=== PATIENT | female | born 1980 | race Caucasian/White ===

== ENCOUNTER 2023-02-12 11:07 | Day surgery (SDC) | payer MEDICARE, MEDICAID, SELFPAY ==
[2023-02-12 06:17] VITALS: BMI 23.8
--- NOTE | 2023-02-12 09:56 | P.CONAN_ITS ---
[facility], [facility] Past Medical History Medical History (Updated 02/12/23 @ 11:39 by Selena Bates RN) Depressed Depression History of electroconvulsive therapy Family History Family history of problems with anesthesia: No Surgical History Surgical History (Updated 02/12/23 @ 11:36 by Selena Bates RN) H/O tooth extraction History of Problems with Anesthesia: No Social History Social History (Updated 02/12/23 @ 11:39 by Selena Bates RN) Patient Tobacco Use Status: Former Tobacco user Are you DNR?: No Advance Directives: No Advance Directives Information Provided: Yes Patient : No FDLMP: 2 WEEKS AGO Meds Allergies Allergy/AdvReac Type Severity Reaction Status Date / Time Sulfa (Sulfonamide Allergy Mild NAUSEA & Verified 02/12/23 11:47 Antibiotics) VOMITING [Sulfa (Sulfonamides)] venlafaxine [From Effexor] Allergy Mild RASH Verified 02/12/23 11:47 sulfamethoxazole AdvReac Mild NAUSEA Verified 02/12/23 11:47 [From Bactrim] trimethoprim [From Bactrim] AdvReac Mild NAUSEA Verified 02/12/23 11:47 Home Medications Medication Instructions Recorded Confirmed Last Taken Type buspirone 30 mg tablet 30 mg PO BID 02/12/23 02/12/23 02/09/23 History cholecalciferol (vitamin D3) 125 125 mcg PO DAILY 02/12/23 02/12/23 02/09/23 History mcg (5,000 unit) capsule famotidine 20 mg tablet 20 mg PO DAILY 02/12/23 02/12/23 02/09/23 History propranolol 10 mg tablet 10 mg PO TID 02/12/23 02/12/23 02/09/23 History sertraline 100 mg tablet 100 mg PO BID 02/12/23 02/12/23 02/09/23 History Exam Exam Date and Time: February 12, 2023 0956 Height,Weight and Vital Signs: Height 5 ft 1 in Weight 57.153 kg Airway Mallampati Class: II (caps top front 2) TM Dist: >3cm Neck ROM: Full Heart: rrr Lungs: cta Assessment and Plan Assessment Anesthesia Assessment: Anesthesia Plan Discussed and Chart Reviewed Final Anesthetic Review Family History of Problems with Anesthesia: No History of Problems with Anesthesia: No NPO: Yes ASA Class: II Final Preanesthetic Review: No Changes in Pt Med Stat, Meds/Allgs Chart Reviewed and Consent Obtained/Reviewed Patient Risk: Intermediate Procedure Risk: Intermediate Anesthetic Plan Anesthetic Plan: MAC: Disposition: Standard PACU
[2023-02-12 11:28] VITALS: BP 123/98; PULSE 85; RESP 20; TEMP 36.6; O2SAT 96
[2023-02-12 12:12] LABS: UPreg QC Valid YES; Urine Pregnancy NEGATIVE (NEGATIVE)
[2023-02-12 13:50] VITALS: BP 109/71; PULSE 75; RESP 16; TEMP 36.5; O2SAT 99
--- NOTE | 2023-02-12 14:00 | PM.OP ---
Brief Operative Note Date of Service: 02/12/23 Pre-op diagnosis: Abnormal CT of colon Post-op diagnosis: other (Sigmoid colon mass, colon polyps) Procedure: Colonoscopy to the cecum with biopsies of distal sigmoid colon mass, hot snare polypectomy x 2, placement of 2 Resolution clips at the 25cm polypcetomy site, and placement of submucosal ink Surgeon: Ashok Travis Anesthesia: MAC Was an [employer] used for this Procedure?: No Estimated blood loss (mL): 3.0 Pathology: other (A. Ascending colon B. Ascending colon polyp C. Polyp at 25cm D. Sigmoid mass at 15cm) Condition: stable Disposition: PACU
[2023-02-12 14:05] VITALS: BP 122/74; PULSE 71; RESP 16; TEMP 36.5; O2SAT 99
--- NOTE | 2023-02-13 00:01 | OP_ITS ---
DATE OF SERVICE: 02/12/2023 SURGEON: Ashok Travis MD INDICATIONS: The patient presents for evaluation of abnormal CT scan of colon and change in bowel habits. Full consent has been obtained from her for this, including risks of bleeding and perforation. PREOPERATIVE DIAGNOSIS: POSTOPERATIVE DIAGNOSIS: PROCEDURE PERFORMED: Colonoscopy to the cecum with biopsies, placement of submucosal ink markings, hot snare polypectomy x 2, placement of Resolution clips on the polypectomy site at 25 cm, and biopsies of colon mass. ESTIMATED BLOOD LOSS: COMPLICATIONS: ANESTHESIA: Monitored anesthesia care. ASSISTANTS: SPECIMENS: PREOPERATIVE DIAGNOSES: Abnormal CT scan of colon and change in bowel habits. POSTOPERATIVE DIAGNOSES: Abnormal CT scan of colon and change in bowel habits, distal sigmoid colon mass, colon polyps, rule out microscopic colitis, and small internal hemorrhoids. DESCRIPTION OF PROCEDURE: The patient was placed in the left lateral decubitus position. The digital rectal exam revealed no abnormalities. The [employer] video pediatric colonoscope was entered into the rectum and advanced easily to the cecum. Once in the cecum, I did identify a normal-appearing cecal pouch with appendiceal orifice and a normal-appearing ileocecal valve. The entire cecum and ileocecal valve appeared normal. There was transillumination of light deep in the right lower quadrant. The scope was then slowly withdrawn assessing all mucosal surfaces carefully. Preparation was excellent. I did not visualize any signs of colitis nor angiodysplasias. I did obtain random biopsies in the ascending colon to rule out microscopic colitis. In the ascending colon was an approximately 8 mm flat, but raised polyp which was removed by hot snare polypectomy and recovered by suction. The polypectomy site appeared clean, without any sign of residual polyp nor bleeding. At 25 cm was a large, approximately 1.5 to 2.0 cm polyp on a long stalk. The polyp was somewhat friable, but without ulceration nor any definitive malignancy judging grossly. I did place 2 clips at the base of the stalk and then removed the polyp at the level of the stalk just above the clips with hot snare. The polyp was recovered with the retrieval net and brought out of the patient. The scope was advanced back to the polypectomy site, which appeared to be clean and without any sign of residual polyp nor bleeding. Both clips remained on the polypectomy site. I did place a submucosal ink parvin just distal to that polypectomy site. At the distal sigmoid colon at approximately 15 cm, definitely above the rectum, was a large, multilobulated polypoid lesion encompassing half the circumference of the colon on a very broad base. Given its appearance, I did not feel this was amenable to endoscopic removal. Multiple biopsies were obtained from it. It was somewhat friable. The lesion definitely obviously appeared to be at least a villous adenoma, but there was no ulceration. After the biopsies, I did place submucosal ink lemon just proximal and just distal to the lesion. In the rectum, the scope was retroflexed visualizing some small internal hemorrhoids but no other pathology. The rectal mucosa appeared normal on both the forward viewing and retroflexed positions. The scope was then withdrawn from the patient. She tolerated the procedure well and was returned to the recovery area in stable condition. IMPRESSION: 1. Distal sigmoid colon mass. 2. Colon polyps. PLAN: The results of the pathology will be checked. Given the large distal sigmoid colon mass, I expect she will definitely need surgery given its appearance even if today's biopsies do not show any malignancy. She will be scheduled to meet with a surgeon in the very near future. She was advised to stay off all aspirin and NSAIDs long-term. She will need a followup colonoscopy in 1 year. Her siblings should be checked as well given her young age. This has all been reviewed with her sister, Jeremy, who is waiting for her today. MD KIRSTEN Arnold/ALVARO / [id number] MTDD
== END 2023-02-12 14:30 | disposition home or self-care (01) ==
PROVIDERS: Anesthesiology; PCP Registered Nurse; Visit Provider Internal Medicine
PROC: 0DJD8ZZ Inspection of Lower Intestinal Tract, Via Natural or Artificial Opening Endoscopic (ICD-10-PCS; CPT 45378; principal; 2023-02-12 12:20)
DX: R19.4 Change in bowel habit (principal); R19.7 Diarrhea, unspecified; D12.2 Benign neoplasm of ascending colon; D12.5 Benign neoplasm of sigmoid colon; D12.7 Benign neoplasm of rectosigmoid junction; K63.9 Disease of intestine, unspecified; K21.9 Gastro-esophageal reflux disease without esophagitis; K64.8 Other hemorrhoids; Z79.899 Other long term (current) drug therapy; Z88.2 Allergy status to sulfonamides; Z88.8 Allergy status to other drugs, medicaments and biological substances
CPT/HCPCS: 45385; 45380; 45381; 81025; 88305

== ENCOUNTER 2023-02-17 09:14 | Outpatient (REF) | payer MEDICARE, MEDICAID, SELFPAY ==
[2023-02-17 09:35] LABS: MANUAL DIFF FLAG NO
[2023-02-17 10:32] LABS: Basophils Percent Auto 0.3 % (0-2); Eosinophils Absolute Auto 0.1 X10*3/uL (0.0-0.4); Eosinophils Percent Auto 1.1 % (0-4); Imm Gran Abs Auto 0.01 X10*3/uL (0.00-0.03); Imm Gran Pct Auto 0.2 % (0.0-0.4); Lymphocytes Absolute Auto 1.4 X10*3/uL (1.2-4.9); Lymphocytes Percent Auto 21.8 % (20-40); Mean Corpuscular HGB Conc 32.6 g/dl (31.0-35.0); Mean Corpuscular Hemoglobin 28.1 pg (27.0-33.0); Mean Corpuscular Volume 86.3 fL (80.0-98.0); Mean Platelet Volume 10.2 fL (9.4-12.3); Monocytes Absolute Auto 0.4 X10*3/uL (0.1-1.2); Monocytes Percent Auto 7.1 % (2-11); Neutrophils Absolute Auto 4.3 x10*3/uL (2.0-8.3); Neutrophils Percent Auto 69.5 % (45-73); Platelet Count 270 X10*3/uL (160-400); Red Blood Count 5.33 X10*6/uL (4.20-5.50); Red Cell Distribution Width 13.5 % (11.0-16.0); White Blood Count 6.2 X10*3/uL (4.8-10.8)
[2023-02-17 11:27] LABS: Alanine Aminotransferase 11 U/L (0-31); Albumin Level 4.4 g/dL (3.5-5.0); Alkaline Phosphatase 73 U/L (39-117); Aspartate Amino Transferase 16 U/L (5-31); Bilirubin Direct 0.2 mg/dL (0.0-0.5); Bilirubin Total 0.8 mg/dL (0.0-1.0); Total Protein 7.1 g/dL (6.5-8.0)
[2023-02-17 11:50] LABS: Carcinoembryonic Antigen < 1.73 ng/mL
== END 2023-02-17 09:15 | disposition home or self-care (01) ==
LOC: HO.LAB 09:14
PROVIDERS: PCP Registered Nurse; Visit Provider Internal Medicine
DX: K63.89 Other specified diseases of intestine (principal)
CPT/HCPCS: 36415; 80076; 82378; 85025

== ENCOUNTER → 2023-02-18 14:22 | Outpatient (BNVA) | payer MEDICARE, MEDICAID, SELFPAY | PROVIDERS: PCP Registered Nurse; Referring Provider Internal Medicine; Visit Provider Surgery | DX: K63.89 Other specified diseases of intestine (principal); K21.9 Gastro-esophageal reflux disease without esophagitis; F41.8 Other specified anxiety disorders | CPT/HCPCS: 99202 ==

== ENCOUNTER 2023-03-04 06:00 | Inpatient (IN) | payer MEDICARE, MEDICAID, SELFPAY ==
[2023-02-24 10:20] VITALS: BMI 23.8
--- NOTE | 2023-03-03 08:50 | P.CONAN_ITS ---
Documented by User: Sydnee Clements NP 03/03/23 08:50 HPI - Anesthesia Eval Consult details Narrative: 42yo F for Hand Assist Colon Resection Laparoscopic Sigmoid,poss open ,poss stoma s/p colo 01/2023 with MAC PMFSH Active Problems Active Problems: All Active Problems (Updated 02/24/23 @ 10:19 by Amarilis Lerma RN) Mass of colon (Acute) Past Medical History Medical History Anxiety Depression GERD (gastroesophageal reflux disease) History of electroconvulsive therapy Family History Family history of problems with anesthesia: No Surgical History Surgical History H/O tooth extraction Hx of colonoscopy History of Problems with Anesthesia: No Social History Social History (Updated 02/24/23 @ 09:42 by Amarilis Lerma RN) Household Members Other:: roomate Are you a primary care management associate to a significant other at home: No Do you presently have visiting nurse or other home services: No Patient Tobacco Use Status: Former Tobacco user Tobacco use type: Smokeless Tobacco e-Cigarette/Vaping Use: Currently Using Substance Use Type: Marijuana Meds Allergies Allergy/AdvReac Type Severity Reaction Status Date / Time Sulfa (Sulfonamide Allergy Mild NAUSEA & Verified 03/04/23 06:27 Antibiotics) VOMITING [Sulfa (Sulfonamides)] venlafaxine [From Effexor] Allergy Mild RASH Verified 03/04/23 06:27 sulfamethoxazole AdvReac Mild NAUSEA Verified 03/04/23 06:27 [From Bactrim] trimethoprim [From Bactrim] AdvReac Mild NAUSEA Verified 03/04/23 06:27 Home Medications Medication Instructions Recorded Confirmed Last Taken Type buspirone 30 mg tablet 30 mg PO BID 02/12/23 02/24/23 03/04/23 05:00 History cholecalciferol (vitamin D3) 125 125 mcg PO DAILY 02/12/23 02/24/23 03/03/23 History mcg (5,000 unit) capsule famotidine 20 mg tablet 20 mg PO BEDTIME 02/12/23 02/24/23 03/03/23 History propranolol 10 mg tablet 10 mg PO BID 02/12/23 02/24/23 03/04/23 05:00 History sertraline 100 mg tablet 200 mg PO DAILY 02/12/23 02/24/23 03/04/23 05:00 History Exam Exam Date and Time: March 03, 2023 0850 Height,Weight and Vital Signs: Height 5 ft 1 in Weight 57.153 kg Assessment and Plan Assessment Anesthesia Assessment: Chart Reviewed Final Anesthetic Review Family History of Problems with Anesthesia: No History of Problems with Anesthesia: No Documented by User: Georgi Fagan MD 03/04/23 07:31 PENDING SALE TO [facility] Past Medical History Medical History Anxiety Depression GERD (gastroesophageal reflux disease) History of electroconvulsive therapy Surgical History Surgical History H/O tooth extraction Hx of colonoscopy Social History Social History (Updated 02/24/23 @ 09:42 by Amarilis Lerma RN) Household Members Other:: roomate Are you a primary care management associate to a significant other at home: No Do you presently have visiting nurse or other home services: No Patient Tobacco Use Status: Former Tobacco user Tobacco use type: Smokeless Tobacco e-Cigarette/Vaping Use: Currently Using Substance Use Type: Marijuana Meds Allergies Allergy/AdvReac Type Severity Reaction Status Date / Time Sulfa (Sulfonamide Allergy Mild NAUSEA & Verified 03/04/23 06:27 Antibiotics) VOMITING [Sulfa (Sulfonamides)] venlafaxine [From Effexor] Allergy Mild RASH Verified 03/04/23 06:27 sulfamethoxazole AdvReac Mild NAUSEA Verified 03/04/23 06:27 [From Bactrim] trimethoprim [From Bactrim] AdvReac Mild NAUSEA Verified 03/04/23 06:27 Home Medications Medication Instructions Recorded Confirmed Last Taken Type buspirone 30 mg tablet 30 mg PO BID 02/12/23 02/24/23 03/04/23 05:00 History cholecalciferol (vitamin D3) 125 125 mcg PO DAILY 04/02/24/23 03/03/23 History mcg (5,000 unit) capsule famotidine 20 mg tablet 20 mg PO BEDTIME 02/12/23 02/24/23 03/03/23 History propranolol 10 mg tablet 10 mg PO BID 02/12/23 02/24/23 03/04/23 05:00 History sertraline 100 mg tablet 200 mg PO DAILY 02/12/23 02/24/23 03/04/23 05:00 Histor y Exam Airway Mallampati Class: I TM Dist: >3cm Neck ROM: Full Heart: ok Lungs: ok Assessment and Plan Assessment Anesthesia Assessment: Anesthesia Plan Discussed Final Anesthetic Review NPO: Yes ASA Class: II Final Preanesthetic Review: No Changes in Pt Med Stat, Meds/Allgs Chart Reviewed, Consent Obtained/Reviewed and Anes Risks/Benef Reviewed Patient Risk: Low Procedure Risk: Intermediate Anesthetic Plan Anesthetic Plan: GA and Agree w/ Assess. and Plan Disposition: Standard PACU
[2023-03-04] VITALS (13 sets, daily range): BP systolic 103–159; BP diastolic 63–83; PULSE 58–85; RESP 12–20; TEMP 36–37; O2SAT 93–99
--- NOTE | 2023-03-04 | ECG_ITS ---
Test Reason : preop Blood Pressure : / mmHG Vent. Rate : 061 BPM Atrial Rate : 061 BPM P-R Int : 180 ms QRS Dur : 084 ms QT Int : 440 ms P-R-T Axes : 068 065 032 degrees QTc Int : 442 ms Normal sinus rhythm Normal ECG When compared with ECG of 22-MAR-2011 19:24, No significant change was found Referred By: Sydnee Clements Electronically Signed By:MARIMAR RIBEIRO MD
[2023-03-04 06:27] LABS: UPreg QC Valid YES; Urine Pregnancy NEGATIVE (NEGATIVE)
[2023-03-04 06:50] LABS: Anion Gap 13 (12-20); Blood Urea Nitrogen 10 mg/dL (9-16); Calcium 9.5 mg/dL (8.4-10.2); Carbon Dioxide 23 mmol/L (22-29); Chloride 105 mmol/L (96-108); Creatinine Clr Calc Pharmacy 53.6; Estimated Glomerular Filt Rate 60; Glucose Fasting 96 mg/dL (60-99); Potassium 3.3 mmol/L (3.3-5.1); Sodium 138 mmol/L (135-145)
[2023-03-04] MEDS: Lactated Ringers 1,000 ML 100 ML IVCONT (07:00)
--- NOTE | 2023-03-04 07:47 | MHC.SHP ---
Pre-Procedural Eval Section A Date of Service: 03/04/23 The patient is an INPATIENT: No Changes since office visit: No Cold of Flu in the past 2 weeks, No New Medical Problems, No Changes in Medication and No Patient answered all questions The History & Physical has been completed within 30 days and I have reviewed it.: Yes Section B Chief Complaint: Other specified diseases of intestine Allergies: Allergies Allergy/AdvReac Type Severity Reaction Status Date / Time Sulfa (Sulfonamide Allergy Mild NAUSEA & Verified 03/04/23 06:27 Antibiotics) VOMITING [Sulfa (Sulfonamides)] venlafaxine [From Effexor] Allergy Mild RASH Verified 03/04/23 06:27 sulfamethoxazole AdvReac Mild NAUSEA Verified 03/04/23 06:27 [From Bactrim] trimethoprim [From Bactrim] AdvReac Mild NAUSEA Verified 03/04/23 06:27 Plan I have reviewed the history and physical and performed a pertinent physical examination on my patient. No changes have occurred unless specified. Time Spent With Patient Time: Total time managing care of this patient today ____ minutes.
--- NOTE | 2023-03-04 10:17 | W.PM.OPN ---
Operative Note Operative Note Date of Service: 03/04/23 Narrative: Preop diagnosis: Large polyp, rectosigmoid Postop diagnosis: Large polyp, rectosigmoid Procedure: Hand assisted laparoscopic anterior resection with intraop flexible sigmoidoscopy Surgeon: Agus Lackey MD administrative office assistant: ROCAEL Silva The patient is a 42-year-old female who had undergone recent colonoscopy because of complaints of severe diarrhea and was noted to have a large polyp at level 15 cm. 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 I had explained to her the technique of resection, hand assisted laparoscopic. I reviewed the risks including but not limited to bleeding, infections anastomotic leak, conversion to open, the need for stoma temporarily, as well as the benefits and alternatives. She had given consent. She was brought to the operating room. She was placed in modified lithotomy position under general anesthesia via endotracheal tube. A Dominique catheter was inserted. The abdomen and the perianal area and perineum were prepped and draped in the usual sterile fashion. A surgical time-out was done. The patient received Cefotan 2 g IV preoperatively. I made a short incision on the midline the like this longitudinal using blade 15. This was carried down with electrocautery through the full-thickness of the skin subcutaneous fat down to the fascia. The fascia was incised. The peritoneum was entered. Through this incision the axis wound retractor was position. The GelPort was attached to this and we insufflated through a port to a pressure of 15 mm hg. With the camera through this insufflating port, I proceeded to then insert a 5/12 mm port in the epigastric area. The camera was moved to this port. I then proceeded to place my hand through the GelPort. With laparoscopic visualization using a 30 degree 10 mm scope, I proceeded to insert a 5 status well in a port in the right lower quadrant. The patient was placed in a head-down and [id number] position. We retracted all the bowel loops away from the pelvis. By doing so was able to visualize the rectum and I proceeded to follow this all with the left colon. I palpated this entire left colon all the way to the rectum. I was able to visualize areas in the sigmoid which had been mention in the op note For the colonoscopy. In the more distal margin, I could feel a mass which was fairly smooth, and mobile with the large polyp. This was actually in the rectosigmoid. I therefore had to mobilize the rectum proceed with an anterior resection to be able to remove this with margins. I incise the peritoneum lateral to the rectosigmoid using the LigaSure. I then continued to incise the peritoneum distally lateral to the rectum going anteriorly using the LigaSure. I proceeded to do the same procedure on the left side of the rectum, incising the peritoneum and connecting the incision anteriorly. At this time therefore, it appeared that the rectum was well mobilized close the floor. I was able to feel clear margins distal to this large polyp with adequate pace for resection. We had to mobilize the rest of the sigmoid by dividing the attachments to the sidewall using the LigaSure. I proceeded to open up the ligaments along the white line of Toldt using the LigaSure as well. I had to mobilize the splenic flexure as well with the LigaSure to allow as adequate length to bring the proximal resected sigmoid down to the pelvis. I could clearly see the spleen we were able to divide the splenocolic attachments without difficulty by placing the patient in head-up position and being on the colon inferiorly At this time it appeared that we had good length to allow anastomosis without tension I proceeded to then thin out a segment the proximal rectus on using the LigaSure. This allowed me to create a mesenteric window. I retracted on the rectum to allow space for placement and positioning of the stapler I was able to position an Endo-SHARATH powered stapler, 60 mm through the right lower quadrant port all way to the pelvis. I positioned this across this proximal rectum through the mesenteric defect. This was fired the proximals rectum at this point was transected Do then continued to mobilize the rest of the sigmoid although the left colon by dividing and incising the peritoneal attachments. I proceeded to use a point of transection at the level of the left colon/ sigmoid. I created a mesenteric window. I divided this laparoscopically as well with an Endo-SHARATH 30 60 mm powered stapler. I palpated for the pedicle the mesentery of the sigmoid. I divided the mesentery at pants proximal distal to this. Once we had the pedicle clearly defined, proceeded to then bring this loop out through the incision by removing the GelPort. I did ligation of this pedicle an open manner to allow clamps across the pedicle. I transected this pedicle Metzenbaum scissors. I ligated the proximal stump of the pedicle twice using a Polysorb 2-0 tie. I completed transection of the mesentery and the entire specimen was removed. This was sent for immediate gross exam . I observed the divided mesentery these all appeared to be hemostatic I then proceeded to open up the staple line of the proximal stump at the left colon. This was excised with electrocautery. To a medium-sized dilator. I then created a pursestring stitch on the proximal stump using a Prolene 2-0 in preparation for our end-to-end anastomosis. I examined this stump this appeared to be well vascularized without any ischemia. I then proceeded to examine the pelvis. There was note of good hemostasis. The staple line on the rectal stump appeared intact. The 1st assistant in nursing, ROCAEL Silva then proceeded to use the dilator all the way to the stump. We used the 28 mm EEA stapler apparatus all the way into the stump with constant pressure applied to this. We center the EEA stapler anterior to the staple line. The spike was activated. I attached the anvil until this locked in position with the spike. the EEA stapler was tightened. We then fired the EEA stapler to create our anastomosis. The stapler was then pulled out gently through the rectum. we proceeded to do a leak test by immersing the pelvis in a pool of irrigating fluid. The rectum was insufflated multiple times with a bulb syringe until there was good distention of the left colon. There was no evidence of any leak. I then proceeded to do a flexible sigmoidoscopy. I inserted the scope through the anus gently all the way past the staple line. I examined the staple line and this appeared intact without any evidence of any ischemia or any leak. We were examining the pelvis laparoscopically as well as we did this in view of this not seem to be any bubbling on the pool of irrigating fluid in the pelvis. I observed the rest of the bowels laparoscopically and there was no evidence of bowel injury or any bleeding. Once hemostasis was confirmed, I suctioned out the irrigant fluid. We removed the Rodríguez wound retractor. I closed the fascia with a running Maxon 1 stitch. I examined the fascial closure laparoscopically through the epigastric port and there was no bowel loop caught within the sutures. Furthermore, the fascial closure appeared to be intact. I proceeded to then close all skin incisions with john. All incisions were infiltrated with Marcaine 0.5% for postop analgesia. Dressings were applied. The procedure was completed The patient tolerated procedure well. There were no immediate complications. Initial final counts of sponges and instruments were correct. Estimated blood loss was about 50 cc. The urine output was clear. The patient was extubated without difficulty and transferred to the recovery room with stable vital signs.
--- OUTSIDE RECORDS SUMMARY | 2023-03-04 10:50 | XMS_ITS ---
Author Name Ashok Travis Address [address] [place] [address] Organization [facility] Address [address] [place] [address] Care Team Providers Care Dinkey Engine Operator Name Role Phone Ashok Travis Unavailable [phone] PROBLEMS Type Condition ICD9-CM Code TYP72-ZA Code Onset Dates Condition Status SNOMED Code Problem Diarrhea, unspecified type R19.7 Active 89384397 Problem Colonic mass K63.[address] scan, colon R93.3 Active [id number] ALLERGIES Substance Reaction Event Type Date Status Effexor Unknown Drug Allergy Jan, Active Sulfa Antibiotics Unknown Drug Allergy Jan, Act misael ENCOUNTERS Encounter Location Date Diagnosis [facility] [address] [place] [phone] 14 Jan, 2023 Colonic mass K63.89 [facility] Outpatient [address] [place] [id number] 14 Jan, 2023 [facility] [address] [place] [phone] Jan, [facility] [address] [place] [phone] Jan, Diarrhea, unspecified type R19.[address] scan, colon R93.3 IMMUNIZATIONS No Known Immunizations SOCIAL HISTORY Qualifiers Date Never Smoker REASON FOR REFERRAL FUNCTIONAL STATUS PLAN OF CARE Activity Details VITAL SIGNS Weight 126 lbs 2023-02-10 Height 61 in 2023-02-10 BMI 23.80 kg/m2 2023-02-10 Temperature 98.2 degrees Fahrenheit Blood pressure systolic 000 mm Hg Blood pressure diastolic 00 mm Hg 2023-01 MEDICATIONS Medication Instructions Dosage Frequency Start Date End Date Duration Status Sertraline HCl 200 MG Orally Once a day 1 capsule 24h 12 Jan, 2023 30 day(s) Active busPIRone HCl 30 MG Orally Twice a day 1 tablet 12h 12 Jan, 2023 Active Propranolol HCl 10 MG TAKE 1 TABLET BY MOUTH THREE TIMES DAILY 90 Active Famotidine 20 MG 90 Active Vitamin D3 125 MCG (5000 UT) TAKE ONE CAPSULE BY MOUTH EVERY DAY Diagnosis Unavailable 30 Active PROCEDURES Procedure Date Ordered Result Body Site BP SCR NOT PRFRM REC REASON NOS February 10, 2023 TOBACCO NON-USER February 10, 2023 DOC MEDS VERIFIED W/PT OR RE February 10, 2023 RESULTS Name Result Date Reference Range Complete Blood Count Auto Diff 2023-02-17 White Blood Count 6.2 4.8-10.8 Red Blood Count 5.33 4.20-5.50 Hemoglobin 15.0 12.0-16.0 Hematocrit 46.0 37.0-47.0 Mean Corpuscular Volume 86.3 80.0 -98.0 Mean Corpuscular Hemoglobin 28.1 27.0-33.0 Mean Corpuscular HGB Conc 32.6 31 .0-35.0 Red Cell Distribution Width 13.5 11.0-16.0 Platelet Count 270 160-400 Mean Platelet Volume 10.2 9.4-12. 3 Neutrophils Percent Auto 69.5 45- 73 Imm Gran Pct Auto 0.2 0.0-0.4 Lymphocytes Percent Auto 21.8 20- 40 Monocytes Percent Auto 7.1 2-11 Eosinophils Percent Auto 1.1 0-4 Basophils Percent Auto 0.3 0-2 NRBC Pct Auto 0.0 0.0-0.2 Neutrophils Absolute Auto 4.3 2. 0-8.3 Imm Gran Abs Auto 0.01 0.00-0.03 Lymphocytes Absolute Auto 1.4 1. 2-4.9 Monocytes Absolute Auto 0.4 0.1- 1.2 Eosinophils Absolute Auto 0.1 0. 0-0.4 Basophils Absolute Auto 0.0 0.0- 0.2 NRBC Abs Auto 0.000 0.0-0.012 Liver Panel 2023-02-17 Bilirubin Total 0.8 0.0-1.0 Bilirubin Direct 0.2 0.0-0.5 Aspartate Amino Transferase 16 5-31 Alanine Aminotransferase 11 0-3 1 Total Protein 7.1 6.5-8.0 Albumin Level 4.4 3.5-5.0 Alkaline Phosphatase 73 39-117 Carcinoembryonic Antigen 2023-02-17 Carcinoembryonic Antigen < 1.73 Ur Preg Test 2023-02-12 Urine NEGATIVE NEGATIVE REASON FOR VISIT Call PCP, diarrhea, abn ct scan colon, lock note , Patient presents today for abn ct scan,lesion sigmoid colon Insurance Providers Health Insurance Type Health Plan Insurance Address Health Plan Insurance Phone Health Plan Insurance Name Health Plan Coverage Dates Member ID Patient Relationship to Subscriber Patient Address Patient Phone Patient Name Patient Date of Subscriber ID Subscriber Name Subscriber Date of Group No [place] OF [place] [address] [facility] [phone] [place] self EV GALV[place] [id number] MEDICAID OF [facility] [address]ado [address] [facility] [address] MEDICAID OF [facility] [employer] Ligado self EV GALVIN [id number]
[2023-03-04] MEDS: Lactated Ringers 1,000 ML 80 ML IVCONT (13:13)
[2023-03-04] MEDS: Acetaminophen 1,000 MG/100 ML PIGGYBACK 400 MG IV ×2 (13:13→17:53)
[2023-03-04] MEDS: Morphine Sulfate 4 MG/ML CARTRIDGE IVPUSH ×2 (13:39→17:54)
--- NOTE | 2023-03-04 15:21 | PM.EVENT ---
Event Note Date of Service: 03/04/23 Event Note: seen postop S/P anterior resection today for rectosigmoid polyp appears to have adequate pain control good UO stable VS pain mgt incentive spirometry sister [place] updated Time Spent With Patient Time: Total time managing care of this patient today ____ minutes.
[2023-03-04] MEDS: oxyCODONE HCl Immed Release 5 MG TABLET PO (19:44)
[2023-03-04] MEDS: busPIRone HCl 10 MG TABLET 30 MG PO (19:45)
[2023-03-04] MEDS: Famotidine 20 MG TABLET PO (19:45)
[2023-03-04] MEDS: Propranolol HCL 10 MG TABLET PO (19:45)
[2023-03-05] MEDS: Morphine Sulfate 4 MG/ML CARTRIDGE IVPUSH (00:33)
[2023-03-05] MEDS: 0.9 % Sodium Chloride Flush 3 ML SYRINGE IVFLUSH (00:35)
[2023-03-05 00:39] VITALS: BP 128/72; PULSE 72; RESP 17; TEMP 36.6; O2SAT 95
[2023-03-05] MEDS: Acetaminophen 1,000 MG/100 ML PIGGYBACK 400 MG IV ×4 (01:38→17:59)
[2023-03-05] MEDS: Lactated Ringers 1,000 ML 80 ML IVCONT ×2 (01:41→13:33)
[2023-03-05 04:00] VITALS: BP 120/67; PULSE 78; RESP 17; TEMP 36.3; O2SAT 97
[2023-03-05 07:00] LABS: MANUAL DIFF FLAG NO
[2023-03-05 07:07] LABS: Basophils Percent Auto 0.2 % (0-2); Hematocrit 41.1 % (37.0-47.0); Hemoglobin 13.3 g/dl (12.0-16.0); Imm Gran Abs Auto 0.03 X10*3/uL (0.00-0.03); Imm Gran Pct Auto 0.3 % (0.0-0.4); Lymphocytes Absolute Auto 0.9 X10*3/uL (1.2-4.9); Lymphocytes Percent Auto 8.7 % (20-40); Mean Corpuscular HGB Conc 32.4 g/dl (31.0-35.0); Mean Corpuscular Hemoglobin 28.9 pg (27.0-33.0); Mean Corpuscular Volume 89.2 fL (80.0-98.0); Mean Platelet Volume 10.8 fL (9.4-12.3); Monocytes Absolute Auto 0.7 X10*3/uL (0.1-1.2); Monocytes Percent Auto 6.7 % (2-11); Neutrophils Absolute Auto 8.3 x10*3/uL (2.0-8.3); Neutrophils Percent Auto 84.1 % (45-73); Platelet Count 241 X10*3/uL (160-400); Red Blood Count 4.61 X10*6/uL (4.20-5.50); Red Cell Distribution Width 13.5 % (11.0-16.0); White Blood Count 9.9 X10*3/uL (4.8-10.8)
[2023-03-05 07:30] VITALS: BP 130/61; PULSE 68; RESP 18; TEMP 36.9; O2SAT 100
[2023-03-05] MEDS: ondansetron HCL 4 MG/2 ML VIAL IVPUSH ×3 (07:35→22:28)
[2023-03-05 07:48] LABS: Anion Gap 15 (12-20); Blood Urea Nitrogen 7 mg/dL (9-16); Calcium 8.4 mg/dL (8.4-10.2); Carbon Dioxide 26 mmol/L (22-29); Chloride 104 mmol/L (96-108); Creatinine Clr Calc Pharmacy 68.5; Estimated Glomerular Filt Rate > 60; Glucose Fasting 78 mg/dL (60-99); Sodium 140 mmol/L (135-145)
--- NOTE | 2023-03-05 08:13 | PM.PNGS ---
Subjective Subjective Date of Service: 03/05/23 <Tasia Silva PA-C - Last Filed: 03/05/23 08:24> 03/05/23 <Agus Lackey MD - Last Filed: 03/05/23 10:19> Interval history: C/o nausea and vomiting. Was unable to sleep. Reports incisional pain exacerbated by the vomiting. Has not been OOB. Denies flatus. <Tasia Silva PA-C - Last Filed: 03/05/23 08:24> Physical Exam Vital Signs: Vital Signs: Last Vital Signs Temp 98.4 F 03/05/23 07:30 Pulse 68 03/05/23 07:30 Resp 18 03/05/23 07:30 BP 130/61 03/05/23 07:30 Pulse Ox 100 03/05/23 07:30 O2 Del Method Nasal Cannula 03/05/23 07:30 O2 Flow Rate 2.0 03/05/23 07:30 BMI result Body Mass Index 23.8 <MABEL Hammond Last Filed: 03/05/23 08:24> Const: General: comfortable, no acute distress and alert <MABEL Hammond Last Filed: 03/05/23 08:24> Orientation/consciousness: patient oriented x3 <MABEL Hammond Last Filed: 03/05/23 08:24> Resp: Effort & Inspection: normal respiratory effort <MABEL Hammond Last Filed: 03/05/23 08:24> GI: Inspection: No distended and Yes incision (dressing stained at inferior end ) <Tasia Silva PA-C - Last Filed: 03/05/23 08:24> Palpation (GI): Soft to palpation, Tenderness to palpation present (GI), no guarding and not rigid <MABEL Hammond Last Filed: 03/05/23 08:24> Percussion: Yes normal to percussion <MABEL Hammond Last Filed: 03/05/23 08:24> Skin: General skin exam: no rashes or lesions noted <MABEL Hammond Last Filed: 03/05/23 08:24> Neuro: General: patient oriented x3 and moves all extremities <Tasia Silva PA-C - Last Filed: 03/05/23 08:24> Objective Data Active Medications Al Hydroxide/Mg Hydroxide (Magnesium Hydrox/Alum Hydrox 30 Ml Oral.Susp) 30 ml PO Q6H PRN PRN Reason: Heartburn Buspirone HCl (Buspirone Hcl 10 Mg Tablet) 30 mg PO BID REPLACED BY [facility] Last Admin: 03/04/23 19:45 Dose: 30 mg Documented By: MARILYNN Famotidine (Famotidine 20 Mg Tablet) 20 mg PO BEDTIME REPLACED BY [facility] Last Admin: 03/04/23 19:45 Dose: 20 mg Documented By: MARILYNN Hydromorphone HCl (Hydromorphone Hcl 0.5 Mg/0.5 Ml Syringe) 0.25 mg IVPUSH Q3H PRN; Protocol PRN Reason: 80 unit/kg - Heparin Protocol Acetaminophen (Ofirmev) 1,000 mg in 100 mls @ 400 mls/hr IV Q6H REPLACED BY [facility] Last Infusion: 03/05/23 06:40 Dose: 0 mls/hr Documented By: JUDSON Lactated Ringer's (Lr) 1,000 mls @ 80 mls/hr IVCONT .[id number] REPLACED BY [facility] Last Infusion: 03/05/23 06:40 Dose: 80 mls/hr Documented By: JUDSON Promethazine HCl 12.5 mg/ (Sodium Chloride) 50.5 mls @ 202 mls/hr IV Q6H PRN PRN Reason: Nausea and Vomiting Melatonin (Melatonin 3 Mg Tablet) 6 mg PO BEDTIME PRN PRN Reason: Insomnia Ondansetron HCl (Ondansetron Hcl 4 Mg/2 Ml Vial) 4 mg IVPUSH Q6H PRN PRN Reason: Nausea Last Admin: 03/05/23 07:35 Dose: 4 mg Documented By: COMFORT Oxycodone HCl (Oxycodone Hcl Immed Release 5 Mg Tablet) 5 mg PO Q4H PRN PRN Reason: Pain, Moderate(Pain Scale 4-6) Last Admin: 03/04/23 19:44 Dose: 5 mg Documented By: MARILYNN Propranolol HCl (Propranolol Hcl 10 Mg Tablet) 10 mg PO BID REPLACED BY [facility]; Protocol Last Admin: 03/04/23 19:45 Dose: 10 mg Documented By: MARILYNN Sertraline HCl (Sertraline Hcl 100 Mg Tablet) 200 mg PO DAILY [facility] Sodium Chloride (0.9 % Sodium Chloride Flush 3 Ml Syringe) 3 ml IVFLUSH QSHIFT [facility] Last Admin: 03/05/23 07:17 Dose: Not Given Documented By: COMFORT Non-Admin Reason: IV Running <Tasia Silva PA-C - Last Filed: 03/05/23 08:24> Labs CBC & Chem 7: 03/05/23 06:07 03/05/23 06:07 <Tasia Silva PA-C - Last Filed: 03/05/23 08:24> Labs: Laboratory Results - last 24 hr 03/05/23 03/05/23 06:07 06:07 MCV 89.2 MCH 28.9 MCHC 32.4 RDW 13.5 Plt Count 241 MPV 10.8 Immature Gran % (Auto) 0.3 Neut % (Auto) 84.1 H Lymph % (Auto) 8.7 L Carson % (Auto) 6.7 Eos % (Auto) 0.0 Baso % (Auto) 0.2 Lymph # (Auto) 0.9 L Carson # (Auto) 0.7 Eos # (Auto) 0.0 Baso # (Auto) 0.0 Abs Immat Gran (auto) 0.03 Absolute Neuts (auto) 8.3 Absolute Nucleated RBC 0.000 Nucleated RBC % (auto) 0.0 Anion Gap 15 Estim Creat Clear Calc 68.5 Estimated GFR > 60 Fasting Glucose 78 Calcium 8.4 D <Tasia Silva PA-C - Last Filed: 03/05/23 08:24> Procedures Date of Service Date of Service: 03/05/23 <Tasia Silva PA-C - Last Filed: 03/05/23 08:24> Progress Note: A&P Assessment and plan (1) Mass of colon: Status: Acute <Tasia Silva PA-C - Last Filed: 03/05/23 08:24> Assessment and Plan: states morphine was making her nauseous complaints of incisional pain denies flatus pain management - switch to Dilaudid clear liquid diet out of bed to chair incentive spirometry sister [place] montiel Seen and examined independently - agree with ROCAEL Silva <Agus Lackey MD - Last Filed: 03/05/23 10:19> (2) S/P colon resection: Status: Acute <MABEL Hammond Last Filed: 03/05/23 08:24> Assessment and Plan: 42 year old female with large rectosigmoid polyp POD#1 s/p DANIS anterior resection. C/o nausea and vomiting this morning. VSS. Abd is benign- soft, dressing intact. Cont antiemetics, IVF, pain control- switch to dilaudid. Cont clear liquids as tolerated for now. Encouraged OOB/ambulation when nausea/vomiting better controlled. Dc soto. IS use. Await pathology. AM labs reviewed. <MABEL Hammond Last Filed: 03/05/23 08:24> Time Spent With Patient Time: Total time managing care of this patient today ____ minutes. <Tasia Silva PA-C - Last Filed: 03/05/23 08:24> Quality Stroke Does the patient have a stroke diagnosis?: No <MABEL Hammond Last Filed: 03/05/23 08:24> VTE Prior VTE?: No <Tasia Silva PA-C - Last Filed: 03/05/23 08:24> VTE Risk Level:: Medical - moderate - high <MABEL Hammond Last Filed: 03/05/23 08:24> VTE Device Contraindication: N/A - Device Ordered <MABEL Hammond Last Filed: 03/05/23 08:24> VTE Drug Contraindication: N/A - Med Ordered <MABEL Hammond Last Filed: 03/05/23 08:24>
--- NOTE | 2023-03-05 09:10 | MHC.CM.PN ---
PATIENT IS IN CHAIR, HOLDING HEAD IN BOTH HANDS, STATING THAT SHE FEELS VERY DIZZY RIGHT NOW SHE IS AWARE HTAT CM WILL RETURN AT A LATER TIME DURING DAY. CM NAME AND REVISIT PLAN WRITTEN ON WHITE BOARD. NO HCP ON FILE IMM 03/05 FIRST ATTEMPT IN CHART
[2023-03-05] MEDS: Sertraline HCL 100 MG TABLET 200 MG PO (09:17)
[2023-03-05] MEDS: Propranolol HCL 10 MG TABLET PO ×2 (09:17→21:22)
[2023-03-05] MEDS: busPIRone HCl 10 MG TABLET 30 MG PO ×2 (09:18→21:22)
[2023-03-05] MEDS: Nicotine 21 MG PATCH.TD24 TRANSDERMA (10:39)
[2023-03-05] MEDS: HYDROmorphone HCl 0.5 MG/0.5 ML SYRINGE 0.25 MG IVPUSH ×3 (10:48→22:28)
--- NOTE | 2023-03-05 13:05 | MHC.CM.PN ---
ON 2ND ATTEMPT TO MEET, PATIENT IS ASLEEP. CALL TO SISTER, ERLINDA, AT [phone]. ERLINDA IS AGREEABLE TO BEING PATIENT'S HCP IF SHE DOES NOT ALREADY HAVE ONE. ERLINDA IS AWARE THAT CASE MANAGEMENT CAN ASSIST WITH COMPLETION WHILE PATIENT IS HERE. PATIENT IS INDEPENDENT WITH ALL ADLS. PCP VERIFIED. NO VNA OR DME IN THE HOME. CASE MANAGEMENT FOLLOWING FOR DC PLAN.
[2023-03-05] MEDS: Heparin Sodium,Porcine 5,000 UNIT/ML VIAL 5000 UNIT SUBCUT ×2 (13:32→21:22)
--- NOTE | 2023-03-05 13:53 | HO.POSTANES ---
Post Anesthesia Evaluation Post Anesthesia Evaluation Vital Signs: Vital Signs Temp Pulse Resp BP Pulse Ox O2 Del Method O2 Flow Rate 03/05/23 07:30 98.4 F 68 18 130/61 100 Nasal Cannula 2.0 03/05/23 04:00 97.3 F 78 17 120/67 97 Anesthesia: General Endotracheal-GETA Mental Status: Awake Pain Control: Satisfactory (pain) Nausea/Vomiting: Severe Hydration: Adequate Anesthesia-Related Issues: No Anes. Related Issues
[2023-03-05 15:44] VITALS: BP 104/59; PULSE 84; RESP 18; TEMP 36.7; O2SAT 98
--- NOTE | 2023-03-05 15:49 | PM.EVENT ---
Event Note Date of Service: 03/05/23 Event Note: seen on afternoon rounds still with nausea although better looks comfortable, on recliner continue pain mgt encouraged ambulation ok to have hard candies, chew gum Time Spent With Patient Time: Total time managing care of this patient today ____ minutes.
[2023-03-05 20:00] VITALS: BP 125/62; PULSE 77; RESP 14; TEMP 36.7; O2SAT 98
[2023-03-05] MEDS: Famotidine 20 MG TABLET PO (21:22)
[2023-03-06] MEDS: Acetaminophen 1,000 MG/100 ML PIGGYBACK 400 MG IV ×3 (00:18→20:51)
[2023-03-06] MEDS: Lactated Ringers 1,000 ML 80 ML IVCONT ×2 (02:18→13:54)
[2023-03-06 03:20] VITALS: BP 118/63; PULSE 74; RESP 18; TEMP 36.9; O2SAT 99
[2023-03-06] MEDS: Heparin Sodium,Porcine 5,000 UNIT/ML VIAL 5000 UNIT SUBCUT (04:37)
[2023-03-06] MEDS: oxyCODONE HCl Immed Release 5 MG TABLET PO ×2 (05:44→12:17)
--- NOTE | 2023-03-06 06:20 | PC.NURSE ---
abd dsg reinforced due to small amt of blood leaking through old pad.
[2023-03-06 07:28] VITALS: BP 112/57; PULSE 78; RESP 18; TEMP 36.3; O2SAT 98
[2023-03-06] MEDS: Sertraline HCL 100 MG TABLET 200 MG PO (08:16)
[2023-03-06] MEDS: Nicotine 21 MG PATCH.TD24 TRANSDERMA (08:17)
[2023-03-06] MEDS: busPIRone HCl 10 MG TABLET 30 MG PO ×2 (08:17→20:58)
[2023-03-06] MEDS: Propranolol HCL 10 MG TABLET PO ×2 (08:17→20:58)
[2023-03-06] MEDS: ondansetron HCL 4 MG/2 ML VIAL IVPUSH ×3 (08:22→22:54)
--- NOTE | 2023-03-06 10:40 | P.PNGS_ITS ---
Subjective Subjective Date of Service: 03/06/23 Interval history: pt doing a little better but still with nausea not passing gas yet walked around not feeling appetite to drink broth. pain better with dilaudid Physical Exam Vital Signs: Vital Signs: Last Vital Signs Temp 97.4 F 03/06/23 07:28 Pulse 78 03/06/23 07:28 Resp 18 03/06/23 07:28 BP 112/57 L 03/06/23 07:28 Pulse Ox 98 03/06/23 07:28 O2 Del Method Room Air 03/06/23 07:28 O2 Flow Rate 2.0 03/05/23 07:30 BMI result Body Mass Index 23.8 Const: General: cooperative, healthy appearing and in distress mild Eyes: General: appearance normal, both eyes and all related structures Resp: Effort & Inspection: normal respiratory effort Auscultation: clear to auscultation bilaterally Cardio: Rate: regular rate Rhythm: regular rhythm GI: Other: soft tender at incision good bowel sounds inf incision edge of wound with some bright blood ooze - pressure held and surgifoam placed and dressing placed. Objective Data Active Medications Al Hydroxide/Mg Hydroxide (Magnesium Hydrox/Alum Hydrox 30 Ml Oral.Susp) 30 ml PO Q6H PRN PRN Reason: Heartburn Buspirone HCl (Buspirone Hcl 10 Mg Tablet) 30 mg PO BID [facility] Last Admin: 03/06/23 08:17 Dose: 30 mg Documented By: RAFAL Famotidine (Famotidine 20 Mg Tablet) 20 mg PO BEDTIME [facility] Last Admin: 03/05/23 21:22 Dose: 20 mg Documented By: TIM Heparin Sodium (Porcine) (Heparin Sodium,Porcine 5,000 Unit/Ml Vial) 5,000 unit SUBCUT Q8H [facility] Last Admin: 03/06/23 04:37 Dose: 5,000 unit Documented By: TIM Hydromorphone HCl (Hydromorphone Hcl 0.5 Mg/0.5 Ml Syringe) 0.25 mg IVPUSH Q3H PRN; Protocol PRN Reason: 80 unit/kg - Heparin Protocol Last Admin: 03/05/23 22:28 Dose: 0.25 mg Documented By: SIN Acetaminophen (Ofirmev) 1,000 mg in 100 mls @ 400 mls/hr IV Q6H [facility] Last Infusion: 03/06/23 06:45 Dose: 0 mls/hr Documented By: TIM Lactated Ringer's (Lr) 1,000 mls @ 80 mls/hr IVCONT .[id number] [facility] Last Admin: 03/06/23 02:18 Dose: 80 mls/hr Documented By: SIN Promethazine HCl 12.5 mg/ (Sodium Chloride) 50.5 mls @ 202 mls/hr IV Q6H PRN PRN Reason: Nausea and Vomiting Last Infusion: 03/05/23 18:35 Dose: 0 mls/hr Documented By: COMFORT Melatonin (Melatonin 3 Mg Tablet) 6 mg PO BEDTIME PRN PRN Reason: Insomnia Nicotine (Nicotine 21 Mg Patch.Td24) 21 mg TRANSDERMA DAILY [facility] Last Admin: 03/06/23 08:17 Dose: 21 mg Documented By: RAFAL Ondansetron HCl (Ondansetron Hcl 4 Mg/2 Ml Vial) 4 mg IVPUSH Q6H PRN PRN Reason: Nausea Last Admin: 03/06/23 08:22 Dose: 4 mg Documented By: RAFAL Oxycodone HCl (Oxycodone Hcl Immed Release 5 Mg Tablet) 5 mg PO Q4H PRN PRN Reason: Pain, Moderate(Pain Scale 4-6) Last Admin: 03/06/23 05:44 Dose: 5 mg Documented By: SIN Propranolol HCl (Propranolol Hcl 10 Mg Tablet) 10 mg PO BID [facility]; Protocol Last Admin: 03/06/23 08:17 Dose: 10 mg Documented By: RAFAL Sertraline HCl (Sertraline Hcl 100 Mg Tablet) 200 mg PO DAILY [facility] Last Admin: 03/06/23 08:16 Dose: 200 mg Documented By: RAFAL Sodium Chloride (0.9 % Sodium Chloride Flush 3 Ml Syringe) [facility] Last Admin: 03/06/23 08:17 Dose: Not Given Documented By: RAFAL Non-Admin Reason: IV Running Zolpidem Tartrate (Zolpidem Tartrate 5 Mg Tablet) 5 mg PO BEDTIME PRN PRN Reason: Insomnia Labs 03/05/23 06:07 03/05/23 06:07 Procedures Date of Service Date of Service: 03/06/23 Progress Note: A&P Assessment and plan (1) S/P colon resection: Status: Acute Plan pod#2 doing well from lap assisted sig resection - go slow with po diet until flatus, will try apple juice and stay away from the broth, ambulate, cont ivf, iv dilaudid to work for now but will change to oxycodone when tolerating better po adv diet accordingly ppi Time Spent With Patient Time: Total time managing care of this patient today ____ minutes. Quality Stroke Does the patient have a stroke diagnosis?: No VTE Prior VTE?: No VTE Risk Level:: Medical - moderate - high VTE Device Contraindication: N/A - Device Ordered VTE Drug Contraindication: N/A - Med Ordered
--- NOTE | 2023-03-06 11:26 | PC.NURSE ---
Addendum entered by Divina Espinoza RN 03/06/23 17:04: Surgical dressing assessed at 1656, staining size increased, MD Motley sent updated picture VIA tiger text. VSS, pt endorsing 7/10 abd pain, PRN Dilaudid given as ordered. Addendum entered by Divina Espinoza RN 03/06/23 17:00: Surgical dressing assessed at 1400, staining size increased, MD Motley sent updated picture of staining. placed new order for silver nitrate sticks. Addendum entered by Divina Espinoza RN 03/06/23 12:23: Surgical dressing assessed at 1200, small bloody staining noted. Stain outlined and dated. MD Motley notified. Per , SQ heparin held and IV Tylenol held due to exceeding daily amount, Pt given PRN oxy for 5/10 abd pain. All safety measures in place, all needs met at this time, will continue plan of care. Original Note: MD Motley at bedside this AM, made aware of overnight dressing reinforcement from night RN due to small amount of bleeding. observed and changed dressing, dressing currently CDI, no new staining noted.
[2023-03-06] MEDS: Pantoprazole Sodium 40 MG/10 ML VIAL IVPUSH (12:11)
[2023-03-06 15:30] VITALS: BP 127/64; PULSE 87; RESP 18; TEMP 36.9; O2SAT 99
[2023-03-06] MEDS: HYDROmorphone HCl 0.5 MG/0.5 ML SYRINGE 0.25 MG IVPUSH ×2 (16:49→20:43)
[2023-03-06 17:26] VITALS: BP 131/68; PULSE 68
[2023-03-06 19:58] VITALS: BP 149/74; PULSE 74; RESP 18; TEMP 36.9; O2SAT 98
--- NOTE | 2023-03-06 21:45 | PM.EVENT ---
Event Note Date of Service: 03/06/23 Event Note: pt having bleeding from incision site - area cleaned and some gelfoam placed near the inf most area of the incision where blood was seeping through. Over the course of the afternoon blood still seeping so bottom 2 john removed and the area probed- fascia intact no sig blood accumulation - silver nitrate to skin edge and fat in a little deeper. small open area packed with surgifoam and pressure bandage applied. will recheck Time Spent With Patient Time: Total time managing care of this patient today ____ minutes.
[2023-03-06 23:54] VITALS: BP 143/65; PULSE 87; RESP 18; TEMP 36.7; O2SAT 97
[2023-03-07] MEDS: Acetaminophen 1,000 MG/100 ML PIGGYBACK 400 MG IV ×2 (02:05→08:32)
[2023-03-07] MEDS: Lactated Ringers 1,000 ML 80 ML IVCONT (02:09)
[2023-03-07 03:26] VITALS: BP 141/66; PULSE 85; RESP 18; TEMP 36.6; O2SAT 97
--- NOTE | 2023-03-07 04:41 | PC.NURSE ---
Dr. Motley came changed the dressing and order to hold Heparin Sub Q due to the bleeding from abdominal wound. encouraged that pt keep the compression booths on while in bed.
[2023-03-07] MEDS: Pantoprazole Sodium 40 MG/10 ML VIAL IVPUSH (06:33)
[2023-03-07 08:00] VITALS: BP 127/70; PULSE 72; RESP 16; TEMP 36.7; O2SAT 98
[2023-03-07] MEDS: busPIRone HCl 10 MG TABLET 30 MG PO ×2 (08:32→22:19)
[2023-03-07] MEDS: 0.9 % Sodium Chloride Flush 3 ML SYRINGE IVFLUSH ×3 (08:32→22:19)
[2023-03-07] MEDS: Propranolol HCL 10 MG TABLET PO ×2 (08:33→22:19)
[2023-03-07] MEDS: Nicotine 21 MG PATCH.TD24 TRANSDERMA (08:33)
[2023-03-07] MEDS: Sertraline HCL 100 MG TABLET 200 MG PO (08:33)
--- NOTE | 2023-03-07 13:06 | P.PNGS_ITS ---
Subjective Subjective Date of Service: 03/07/23 Interval history: doing well passing gas and stool feels much more comfortable no bleeding from incision Physical Exam Vital Signs: Vital Signs: Last Vital Signs Temp 98.0 F 03/07/23 08:00 Pulse 72 03/07/23 08:00 Resp 16 03/07/23 08:00 BP 127/70 03/07/23 08:00 Pulse Ox 98 03/07/23 08:00 O2 Del Method Room Air 03/07/23 08:00 O2 Flow Rate 2.0 03/05/23 07:30 BMI result Body Mass Index 23.8 Const: General: cooperative, healthy appearing, comfortable and no acute distress Orientation/consciousness: patient oriented x3 GI: Other: soft nondistended mild tenderness at incision active bowel sounds Neuro: General: patient oriented x3 Objective Data Active Medications Al Hydroxide/Mg Hydroxide (Magnesium Hydrox/Alum Hydrox 30 Ml Oral.Susp) 30 ml PO Q6H PRN PRN Reason: Heartburn Buspirone HCl (Buspirone Hcl 10 Mg Tablet) 30 mg PO BID [facility] Last Admin: 03/07/23 08:32 Dose: 30 mg Documented By: RAFAL Hydromorphone HCl (Hydromorphone Hcl 0.5 Mg/0.5 Ml Syringe) 0.25 mg IVPUSH Q3H PRN; Protocol PRN Reason: 80 unit/kg - Heparin Protocol Last Admin: 03/06/23 20:43 Dose: 0.25 mg Documented By: TIM Lactated Ringer's (Lr) 1,000 mls @ 80 mls/hr IVCONT .[id number] [facility] Last Infusion: 03/07/23 03:00 Dose: 80 mls/hr Documented By: SIN Promethazine HCl 12.5 mg/ (Sodium Chloride) 50.5 mls @ 202 mls/hr IV Q6H PRN PRN Reason: Nausea and Vomiting Last Infusion: 03/07/23 03:00 Dose: 0 mls/hr Documented By: SIN Acetaminophen (Ofirmev) 1,000 mg in 100 mls @ 400 mls/hr IV Q6H [facility] Melatonin (Melatonin 3 Mg Tablet) 6 mg PO BEDTIME PRN PRN Reason: Insomnia Nicotine (Nicotine 21 Mg Patch.Td24) 21 mg TRANSDERMA DAILY [facility] Last Admin: 03/07/23 08:33 Dose: 21 mg Documented By: RAFAL Ondansetron HCl (Ondansetron Hcl 4 Mg/2 Ml Vial) 4 mg IVPUSH Q6H PRN PRN Reason: Nausea Last Admin: 03/06/23 22:54 Dose: 4 mg Documented By: TIM Oxycodone HCl (Oxycodone Hcl Immed Release 5 Mg Tablet) 5 mg PO Q4H PRN PRN Reason: Pain, Moderate(Pain Scale 4-6) Last Admin: 03/06/23 12:17 Dose: 5 mg Documented By: RAFAL Pantoprazole Sodium (Pantoprazole Sodium 40 Mg/10 Ml Vial) 40 mg IVPUSH DAILY@0630 [facility] Last Admin: 03/07/23 06:33 Dose: 40 mg Documented By: TIM Propranolol HCl (Propranolol Hcl 10 Mg Tablet) 10 mg PO BID [facility]; Protocol Last Admin: 03/07/23 08:33 Dose: 10 mg Documented By: RAFAL Sertraline HCl (Sertraline Hcl 100 Mg Tablet) 200 mg PO DAILY [facility] Last Admin: 03/07/23 08:33 Dose: 200 mg Documented By: RAFAL Sodium Chloride (0.9 % Sodium Chloride Flush 3 Ml Syringe) 3 ml IVFLUSH QSHIFT [facility] Last Admin: 03/07/23 08:32 Dose: 3 ml Documented By: RAFAL Zolpidem Tartrate (Zolpidem Tartrate 5 Mg Tablet) 5 mg PO BEDTIME PRN PRN Reason: Insomnia Labs 03/05/23 06:07 03/05/23 06:07 Procedures Date of Service Date of Service: 03/07/23 Progress Note: A&P Assessment and plan (1) S/P colon resection: Status: Acute Assessment and Plan: pod#3 s/p colectomy doing very well - bleeding stopped and gas moving advance diet stop heparin - pt ambulating well po pain meds stop ivf Time Spent With Patient Time: Total time managing care of this patient today ____ minutes. Quality Stroke Does the patient have a stroke diagnosis?: No VTE Prior VTE?: No VTE Risk Level:: Medical - moderate - high VTE Device Contraindication: N/A - Device Ordered VTE Drug Contraindication: N/A - Med Ordered
[2023-03-07] MEDS: oxyCODONE HCl Immed Release 5 MG TABLET PO ×3 (14:17→23:19)
[2023-03-07 15:40] VITALS: BP 138/73; PULSE 63; RESP 20; TEMP 36.6; O2SAT 97
[2023-03-07] MEDS: Magnesium Hydrox/Alum Hydrox 30 ML ORAL.SUSP PO (17:15)
[2023-03-07 20:00] VITALS: BP 115/73; PULSE 78; RESP 16; TEMP 36.4; O2SAT 98
[2023-03-07 22:18] VITALS: BP 131/68; PULSE 65
[2023-03-07] MEDS: Melatonin 3 MG TABLET 6 MG PO (23:19)
[2023-03-08] MEDS: Magnesium Hydrox/Alum Hydrox 30 ML ORAL.SUSP PO (00:28)
[2023-03-08 03:20] VITALS: BP 103/60; PULSE 73; RESP 16; TEMP 36.3; O2SAT 96
[2023-03-08] MEDS: Pantoprazole Sodium 40 MG/10 ML VIAL IVPUSH (05:44)
[2023-03-08] MEDS: ondansetron HCL 4 MG/2 ML VIAL IVPUSH (06:32)
[2023-03-08 07:46] VITALS: BP 116/67; PULSE 64; RESP 16; TEMP 36.7; O2SAT 98
[2023-03-08 08:27] VITALS: BP 135/78; PULSE 83; RESP 18
[2023-03-08] MEDS: 0.9 % Sodium Chloride Flush 3 ML SYRINGE IVFLUSH ×3 (08:29→21:22)
[2023-03-08] MEDS: Nicotine 21 MG PATCH.TD24 TRANSDERMA (08:29)
[2023-03-08] MEDS: busPIRone HCl 10 MG TABLET 30 MG PO ×2 (08:31→20:16)
[2023-03-08] MEDS: Propranolol HCL 10 MG TABLET PO ×2 (08:31→20:16)
[2023-03-08] MEDS: Sertraline HCL 100 MG TABLET 200 MG PO (08:31)
--- NOTE | 2023-03-08 08:36 | P.PNGS_ITS ---
Subjective Subjective Date of Service: 03/08/23 <Tasia Silva PA-C - Last Filed: 03/08/23 08:42> 03/08/23 <Agus Lackey MD - Last Filed: 03/08/23 10:41> Interval history: Bleeding from incision over the weekend- silver nitrate and gelfoam applied. Also reports multiple episodes of loose stools, now passing flatus. C/o mostly gas pains. Has been OOB and ambulating halls. First solid food was last night. <Tasia Silva PA-C - Last Filed: 03/08/23 08:42> Physical Exam Vital Signs: Vital Signs: Last Vital Signs Temp 98.0 F 03/08/23 07:46 Pulse 343 H 03/08/23 08:27 Resp 90 H 03/08/23 08:27 BP 135/78 03/08/23 08:27 Pulse Ox 98 03/08/23 07:46 O2 Del Method Room Air 03/08/23 07:46 O2 Flow Rate 2.0 03/05/23 07:30 BMI result Body Mass Index 23.8 <Tasia Silva PA-C - Last Filed: 03/08/23 08:42> Const: General: comfortable, no acute distress and alert <MABEL Hammond Last Filed: 03/08/23 08:42> Orientation/consciousness: patient oriented x3 <Tasia Silva PA-C - Last Filed: 03/08/23 08:42> Resp: Effort & Inspection: normal respiratory effort <MABEL Hammond Last Filed: 03/08/23 08:42> GI: Other: surrounding erythema <MABEL Hammond Last Filed: 03/08/23 08:42> Inspection: No distended and Yes incision (clean, packing in place to inferior aspect, john intact) <MABEL Hammond Last Filed: 03/08/23 08:42> Palpation (GI): Soft to palpation, Tenderness to palpation present (GI) (mild incisional), no guarding and not rigid <MABEL Hammond Last Filed: 03/08/23 08:42> Skin: General skin exam: no rashes or lesions noted <Tasia Silva PA-C - Last Filed: 03/08/23 08:42> Neuro: General: patient oriented x3 <Tasia Silva PA-C - Last Filed: 03/08/23 08:42> Objective Data Active Medications Acetaminophen (Acetaminophen 325 Mg Tablet) 650 mg PO Q6H PRN PRN Reason: Pain, Mild (Pain Scale 1-3) Al Hydroxide/Mg Hydroxide (Magnesium Hydrox/Alum Hydrox 30 Ml Oral.Susp) 30 ml PO Q6H PRN PRN Reason: Heartburn Last Admin: 03/08/23 00:28 Dose: 30 ml Documented By: MELISSA Buspirone HCl (Buspirone Hcl 10 Mg Tablet) 30 mg PO BID [facility] Last Admin: 03/08/23 08:31 Dose: 30 mg Documented By: JACKSON Hydromorphone HCl (Hydromorphone Hcl 0.5 Mg/0.5 Ml Syringe) 0.25 mg IVPUSH Q3H PRN; Protocol PRN Reason: 80 unit/kg - Heparin Protocol Last Admin: 03/06/23 20:43 Dose: 0.25 mg Documented By: TIM Promethazine HCl 12.5 mg/ (Sodium Chloride) 50.5 mls @ 202 mls/hr IV Q6H PRN PRN Reason: Nausea and Vomiting Last Infusion: 03/07/23 03:00 Dose: 0 mls/hr Documented By: SNI Melatonin (Melatonin 3 Mg Tablet) 6 mg PO BEDTIME PRN PRN Reason: Insomnia Last Admin: 03/07/23 23:19 Dose: 6 mg Documented By: MELISSA Nicotine (Nicotine 21 Mg Patch.Td24) 21 mg TRANSDERMA DAILY [facility] Last Admin: 03/08/23 08:29 Dose: 21 mg Documented By: JACKSON Ondansetron HCl (Ondansetron Hcl 4 Mg/2 Ml Vial) 4 mg IVPUSH Q6H PRN PRN Reason: Nausea Last Admin: 03/08/23 06:32 Dose: 4 mg Documented By: MELISSA Oxycodone HCl (Oxycodone Hcl Immed Release 5 Mg Tablet) 5 mg PO Q4H PRN PRN Reason: Pain, Moderate(Pain Scale 4-6) Last Admin: 03/07/23 23:19 Dose: 5 mg Documented By: MELISSA Pantoprazole Sodium (Pantoprazole Sodium 40 Mg/10 Ml Vial) 40 mg IVPUSH DAILY@0630 [facility] Last Admin: 03/08/23 05:44 Dose: 40 mg Documented By: MELISSA Propranolol HCl (Propranolol Hcl 10 Mg Tablet) 10 mg PO BID [facility]; Protocol Last Admin: 03/08/23 08:31 Dose: 10 mg Documented By: JACKSON Sertraline HCl (Sertraline Hcl 100 Mg Tablet) 200 mg PO DAILY [facility] Last Admin: 03/08/23 08:31 Dose: 200 mg Documented By: JACKSON Sodium Chloride (0.9 % Sodium Chloride Flush 3 Ml Syringe) 3 ml IVFLUSH QSHIFT [facility] Last Admin: 03/08/23 08:29 Dose: 3 ml Documented By: JACKSON Zolpidem Tartrate (Zolpidem Tartrate 5 Mg Tablet) 5 mg PO BEDTIME PRN PRN Reason: Insomnia <Tasia Silva PA-C - Last Filed: 03/08/23 08:42> Labs CBC & Chem 7: 03/05/23 06:07 03/05/23 06:07 <Tasia Silva PA-C - Last Filed: 03/08/23 08:42> Procedures Date of Service Date of Service: 03/08/23 <Tasia Silva PA-C - Last Filed: 03/08/23 08:42> Progress Note: A&P Assessment and plan (1) S/P colon resection: Status: Acute <Tasia Silva PA-C - Last Filed: 03/08/23 08:42> Assessment and Plan: Passing flatus Tolerating diet Been ambulating Looks well Abdomen soft Incisions clean and dry Encouraged to keep ambulating Possible home tomorrow Seen and examined independently <Agus Lackey MD - Last Filed: 03/08/23 10:41> Assessment and Plan: 42 year old female with large rectosigmoid polyp POD#4 s/p DANIS anterior resection. Doing fairly well - c/o gas pains. Having loose stools and now passing flatus. VSS. Abd exam benign - incision clean with mild ecchymosis. No further signs of bleeding from incision. Cont diet as tolerated. Simethicone and ambulation for gas. Home tomorrow if remains stable. Patient comfortable with plan. <MABEL Hammond Last Filed: 03/08/23 08:42> Time Spent With Patient Time: Total time managing care of this patient today ____ minutes. <MABEL Hammond Last Filed: 03/08/23 08:42> Quality Stroke Does the patient have a stroke diagnosis?: No <MABEL Hammond Last Filed: 03/08/23 08:42> VTE Prior VTE?: No <MABEL Hammond Last Filed: 03/08/23 08:42> VTE Risk Level:: Medical - moderate - high <MABEL Hammond Last Filed: 03/08/23 08:42> VTE Device Contraindication: N/A - Device Ordered <MABEL Hammond Last Filed: 03/08/23 08:42> VTE Drug Contraindication: N/A - Med Ordered <MABEL Hammond Last Filed: 03/08/23 08:42>
[2023-03-08] MEDS: Simethicone 80 MG TAB.CHEW PO (11:21)
--- NOTE | 2023-03-08 13:30 | MHC.CM.PN ---
PLAN IS HOME TOMORROW IF PATIENT REMAINS STABLE. NO SERVICE NEEDS ANTICIPATED. PATIENT WAS REMINDED THAT CM CAN ASSIST WITH HCP IF SHE WOULD LIKE TO COMPLETE ONE.
--- NOTE | 2023-03-08 14:52 | PM.EVENT ---
Event Note Date of Service: 03/08/23 Event Note: Seen on afternoon rounds Appears comfortable Describes some ?gas pains? States she continues to feel better Tolerating diet Passing flatus BMs loose Abdomen soft and benign Continue ambulation, pain managed Appears to be doing well postop Time Spent With Patient Time: Total time managing care of this patient today ____ minutes.
[2023-03-08 15:17] VITALS: BP 119/67; PULSE 68; RESP 18; TEMP 36.2; O2SAT 96
[2023-03-08 19:39] VITALS: BP 131/76; PULSE 71; RESP 20; TEMP 36.5; O2SAT 96
[2023-03-08] MEDS: Acetaminophen 325 MG TABLET 650 MG PO (20:22)
--- NOTE | 2023-03-09 01:07 | PC.NURSE ---
Abdominal incision open to air, small bottom portion has no john (removed by Md yesterday) Edges of incision in that area is slightly apart (same as yesterday)no bleeding, patient is anxious of keeping it open stating the area is getting bigger. This RN applied 2 steri strips and covered the area with large band-aid. Patient feels more comfortable. Applied dsg is dry and intact.
[2023-03-09 04:00] VITALS: BP 131/82; PULSE 65; RESP 17; TEMP 36.3; O2SAT 98
[2023-03-09] MEDS: Pantoprazole Sodium 40 MG/10 ML VIAL IVPUSH (06:27)
[2023-03-09] MEDS: busPIRone HCl 10 MG TABLET 30 MG PO (07:24)
[2023-03-09] MEDS: Propranolol HCL 10 MG TABLET PO (07:25)
[2023-03-09] MEDS: Sertraline HCL 100 MG TABLET 200 MG PO (07:25)
[2023-03-09] MEDS: 0.9 % Sodium Chloride Flush 3 ML SYRINGE IVFLUSH (07:26)
[2023-03-09 07:29] VITALS: BP 130/74; PULSE 78; RESP 18; TEMP 36.4; O2SAT 98
--- NOTE | 2023-03-09 10:19 | P.PNGS_ITS ---
Subjective Subjective Date of Service: 03/11/23 <Tasia Silva PA-C - Last Filed: 03/11/23 11:55> 03/09/23 <Agus Lackey MD - Last Filed: 03/09/23 10:53> Interval history: She feels better today. Less gas pains. Continues to tolerate a solid diet. Loose stools are improving. Wants to go home. <Tasia Silva PA-C - Last Filed: 03/11/23 11:55> Physical Exam Vital Signs: Vital Signs: Last Vital Signs Temp 97.6 F 03/09/23 07:29 Pulse 78 03/09/23 07:29 Resp 18 03/09/23 07:29 BP 130/74 03/09/23 07:29 Pulse Ox 98 03/09/23 07:29 O2 Del Method Room Air 03/09/23 07:29 O2 Flow Rate 2.0 03/05/23 07:30 BMI result Body Mass Index 23.8 <Tasia Silva PA-C - Last Filed: 03/11/23 11:55> Const: General: comfortable, no acute distress and alert <Tasia Silva PA-C - Last Filed: 03/11/23 11:55> Orientation/consciousness: patient oriented x3 <Tasia Silva PA-C - Last Filed: 03/11/23 11:55> Resp: Effort & Inspection: normal respiratory effort <Tasia Silva PA-C - Last Filed: 03/11/23 11:55> GI: Inspection: No distended and Yes incision (clean, no erythema, small open area of inferior aspect, ecchymosis) <Tasia Silva PA-C - Last Filed: 03/11/23 11:55> Palpation (GI): Soft to palpation and Tenderness to palpation present (GI) (incisional, mild) <MABEL Hammond Last Filed: 03/11/23 11:55> Percussion: Yes normal to percussion <MABEL Hammond Last Filed: 03/11/23 11:55> Skin: General skin exam: no rashes or lesions noted <MABEL Hammond Last Filed: 03/11/23 11:55> Neuro: General: patient oriented x3 <Tasia Silva PA-C - Last Filed: 03/11/23 11:55> Objective Data Active Medications Acetaminophen (Acetaminophen 325 Mg Tablet) 650 mg PO Q6H PRN PRN Reason: Pain, Mild (Pain Scale 1-3) Last Admin: 03/08/23 20:22 Dose: 650 mg Documented By: TIM Al Hydroxide/Mg Hydroxide (Magnesium Hydrox/Alum Hydrox 30 Ml Oral.Susp) 30 ml PO Q6H PRN PRN Reason: Heartburn Last Admin: 03/08/23 00:28 Dose: 30 ml Documented By: MELISSA Buspirone HCl (Buspirone Hcl 10 Mg Tablet) 30 mg PO BID [facility] Last Admin: 03/09/23 07:24 Dose: 30 mg Documented By: GEMMA Hydromorphone HCl (Hydromorphone Hcl 0.5 Mg/0.5 Ml Syringe) 0.25 mg IVPUSH Q3H PRN; Protocol PRN Reason: 80 unit/kg - Heparin Protocol Last Admin: 03/06/23 20:43 Dose: 0.25 mg Documented By: TIM Promethazine HCl 12.5 mg/ (Sodium Chloride) 50.5 mls @ 202 mls/hr IV Q6H PRN PRN Reason: Nausea and Vomiting Last Infusion: 03/07/23 03:00 Dose: 0 mls/hr Documented By: SIN Melatonin (Melatonin 3 Mg Tablet) 6 mg PO BEDTIME PRN PRN Reason: Insomnia Last Admin: 03/07/23 23:19 Dose: 6 mg Documented By: MELISSA Nicotine (Nicotine 21 Mg Patch.Td24) 21 mg TRANSDERMA DAILY [facility] Last Admin: 03/09/23 07:26 Dose: Not Given Documented By: GEMMA Non-Admin Reason: Patient Refused Ondansetron HCl (Ondansetron Hcl 4 Mg/2 Ml Vial) 4 mg IVPUSH Q6H PRN PRN Reason: Nausea Last Admin: 03/08/23 06:32 Dose: 4 mg Documented By: MELISSA Oxycodone HCl (Oxycodone Hcl Immed Release 5 Mg Tablet) 5 mg PO Q4H PRN PRN Reason: Pain, Moderate(Pain Scale 4-6) Last Admin: 03/07/23 23:19 Dose: 5 mg Documented By: MELISSA Pantoprazole Sodium (Pantoprazole Sodium 40 Mg/10 Ml Vial) 40 mg IVPUSH DAILY@0630 [facility] Last Admin: 03/09/23 06:27 Dose: 40 mg Documented By: TIM Propranolol HCl (Propranolol Hcl 10 Mg Tablet) 10 mg PO BID [facility]; Protocol Last Admin: 03/09/23 07:25 Dose: 10 mg Documented By: GEMMA Sertraline HCl (Sertraline Hcl 100 Mg Tablet) 200 mg PO DAILY [facility] Last Admin: 03/09/23 07:25 Dose: 200 mg Documented By: GEMMA Simethicone (Simethicone 80 Mg Tab.Chew) 80 mg PO QIDWMHS PRN PRN Reason: Gas Last Admin: 03/08/23 11:21 Dose: 80 mg Documented By: JACKSON Sodium Chloride (0.9 % Sodium Chloride Flush 3 Ml Syringe) 3 ml IVFLUSH QSHIFT [facility] Last Admin: 03/09/23 07:26 Dose: 3 ml Documented By: GEMMA Zolpidem Tartrate (Zolpidem Tartrate 5 Mg Tablet) 5 mg PO BEDTIME PRN PRN Reason: Insomnia <Tasia Silva PA-C - Last Filed: 03/11/23 11:55> Labs CBC & Chem 7: 03/05/23 06:07 03/05/23 06:07 <Tasia Silva PA-C - Last Filed: 03/11/23 11:55> Procedures Date of Service Date of Service: 03/09/23 <Agus Lackey MD - Last Filed: 03/09/23 10:53> Progress Note: A&P Assessment and plan (1) S/P colon resection: Status: Acute <Tasia Silva PA-C - Last Filed: 03/11/23 11:55> Assessment and Plan: Feels well Says she is not taking pain meds Diarrhea better Passing flatus Tolerating diet Abdomen soft Incision clean - open area on the lower most part, with scanty drainage, some subcutaneous fat necrosis Dressings changed on this area She says she is ready to be discharged Path report benign - patient aware Seen and examined independently <Agus Lackey MD - Last Filed: 03/09/23 10:53> Assessment and Plan: ?42 year old female with large rectosigmoid polyp POD#5 s/p DANIS anterior resection. Doing well and feels improved. Tolerating diet and has good GI function. VSS. Abd exam benign - incision clean with mild ecchymosis, some serosanguineous drainage, packing removed. No further signs of bleeding from incision. Stable for dc to home today. F/u in office in 2 weeks. Patient comfortable with plan. Pathology: A.? Colon, sigmoid, segmental resection: - Tubulovillous adenoma with focal high grade dysplasia; negative for c arcinoma; margins negative. - 17 reactive appearing lymph nodes. B.? EEA rings:? Colonic tissue within normal limits. <Tasia Silva PA-C - Last Filed: 03/11/23 11:55> Time Spent With Patient Time: Total time managing care of this patient today ____ minutes. <Tasia Silva PA-C - Last Filed: 03/11/23 11:55> Quality Stroke Does the patient have a stroke diagnosis?: No <Tasia Silva PA-C - Last Filed: 03/11/23 11:55> VTE Prior VTE?: No <Tasia Silva PA-C - Last Filed: 03/11/23 11:55> VTE Risk Level:: Medical - moderate - high <Tasia Silva PA-C - Last Filed: 03/11/23 11:55> VTE Device Contraindication: N/A - Device Ordered <Tasia Silva PA-C - Last Filed: 03/11/23 11:55> VTE Drug Contraindication: N/A - Med Ordered <Tasia Silva PA-C - Last Filed: 03/11/23 11:55>
--- NOTE | 2023-03-09 10:50 | MHC.CM.PN ---
HOME - SELF CARE IMM 03/08 IN CHART
--- NOTE | 2023-03-11 11:56 | P.DS_ITS ---
DS: Providers Provider Date of Service: 03/09/23 Date of admission: 03/04/23 06:00 Primary care physician: Cait Fagan APRN Attending physician on admission: Agus Lackey DS: Diagnosis Discharge Diagnosis (1) S/P colon resection: Status: Acute DS: Summary Hospital Course Hospital Course: HPI AT ADMISSION: The patient is a 42-year-old female who had undergone recent colonoscopy because of complaints of severe diarrhea and was noted to have a large polyp at level 15 cm. 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 In view of the large multilobulated polypoid mass, it was recommended to proceed with sigmoid resection. She presents now for the procedure. HOSPITAL COURSE: On 03/04/23, a hand assisted anterior resection was performed by Dr. Lackey without complication. The patient initially had nausea/vomiting post operatively. This resolved and her diet was slowly advanced from clear liquids to solid. She began to pass flatus and loose stools. She was ambulated through out her stay. She had bleeding from her incision- it was probed and the fascia was intact with no significant blood accumulation and needed needed silver nitrate application to the subq fat. No further bleeding was noted. Heparin was discontinued. On the day of discharge, she was tolerating a solid diet without nausea or vomiting, had good GI function. Her abdomen was benign with a clean incision. She was discharged on 03/09/23 in stable condition. Pathology was reviewed with the patient. She is to follow up in the office for staple removal. Status at Discharge Functional status at discharge: independent ambulation Overall status at discharge: patient is progressing back to baseline Time Spent with Patient Time attestation: Total time managing care of this patient today ____ minutes. Discharge coordination time: Less than 30 minutes Quality: Safe Use of Opioids Does Pt have an Active Cancer Diagnosis on the Problem List?: No Quality: Stroke Does the patient have a stroke diagnosis?: No Physical Exam Vital Signs: Vital Signs: Last Vital Signs Temp 97.6 F 03/09/23 07:29 Pulse 78 03/09/23 07:29 Resp 18 03/09/23 07:29 BP 130/74 03/09/23 07:29 Pulse Ox 98 03/09/23 07:29 O2 Del Method Room Air 03/09/23 07:29 O2 Flow Rate 2.0 03/05/23 07:30 BMI result Body Mass Index 23.8 Const: General: comfortable, no acute distress and alert Orientation/consciousness: patient oriented x3 Resp: Effort & Inspection: normal respiratory effort GI: Inspection: No distended and Yes incision (surrounding ecchymosis, clean, open aspect inferiorly) Palpation (GI): Soft to palpation, Tenderness to palpation present (GI) (mild incisional), no guarding and not rigid Skin: General skin exam: no rashes or lesions noted Neuro: General: patient oriented x3 Extrem: General: Yes no clubbing, cyanosis or edema DS: Data Data Completed and Pending Completed studies during hospitalization [Text1]: 03/04/23 09:18 Surgical [PTH] Stat A. Colon, sigmoid, segmental resection: - Tubulovillous adenoma with focal high grade dysplasia; negative for carcinoma; margins negative. - 17 reactive appearing lymph nodes. B. EEA rings: Colonic tissue within normal limits. Procedures Excision of Sigmoid Colon, Open Approach (03/04/23) Discharge Plan Discharge Anticipated Discharge Date/Time: 03/09/23 11:38 Patient Disposition: Home, Self-Care Discharge Diagnosis: s/p anterior resection Referrals: Cait Fagan APRN [Primary Care Provider] - 1 Week Agus Lackey MD [Physician] - 1 Week Discharge Medications: New acetaminophen 500 mg tablet 1,000 mg PO Q6H PRN (Reason: pain) Qty: 30 0RF oxycodone 5 mg tablet 5 mg PO Q4H PRN (Reason: pain (scale score 7-10)) Qty: 26 0RF Rx Instructions: Partial Fill upon patient request. Continued sertraline 100 mg tablet 200 mg PO DAILY propranolol 10 mg tablet 10 mg PO BID famotidine 20 mg tablet 20 mg PO BEDTIME buspirone 30 mg tablet 30 mg PO BID cholecalciferol (vitamin D3) 125 mcg (5,000 unit) capsule 125 mcg PO DAILY Discontinued erythromycin 500 mg tablet 1,000 mg PO .3 times 1 Days Qty: 6 0RF Rx Instructions: Take 1000mg (2 500mg tablets) at 2pm, 3pm and 10pm on the day prior to your surgery. neomycin 500 mg tablet 1 g PO .3 times Qty: 6 0RF Rx Instructions: Take 1000mg (2 500mg tablets) at 2 PM, 3 PM, and 10 PM on the day prior to surgery. Discharge Orders: Discharge Order (Routine); Ordered 03/09/23 Ordered By: Tasia Silva Diet: Advance to usual diet Activity on Discharge: No heavy lifting Stand Alone Forms: Patient Portal Discharge page Activity Restrictions/Additional Instructions: If the incision area is tender, you may apply an ice pack for short intervals (No more than 20 minutes on, followed by at least 20 minutes off). Do not apply heat. Do not use creams, lotions, or topical antibiotics. These can cause infec tion or allergic reaction. Ok to shower. You have john closing your incision and these will be removed approximately 10-14 days after surgery. NO HEAVY LIFTING (>10lbs) or strenuous activity. Follow up in office. ([phone]) Call Your Doctor If: -Your temperature exceeds 101.5? F -You experience excessive pain or swelling -You have an unexpected reaction to medication -You have excessive bleeding -You experience continued vomiting/nausea -Your incision begins to separate -Your incision shows signs of infection such as increased redness, swelling, excessive pain, drainage (light blood or clear fluid is normal) or heat Care Plan Goals: Return to baseline health and resume normal activities following recovery period. Health Concerns: tubulovillous adenoma of rectosigmoid Plan of Treatment: s/p DANIS anterior resection pain control f/u in office Assessment: Doing well post op Discharge Date/Time: 03/09/23 12:07
== END 2023-03-09 12:07 | disposition home or self-care (01) | DRG 330 ==
LOC: HO.SSSA 10:48 → HO.S3 12:15
PROVIDERS: Nurse Practitioner; Physician Assistant Surgical; Admitting Provider Surgery; PCP Registered Nurse; Visit Provider Surgery
PROC: 0DTE0ZZ Resection of Large Intestine, Open Approach (ICD-10-PCS; principal; 2023-03-04 07:30)
DX: D12.5 Benign neoplasm of sigmoid colon (principal); L76.22 Postprocedural hemorrhage of skin and subcutaneous tissue following other procedure; Y83.8 Other surgical procedures as the cause of abnormal reaction of the patient, or of later complication, without mention of misadventure at the time of the procedure; K21.9 Gastro-esophageal reflux disease without esophagitis; Z87.891 Personal history of nicotine dependence; Z88.2 Allergy status to sulfonamides; Z79.899 Other long term (current) drug therapy
CPT/HCPCS: 36415; 80048; 81025; 85025; 86850; 86900; 86901; 88305; 88309; 88329; 93005; C1758; J0131; J1170; J1643; J1885; J2250; J2270; J2405; J2550; J2795; J3010

== ENCOUNTER → 2023-03-18 10:31 | Outpatient (BNVA) | payer MEDICARE, MEDICAID, SELFPAY | PROVIDERS: PCP Registered Nurse; Visit Provider Surgery | DX: Z48.815 Encounter for surgical aftercare following surgery on the digestive system (principal); Z90.49 Acquired absence of other specified parts of digestive tract | CPT/HCPCS: 99212 ==

== ENCOUNTER 2023-03-23 12:06 | Outpatient (REF) | payer MEDICARE, MEDICAID, SELFPAY ==
--- NOTE | ~2023-03-23 | XR_ITS ---
EXAMINATION: XR ABDOMEN COMPLETE CLINICAL INDICATION: PT STATES NAUSEA , GAS PAIN AND PRESSURE IN ABDOMEN S/P SURGERY March. COMPARISON: None available. TECHNIQUE: PA view of the chest and AP supine and upright views of the abdomen. FINDINGS: Chain john are present in the central pelvis. Nondilated bowel gas pattern. No intraperitoneal free air. No pathologic calcifications. Lungs are clear. Cardiac and mediastinal contours are normal. No acute osseous findings are identified in the chest, abdomen, and pelvis. XR/XR acute abdomen series IMPRESSION: No acute abdominal findings. No intraperitoneal free air.
[2023-03-23 12:32] LABS: MANUAL DIFF FLAG NO
[2023-03-23 13:55] LABS: Basophils Percent Auto 0.5 % (0-2); Eosinophils Percent Auto 0.5 % (0-4); Hematocrit 40.3 % (37.0-47.0); Hemoglobin 13.7 g/dl (12.0-16.0); Imm Gran Abs Auto 0.02 X10*3/uL (0.00-0.03); Imm Gran Pct Auto 0.3 % (0.0-0.4); Lymphocytes Absolute Auto 1.4 X10*3/uL (1.2-4.9); Mean Corpuscular Hemoglobin 29.3 pg (27.0-33.0); Mean Corpuscular Volume 86.1 fL (80.0-98.0); Mean Platelet Volume 10.2 fL (9.4-12.3); Monocytes Absolute Auto 0.6 X10*3/uL (0.1-1.2); Monocytes Percent Auto 8.4 % (2-11); Neutrophils Absolute Auto 4.5 x10*3/uL (2.0-8.3); Neutrophils Percent Auto 69.3 % (45-73); Platelet Count 377 X10*3/uL (160-400); Red Blood Count 4.68 X10*6/uL (4.20-5.50); Red Cell Distribution Width 13.6 % (11.0-16.0); White Blood Count 6.5 X10*3/uL (4.8-10.8)
[2023-03-23 14:25] LABS: Alanine Aminotransferase 7 U/L (0-31); Albumin Level 4.2 g/dL (3.5-5.0); Alkaline Phosphatase 83 U/L (39-117); Anion Gap 15 (12-20); Aspartate Amino Transferase 12 U/L (5-31); Bilirubin Direct 0.2 mg/dL (0.0-0.5); Bilirubin Total 0.6 mg/dL (0.0-1.0); Blood Urea Nitrogen 10 mg/dL (9-16); Calcium 9.4 mg/dL (8.4-10.2); Carbon Dioxide 26 mmol/L (22-29); Chloride 103 mmol/L (96-108); Estimated Glomerular Filt Rate > 60; Glucose Random 95 mg/dL (60-115); Lipase 67 U/L (8-78); Potassium 4.5 mmol/L (3.3-5.1); Sodium 139 mmol/L (135-145); Total Protein 7.3 g/dL (6.5-8.0)
[2023-03-26 17:08] LABS: Immunoglobulin A 320 mg/dL (47-310)
[2023-03-27 09:54] LABS: Gliadin Deamidated IgA Ab 9.1 U/mL; Gliadin Deamidated IgG Ab <1.0 U/mL
[2023-03-30 13:49] LABS: Transglutaminase Ab IgG <1.0 U/mL; Transglutaminase IgA <1.0 U/mL
[2023-03-30 14:38] LABS: Endomysial IgA Antibody Negative (Negative)
== END 2023-03-23 12:07 | disposition home or self-care (01) ==
LOC: HO.XRAY 12:06
PROVIDERS: PCP Registered Nurse; Visit Provider Internal Medicine
DX: R19.7 Diarrhea, unspecified (principal); R10.9 Unspecified abdominal pain
CPT/HCPCS: 36415; 74022; 80053; 82248; 82784; 83690; 85025; 86231; 86258; 86364

== ENCOUNTER → 2023-04-22 09:47 | Outpatient (BNVA) | payer MEDICARE, MEDICAID, SELFPAY | PROVIDERS: PCP Registered Nurse; Visit Provider Surgery | DX: Z09 Encounter for follow-up examination after completed treatment for conditions other than malignant neoplasm (principal); Z90.49 Acquired absence of other specified parts of digestive tract | CPT/HCPCS: 99212 ==

== ENCOUNTER 2023-09-22 09:31 | Day surgery (SDC) | payer MEDICARE, MEDICAID, SELFPAY ==
[2023-09-20 11:27] VITALS: BMI 20.4
--- NOTE | 2023-09-21 09:42 | HO.ANESPROP2 ---
Documented by User: Sydnee Clements NP 09/21/23 09:43 HPI - Anesthesia Eval Consult details Narrative: 42yo F for Upper Endoscopy s/p colo resect 03/2023 with GA-ETT 7 PMFSH Active Problems All Active Problems S/P colon resection (Acute) Past Medical History Medical History Anxiety GERD (gastroesophageal reflux disease) History of electroconvulsive therapy Depression Family History Family history of problems with anesthesia: No Surgical History Surgical History History of colon resection Hx of colonoscopy H/O tooth extraction History of Problems with Anesthesia: No Social History Household Members: Friend(s) Household Members Other:: roomate Housing: Apartment Are you a primary director long term care to a significant other at home: No Do you presently have visiting nurse or other home services: No Patient Tobacco Use Status: Former Tobacco user Quit Date: 8 months Tobacco use type: Smokeless Tobacco e-Cigarette/Vaping Use: Currently Using Substance Use Type: Marijuana Are you DNR?: No Advance Directives: No Advance Directives Information Provided: Yes Patient : No service: No Current occupational status: employed Meds Allergies Allergy/AdvReac Type Severity Reaction Status Date / Time Sulfa (Sulfonamide Allergy Mild NAUSEA & Verified 04/22/23 09:59 Antibiotics) VOMITING [Sulfa (Sulfonamides)] venlafaxine [From Effexor] Allergy Mild RASH Verified 04/22/23 09:59 sulfamethoxazole AdvReac Mild NAUSEA Verified 04/22/23 09:59 [From Bactrim] trimethoprim [From Bactrim] AdvReac Mild NAUSEA Verified 04/22/23 09:59 Home Medications Medication Instructions Recorded Confirmed Last Taken Type buspirone 30 mg tablet 30 mg PO BID 02/12/23 02/24/23 03/04/23 05:00 History cholecalciferol (vitamin D3) 125 125 mcg PO DAILY 02/12/23 02/24/23 03/03/23 History mcg (5,000 unit) capsule propranolol 10 mg tablet 10 mg PO BID 02/12/23 02/24/23 03/04/23 05:00 History sertraline 100 mg tablet 200 mg PO DAILY 02/12/23 02/24/23 03/04/23 05:00 History mirtazapine 7.5 mg tablet 7.5 mg PO BEDTIME 09/22/23 09/22/23 Unknown History omeprazole 20 mg capsule,delayed 20 mg PO DAILY 09/22/23 09/22/23 09/21/23 History release Exam Height,Weight and Vital Signs: Height 5 ft 1 in Weight 48.988 kg Pertinent Lab Results Pertinent Lab Results: Laboratory Tests 03/23/23 12:31 WBC 6.5 Hgb 13.7 Hct 40.3 Plt Count 377 D Sodium 139 Potassium 4.5 Chloride 103 Carbon Dioxide 26 BUN 10 Creatinine 0.86 Narrative Narrative: EKG 03/2023 Vent. Rate : 061 BPM Atrial Rate : 061 BPM P-R Int : 180 ms QRS Dur : 084 ms QT Int : 440 ms P-R-T Axes : 068 065 032 degrees QTc Int : 442 ms Normal sinus rhythm Normal ECG When compared with ECG of 22-MAR-2011 19:24, No significant change was found Assessment and Plan Assessment Anesthesia Assessment: Chart Reviewed Final Anesthetic Review Family History of Problems with Anesthesia: No History of Problems with Anesthesia: No Documented by User: Merna Stephens MD 09/22/23 11:07 PMFSH Active Problems All Active Problems S/P colon resection (Acute) Past Medical History Medical History Anxiety GERD (gastroesophageal reflux disease) History of electroconvulsive therapy Depression Surgical History Surgical History History of colon resection Hx of colonoscopy H/O tooth extraction Social History Household Members: Friend(s) Household Members Other:: roomate Housing: Apartment Are you a primary director long term care to a significant other at home: No Do you presently have visiting nurse or other home services: No Patient Tobacco Use Status: Former Tobacco user Quit Date: 8 months Tobacco use type: Smokeless Tobacco e-Cigarette/Vaping Use: Currently Using Substance Use Type: Marijuana Are you DNR?: No Advance Directives: No Advance Directives Information Provided: Yes Patient : No service: No Current occupational status: employed Meds Allergies Allergy/AdvReac Type Severity Reaction Status Date / Time Sulfa (Sulfonamide Allergy Mild NAUSEA & Verified 04/22/23 09:59 Antibiotics) VOMITING [Sulfa (Sulfonamides)] venlafaxine [From Effexor] Allergy Mild RASH Verified 04/22/23 09:59 sulfamethoxazole AdvReac Mild NAUSEA Verified 04/22/23 09:59 [From Bactrim] trimethoprim [From Bactrim] AdvReac Mild NAUSEA Verified 04/22/23 09:59 Home Medications Medication Instructions Recorded Confirmed Last Taken Type buspirone 30 mg tablet 30 mg PO BID 02/12/23 02/24/23 03/04/23 05:00 History cholecalciferol (vitamin D3) 125 125 mcg PO DAILY 02/12/23 02/24/23 03/03/23 History mcg (5,000 unit) capsule propranolol 10 mg tablet 10 mg PO BID 02/12/23 02/24/23 03/04/23 05:00 History sertraline 100 mg tablet 200 mg PO DAILY 02/12/23 02/24/23 03/04/23 05:00 History mirtazapine 7.5 mg tablet 7.5 mg PO BEDTIME 09/22/23 09/22/23 Unknown History omeprazole 20 mg capsule,delayed 20 mg PO DAILY 09/22/23 09/22/23 09/21/23 History release Exam Airway Mallampati Class: II TM Dist: >3cm Neck ROM: Full Heart: rrr Lungs: cta Assessment and Plan Assessment Anesthesia Assessment: Anesthesia Plan Discussed and Smoking Cess. Discussed (marihuana vapes 20 times a day ) Final Anesthetic Review NPO: Yes ASA Class: III Final Preanesthetic Review: No Changes in Pt Med Stat, Meds/Allgs Chart Reviewed, Consent Obtained/Reviewed and Anes Risks/Benef Reviewed Patient Risk: Intermediate Procedure Risk: Intermediate Anesthetic Plan Anesthetic Plan: MAC: Disposition: Standard PACU
[2023-09-22 09:35] VITALS: BP 104/69; PULSE 67; RESP 20; TEMP 36.6; O2SAT 98
[2023-09-22 09:37] VITALS: BMI 21.5
[2023-09-22 09:56] LABS: UPreg QC Valid YES; Urine Pregnancy NEGATIVE (NEGATIVE)
[2023-09-22] MEDS: Lactated Ringers 1,000 ML 100 ML IVCONT (10:05)
[2023-09-22] MEDS: Albuterol Sulfate 2.5 MG, Albuterol/Iprat 2.5/0.5MG 3 ML 3 ML INHALE (10:39)
[2023-09-22 10:40] VITALS: PULSE 68; RESP 16; O2SAT 99
[2023-09-22 11:40] VITALS: BP 95/57; PULSE 79; RESP 15; TEMP 36.4; O2SAT 99
--- NOTE | 2023-09-22 11:40 | P.BOP_ITS ---
Brief Operative Note Date of Service: 09/22/23 Pre-op diagnosis: Nausea Post-op diagnosis: other (Minimal hiatal hernia) Procedure: EGD with biopsies Surgeon: Ashok Travis MD Anesthesia: MAC Was an Glue Jointer Feeder used for this Procedure?: No Estimated blood loss (mL): 2.0 Pathology: other (A. Descending duodenum B. Gastric antrum) Condition: stable Disposition: PACU
[2023-09-22 11:55] VITALS: BP 116/74; PULSE 85; RESP 16; TEMP 36.4; O2SAT 99
--- NOTE | 2023-09-22 12:08 | OP_ITS ---
DATE OF SERVICE: 09/22/2023 SURGEON: Ashok Travis MD INDICATIONS: The patient presents for evaluation of nausea, anorexia, and previous diarrhea. Full consent has been obtained from her for this, including risks of bleeding and perforation. PREOPERATIVE DIAGNOSIS: Nausea, anorexia, and previous diarrhea. POSTOPERATIVE DIAGNOSIS: Nausea, anorexia, and previous diarrhea, rule out celiac disease, rule out Helicobacter pylori, minimal hiatal hernia. PROCEDURE PERFORMED: Esophagogastroduodenoscopy with biopsies. ESTIMATED BLOOD LOSS: COMPLICATIONS: ANESTHESIA: Medication used: Monitored anesthesia care. ASSISTANTS: SPECIMENS: DESCRIPTION OF PROCEDURE: The patient was placed in the left lateral decubitus position. The Olympus video gastroscope was passed in the posterior oropharynx and upper esophagus under direct vision. The scope was passed slowly to the distal esophagus. The gastroesophageal junction appeared normal at 35 cm. There was no sign of any esophagitis nor Parekh's esophagus. The scope entered the stomach. There was a minimal hiatal hernia. The scope was advanced to the pylorus and the duodenum was cannulated to the descending portion. The duodenum including the bulb appeared normal without mass or ulceration. Biopsies were obtained from the 2nd and 3rd portions of duodenum. The scope was withdrawn back in the stomach. The gastric antrum and body appeared normal with good peristalsis. Biopsies were obtained from the gastric antrum. The scope was retroflexed, visualizing the proximal stomach carefully, which appeared normal, without any sign of mass or ulceration. The scope was straightened and withdrawn back to the esophagus. The esophageal mucosa appeared normal. The scope was withdrawn from the patient. She tolerated the procedure well and was returned to the recovery area in stable condition. IMPRESSION: Minimal hiatal hernia, otherwise normal upper endoscopy. PLAN: The results of the biopsies will be checked. She reports that she is presently having several episodes of nausea each day, which only last for 1 or 2 minutes and then resolve spontaneously. She has no other associated symptoms such as vomiting. She describes some anorexia, although her weight is higher today than it was back in July. She does use marijuana regularly and that may be contributing to some of her nausea. She had been on omeprazole without any improvement and I have therefore advised her to stop that. I will plan to see her in the spring for a followup colonoscopy. Her previous issues with postoperative problems after the sigmoid resection have basically resolved and her bowel movements are much more regular and improved. MD KIRSTEN Arnold/ALVARO / [id number]
== END 2023-09-22 12:56 | disposition home or self-care (01) ==
PROVIDERS: Nurse Practitioner; PCP Registered Nurse; Visit Provider Internal Medicine
PROC: 0DJ08ZZ Inspection of Upper Intestinal Tract, Via Natural or Artificial Opening Endoscopic (ICD-10-PCS; CPT 43235; principal; 2023-09-22 10:30)
DX: R63.0 Anorexia (principal); Z68.20 Body mass index [BMI] 20.0-20.9, adult; R11.0 Nausea; R19.7 Diarrhea, unspecified; Z86.010 Personal history of colon polyps; Z90.49 Acquired absence of other specified parts of digestive tract; K29.50 Unspecified chronic gastritis without bleeding; K44.9 Diaphragmatic hernia without obstruction or gangrene; K21.9 Gastro-esophageal reflux disease without esophagitis; F41.8 Other specified anxiety disorders; Z79.899 Other long term (current) drug therapy; Z88.2 Allergy status to sulfonamides; Z88.8 Allergy status to other drugs, medicaments and biological substances; F12.90 Cannabis use, unspecified, uncomplicated
CPT/HCPCS: 43239; 81025; 88305; 88342; 94640; J2704; J3010

== ENCOUNTER 2024-05-22 09:35 | Day surgery (SDC) | payer MEDICARE, MEDICAID, SELFPAY ==
[2024-05-18 15:21] VITALS: BMI 22.5
[2024-05-22 09:48] VITALS: BMI 25.3
[2024-05-22 10:05] LABS: UPreg QC Valid YES; Urine Pregnancy NEGATIVE (NEGATIVE)
[2024-05-22 10:10] VITALS: BP 128/77; PULSE 76; RESP 16; TEMP 36.9; O2SAT 96
[2024-05-22] MEDS: Lactated Ringers 1,000 ML 50 ML IVCONT (10:13)
--- NOTE | 2024-05-22 10:21 | HO.ANESPROP2 ---
HPI - Anesthesia Eval Consult details Narrative: for colonoscopy PMFSH Active Problems Active Problems: All Active Problems S/P colon resection (Acute) Past Medical History Medical History Anxiety GERD (gastroesophageal reflux disease) History of electroconvulsive therapy Depression Family History Family history of problems with anesthesia: No Surgical History Surgical History Hx of esophagogastroduodenoscopy (~09/2023) History of colon resection Hx of colonoscopy H/O tooth extraction History of Problems with Anesthesia: No Social History Social History Household Members: Friend(s) Household Members Other:: roomate Housing: Apartment Are you a primary health care manager to a significant other at home: No Do you presently have visiting nurse or other home services: No Patient Tobacco Use Status: Current everyday Tobacco user Tobacco use type: Smokeless Tobacco e-Cigarette/Vaping Use: Currently Using Use of substances other than those prescribed or required for medical reasons: Yes Substance Use Type: Marijuana Are you DNR?: No Advance Directives: No Advance Directives Information Provided: Yes service: No Current occupational status: employed Meds Allergies Allergy/AdvReac Type Severity Reaction Status Date / Time Sulfa (Sulfonamide Allergy Mild NAUSEA & Verified 04/22/23 09:59 Antibiotics) VOMITING [Sulfa (Sulfonamides)] venlafaxine [From Effexor] Allergy Mild RASH Verified 04/22/23 09:59 sulfamethoxazole AdvReac Mild NAUSEA Verified 04/22/23 09:59 [From Bactrim] trimethoprim [From Bactrim] AdvReac Mild NAUSEA Verified 04/22/23 09:59 Active Medications: Current Medications Lactated Ringer's (Lr) 1,000 mls @ 50 mls/hr IVCONT .Q20H MARIA INES Last Admin: 05/22/24 10:13 Dose: 50 mls/hr Sodium Biphosphate/Sodium Phosphate (Sodium Phosphate,[place]-Dibasic 133 Ml Enema) 133 ml MT ONCE PRN PRN Reason: Poor Colonoscopy Prep Results Home Medications ?Medication ?Instructions ?Recorded ?Confirmed ?Last Taken ?Type buspirone 30 mg tablet 30 mg PO BID 02/12/23 02/24/23 03/04/23 05:00 History cholecalciferol (vitamin D3) 125 125 mcg PO DAILY 02/12/23 02/24/23 03/03/23 History mcg (5,000 unit) capsule propranolol 10 mg tablet 10 mg PO BID 02/12/23 02/24/23 03/04/23 05:00 History sertraline 100 mg tablet 200 mg PO DAILY 02/12/23 02/24/23 03/04/23 05:00 History mirtazapine 7.5 mg tablet 7.5 mg PO BEDTIME 09/22/23 09/22/23 Unknown History omeprazole 20 mg capsule,delayed 20 mg PO DAILY 09/22/23 09/22/23 09/21/23 History release Exam Height,Weight and Vital Signs: Height 5 ft 1 in Weight 60.838 kg Last Vital Signs Temp 98.4 F 05/22/24 10:10 Pulse 76 05/22/24 10:10 Resp 16 05/22/24 10:10 BP 128/77 05/22/24 10:10 Pulse Ox 96 05/22/24 10:10 O2 Del Method Room Air 05/22/24 10:10 Pertinent Lab Results Pertinent Lab Results: Laboratory Tests 05/22/24 09:49 Urine Test NEGATIVE Airway Mallampati Class: II TM Dist: >3cm Neck ROM: Full Heart: rrr Lungs: cta Assessment and Plan Assessment Anesthesia Assessment: Anesthesia Plan Discussed Final Anesthetic Review Family History of Problems with Anesthesia: No History of Problems with Anesthesia: No NPO: Yes ASA Class: II Final Preanesthetic Review: No Changes in Pt Med Stat, Meds/Allgs Chart Reviewed, Consent Obtained/Reviewed and Anes Risks/Benef Reviewed Patient Risk: Low Procedure Risk: Low Anesthetic Plan Anesthetic Plan: MAC: Disposition: Standard PACU
--- NOTE | 2024-05-22 10:46 | PC.NURSE ---
24hr update documented on paper
[2024-05-22 11:18] VITALS: BP 100/64; PULSE 67; RESP 18; TEMP 36.4; O2SAT 99
--- NOTE | 2024-05-22 11:23 | PM.OP ---
Brief Operative Note Date of Service: 05/22/24 Pre-op diagnosis: Screening Post-op diagnosis: other (Normal anastomosis) Procedure: Colonoscopy to the cecum and TI Surgeon: Ashok Travis MD Anesthesia: MAC Was an Newspaper Stuffer used for this Procedure?: No Estimated blood loss (mL): 0 Pathology: none sent Condition: stable Disposition: PACU
[2024-05-22 11:34] VITALS: BP 101/68; PULSE 76; RESP 17; TEMP 36.2; O2SAT 98
--- NOTE | 2024-05-23 10:26 | OP_ITS ---
DATE OF SERVICE: 05/22/2024 SURGEON: Ashok Travis MD INDICATIONS: The patient presents for followup of personal history of villous adenomas and tubular adenoma of the colon. Full consent has been obtained from her for this, including risks of bleeding and perforation. PREOPERATIVE DIAGNOSIS: POSTOPERATIVE DIAGNOSIS: PROCEDURE PERFORMED: Colonoscopy to cecum and terminal ileum. ESTIMATED BLOOD LOSS: COMPLICATIONS: ANESTHESIA: Monitored anesthesia care. ASSISTANTS: SPECIMENS: PREOPERATIVE DIAGNOSES: Colorectal cancer screening, personal history of villous adenoma of the colon, and tubular adenomas of the colon. POSTOPERATIVE DIAGNOSES: Colorectal cancer screening, personal history of villous adenoma of the colon, tubular adenomas of the colon, normal anastomosis, and minimal internal hemorrhoids. DESCRIPTION OF PROCEDURE: The patient was placed in the left lateral decubitus position. The digital rectal exam revealed no abnormalities. The Olympus video pediatric colonoscope was then entered into the rectum and advanced easily to the cecum. Once in the cecum, I did identify normal-appearing cecal pouch with appendiceal orifice and a normal-appearing ileocecal valve. The terminal ileum was cannulated and appeared normal. The scope was withdrawn back in the colon. The entire cecum and ileocecal valve appeared normal. The scope was slowly withdrawn assessing all mucosal surfaces carefully. Preparation was excellent. I did not visualize any sign of polyps, colitis, nor angiodysplasias. The anastomosis appeared normal at approximately 10 cm. There was no sign of any inflammation nor stricture. In the rectum, scope was retroflexed, visualizing small internal hemorrhoids, but no other pathology. The rectal mucosa appeared normal. The scope was straightened and withdrawn from the patient. She tolerated the procedure well and was returned to the recovery area in stable condition. IMPRESSION: 1. Normal anastomosis. 2. Small internal hemorrhoids. PLAN: Given her previous history, I would recommend a repeat colonoscopy in 2 years for further screening and surveillance. She will, otherwise, see me on a p.r.n. basis. MD KIRSTEN Arnold/ALVARO / [id number]
== END 2024-05-22 12:28 | disposition home or self-care (01) ==
PROVIDERS: Anesthesiology; Visit Provider Internal Medicine
PROC: 0DJD8ZZ Inspection of Lower Intestinal Tract, Via Natural or Artificial Opening Endoscopic (ICD-10-PCS; CPT 45378; principal; 2024-05-22 10:30)
DX: Z12.11 Encounter for screening for malignant neoplasm of colon (principal); Z86.010 Personal history of colon polyps; Z98.0 Intestinal bypass and anastomosis status; Z90.49 Acquired absence of other specified parts of digestive tract; K64.8 Other hemorrhoids; K21.9 Gastro-esophageal reflux disease without esophagitis; K44.9 Diaphragmatic hernia without obstruction or gangrene; F41.8 Other specified anxiety disorders; Z79.899 Other long term (current) drug therapy; Z88.2 Allergy status to sulfonamides; Z88.8 Allergy status to other drugs, medicaments and biological substances; F17.290 Nicotine dependence, other tobacco product, uncomplicated
CPT/HCPCS: G0105; 81025; J2704

== ENCOUNTER 2024-08-11 08:43 | Outpatient (AMB) | payer MEDICARE, MEDICAID, SELFPAY ==
--- NOTE | 2024-08-11 08:49 | AM.OFFWIN_ITS ---
Intake Vital Signs 08/11/24 08:53 Height 5 ft 2 in Weight 142 lb 4 oz BMI 26.0 BP 112/68 Blood Pressure Location Lt brachial Position Sitting Respiration 13 Pulse 77 Pulse Source Pulse Oximeter Temp 97.4 F Temp Source Oral Pulse Oximetry (%) 97 Oxygen Delivery Method Simple Mask Intake Visit Reasons: est// possible thrush/throat pain Intake Note: Patient complaining of tongue hurts and sore throat x 3 days. Patient Tobacco Use Status: Current everyday Tobacco user Allergies Sulfa (Sulfonamide Antibiotics) [Sulfa (Sulfonamides)] Allergy (Mild, Verified 08/11/24 09:32) NAUSEA & VOMITING venlafaxine [From Effexor] Allergy (Mild, Verified 08/11/24 09:32) RASH sulfamethoxazole [From Bactrim] Adverse Reaction (Mild, Verified 08/11/24 09:32) NAUSEA trimethoprim [From Bactrim] Adverse Reaction (Mild, Verified 08/11/24 09:32) NAUSEA Medication List - Last Reconciled 08/11/24 by Aliya Desai, GUARD SERGEANT- mirtazapine 15 mg PO BEDTIME sertraline 200 mg PO DAILY Do you need a note to return to daycare/school/sports/work: No HPI HPI Comments History of Present Illness Details 43 y/o F i think i have thrush tongue hurts so bad, started 2 days ago sore throat mild started this aM oral thrush in the past, last time about 15 years ago does not take ICS. Denies HIV. She does vape. No at home treatment. Exam Awake alert no acute distress Mucous membranes dry, pharynx normal, tongue with mild glossitis, no lesions, swollen taste buds Plan: Strep negative. Exam not c/w strep. Advised to try sour candies like war head/lemon drop, etc. No menthol. Rinse/gargle spit using Mylanta OTC. OK to use Biotin mouthwash if the afore mentioned does not work Liberally hydrate. Avoid spicy, hot, acidic foods/drinks until better Recommend fu if no improvement See front worker about est care w/ PCP here coming from [facility] This note is constructed using voice recognition software. While every effort has been made to ensure accuracy in replenishment analyst, still errors may have been included Sometimes, these errors may affect the content or meaning of the given sentence . Total time spent caring for the patient today was 30 minutes. This includes time spent before the visit reviewing the chart, time spent during the visit, and time spent after the visit on documentation [facility] Medical History Anxiety GERD (gastroesophageal reflux disease) History of electroconvulsive therapy Depression Surgical History Hx of esophagogastroduodenoscopy (~09/2023) History of colon resection Hx of colonoscopy H/O tooth extraction Social History Household Members: Friend(s) Household Members Other:: roomate Housing: Apartment Are you a primary manager respiratory care to a significant other at home: No Do you presently have visiting nurse or other home services: No Patient Tobacco Use Status: Current everyday Tobacco user Tobacco use type: Smokeless Tobacco e-Cigarette/Vaping Use: Currently Using Substance Use Type: Marijuana service: No Current occupational status: employed Physical Exam Vital Signs: Last Vital Signs Temp 97.4 F 08/11/24 08:53 Pulse 77 08/11/24 08:53 Resp 13 08/11/24 08:53 BP 112/68 08/11/24 08:53 Pulse Ox 97 08/11/24 08:53 Oxygen Delivery Method Simple Mask 08/11/24 08:53 BMI result Body Mass Index 26.0 Results AMB Rapid Strep AMB Rapid Strep Negative Last Edit by Ora Tucker MA on 08/11/24 10:51 Results Reviewed Results Reviewed: Laboratory Last Values Strep Scn [facility] Negative 08/11/24 10:50 Assessment & Plan Assessment & Plan (1) Transient lingual papillitis: Code(s): 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 (2) Encounter for screening, unspecified: Code(s): Z13.9 - Encounter for screening, unspecified Plan: . 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
[2024-08-11 08:53] VITALS: BP 112/68; PULSE 77; RESP 13; TEMP 36.3; O2SAT 97; BMI 26.0
== END 2024-08-11 09:42 | disposition home or self-care (01) ==
PROVIDERS: Visit Provider Nurse Practitioner Family
DX: K14.0 Glossitis (principal); Z13.9 Encounter for screening, unspecified

== ENCOUNTER → 2024-08-11 08:43 | Outpatient (BNVA) | payer MEDICARE, MEDICAID, SELFPAY | PROVIDERS: Visit Provider Nurse Practitioner Family | DX: K14.0 Glossitis (principal) | CPT/HCPCS: 87880; 99212 ==

== ENCOUNTER 2024-09-01 09:07 | Outpatient (AMB) | payer MEDICARE, MEDICAID, SELFPAY ==
--- NOTE | 2024-09-01 09:26 | A.OFFPC_ITS ---
Vital Signs 09/01/24 09:34 Height 5 ft 2 in Weight 143 lb 2 oz BMI 26.2 BP 102/68 Blood Pressure Location Lt brachial Position Sitting Respiration 12 Pulse 73 Pulse Source Pulse Oximeter Pulse Oximetry (%) 97 Oxygen Delivery Method Room Air Intake Visit Reasons: make est care appt/coming from Dr Man Intake Note: to establish care Scientific Laboratory Supervisor Required: No Allergies Sulfa (Sulfonamide Antibiotics) [Sulfa (Sulfonamides)] Allergy (Mild, Verified 09/01/24 09:44) NAUSEA & VOMITING venlafaxine [From Effexor] Allergy (Mild, Verified 09/01/24 09:44) RASH sulfamethoxazole [From Bactrim] Adverse Reaction (Mild, Verified 09/01/24 09:44) NAUSEA trimethoprim [From Bactrim] Adverse Reaction (Mild, Verified 09/01/24 09:44) NAUSEA Medication List - Last Reconciled 09/01/24 by Aliya Desai, [facility]- mirtazapine 15 mg PO BEDTIME sertraline 200 mg PO DAILY Tobacco use date assessed: 09/01/24 Dental Screening Dental Screen Date: 09/01/24 Did you have a dental visit in the last 12 months?: No Did you have a dental problem in the last 6 months where you did not have access to dental care?: No Was dental information given to patient?: Patient declined HPI HPI Comments History of Present Illness Details 43-year-old female with generalized anxi ety disorder, major depressive disorder, GERD, current marijuana user, vit d def, folate acid def w/o anemia Status post electroconvulsive therapy, 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 Colon Dr Travis 2022, repeat 05/22/24 repeat colonoscopy in 2 years (2025) ? Mammo has never had one. Afraid of pain. ? DEXA n/a still getting periods ? PAP > 3 years ago. Last one done at PCP. ? Tdap 09/01/24, declined flu Specialists: General surgery GI Counselor & Psych Here today to est care. Coming from Dr Man. No PCP records available. Constant, chronic GI sx. Nonbloody Diarrhea as soon as she eats. Better than it was before surgery. Sometimes does not eat all day and is still having diarrhea. Worse over the last month. Other times can feel constipated. Wonders if this is something like IBS, has never been dx w/ this. Has gained weight. She is on mirtazipine. Gets sick w/ her menses. Bad headache, feels motion sick, feels like going to throw up. Denies heavy bleeding. This started 1 year ago. Previous throat/mouth complaint resolved at this time Exam Awake alert NAD Scleras nonicteric bilat MM dry RRR LS CTAB Abd soft, nontender, normoactive bs x 4 Mood and affect appropriate Plan Mammo ordered Refer to MERCHANDISE MANAGER for dysmenorrhea Rec f/u with Dr Travis for diarrhea. I sent referral but this is not needed. Ok to call office Wednesday to schedule appt. Tdap today Check routine screening labs today RTO Dec for CPE, sooner PRN *labs wnl except low vit d and folate. will review w/ her at CPE next month. This note is constructed using voice recognition software. While every effort has been made to ensure accuracy in capsule inspector, still errors may have been included Sometimes, these errors may affect the content or meaning of the given sentence . Total time spent caring for the patient today was 40 minutes. This includes time spent before the visit reviewing the chart, time spent during the visit, and time spent after the visit on documentation PENDING SALE TO [facility] Medical History Anxiety GERD (gastroesophageal reflux disease) History of electroconvulsive therapy Depression Surgical History Hx of esophagogastroduodenoscopy (~09/2023) History of colon resection Hx of colonoscopy H/O tooth extraction Family History (Updated 09/01/24 @ 09:34 by Ora Tucker MA) Mother Mental health disorder Sister Mental health disorder Father Substance abuse Diabetes Cardiovascular disease Hypertensive pulmonary arterial disease Brother Substance abuse Maternal Grandmother Cancer Social History (Updated 09/01/24 @ 09:32 by Ora Tucker MA) Household Members: Friend(s) Household Members Other:: roomate Housing: Apartment Are you a primary career consultant to a significant other at home: No Do you presently have visiting nurse or other home services: No Alcohol intake: never Patient Tobacco Use Status: Current everyday Tobacco user Tobacco use type: Smokeless Tobacco e-Cigarette/Vaping Use: Currently Using Substance Use Type: Marijuana service: No Current occupational status: employed Cognitive needs: No Hearing needs: No Vision needs: No Questionnaire PHQ-9 Over the last 2 weeks, how often have you been bothered by any of the following problems? 1. Little interest or pleasure in doing things: nearly every day 2. Feeling down, depressed, or hopeless: nearly every day 3. Trouble falling or staying asleep, or sleeping too much: nearly every day 4. Feeling tired or having little energy: nearly every day 5. Poor appetite or overeating: nearly every day 6. Feeling bad about yourself - or that you are a failure or have let yourself or your family down: more than half the days 7. Trouble concentrating on things, such as reading the newspaper or watching television: more than half the days 8. Moving or speaking so slowly that other people could have noticed. Or the opposite - being so fidgety or restless that you have been moving around a lot more than usual: more than half the days 9. Thoughts that you would be better off or of hurting yourself in some way: several days Total score: 22 Depression Screening Interpretation: Positive Depression Screening Follow-up: Existing condition and In treatment Depression Screening Done: Yes 72724 - PHQ-9 Billing: Yes Source: Developed by Drs. Ashok De Guzman, Candy Valentino, Otoniel Larsen and colleagues, with an educational garrick from [employer]. Thrive Questionnaire Date Thrive assessed: 09/01/24 I am a: Patient What is your living situation today?: I have a steady place to live Within the past 12 months, did the food you bought not last and you didn't have the money to get more?: Never true Within the past 12 months, did you worry whether your food would run out before you got money to buy more?: Never true Do you have trouble paying for medicines?: No Do you have trouble getting transportation to medical appointments?: No Do you have trouble paying your heating and electricity bill?: No Do you have trouble taking care of your child, family member or friend?: No Do you have trouble with day-to-day activities such as bathing, preparing meals, shopping, managing finances, etc.?: Yes Are you currently unemployed and looking for a job?: No Are you interested in more education?: No Please select the resources that you would like help with: None Currently or been in a relationship where the following occur: No concerns reported THRIVE Score: 0 AUDIT C Alcohol Use Questionnaire (AUDIT-C) 1. How often do you have a drink containing alcohol?: Never 3. How often do you have six or more drinks on one occasion?: Never Total Score: 0 Score Reviewed/Action Taken: Yes KENZIE-7 AMB Questionnaire KENZIE-7 Date KENZIE - 7 assessed: 09/01/24 Feeling nervous, anxious, or on edge: 3 = Nearly every day Not being able to stop or control worryin = Nearly every day Worrying too much about different things: 3 = Nearly every day Trouble relaxin = Nearly every day Being so restless that it is hard to sit still: 2 = More than half the days Becoming easily annoyed or irritable: 2 = More than half the days Feeling afraid as if something awful might happen: 3 = Nearly every day Total KENZIE-7 score (0-4 normal; 5-9 mild; 10-14 moderate; 15-21 severe): 19 Source: Developed by Drs. Ashok De Guzman, Candy Valentino, Otoniel Larsen and colleagues, with an educational garrick from [employer]. KENZIE-7 Assessment Billing KENZIE-7 Assessment Tool: KENZIE-7 Assessment 14242 Physical exam (Primary Care) Vital Signs: Last Vital Signs Pulse 73 09/01/24 09:34 Resp 12 09/01/24 09:34 BP 102/68 09/01/24 09:34 Pulse Ox 97 09/01/24 09:34 Oxygen Delivery Method Room Air 09/01/24 09:34 BMI result Body Mass Index 26.2 Tobacco/Smoking Status: Tobacco use Status Tobacco use date assessed 09/01/24 09/01/24 09:36 Patient Tobacco Use Status Current everyday Tobacco 09/01/24 09:32 Tobacco use type Smokeless Tobacco 09/01/24 09:32 e-Cigarette/Vaping Use Currently Using 09/01/24 09:32 PHQ-9: PHQ-9 Score PHQ-9: Total score 22 09/01/24 12:16 Depression Screening Interpretation: Positive Depression Screening Follow-up: Existing condition and In treatment Thrive Assessment: Date of Thrive Assessment Date Thrive assessed 09/01/24 09/01/24 09:29 Currently or been in a relationship where the following occur: No concerns reported Immunizations Boostrix Tdap 2.5 Lf unit-8 mcg-5 Lf/0.5 mL intramuscular syringe Performing Provider: SIMONA Zazueta Performing Location: [facility] Family Medicine Administered by: Caro Cervantes RN on 09/01/24 10:10 Dose Route Admin Location Dispensed Lot Number Expiration Date [facility] Hull Inspector 0.5 mL IM Left Deltoid 0.5 mL [id number] 09/16/26 [id number] [employer] VIS Given Date VIS Provided VIS Publication Date 09/01/24 Single Vaccine 21 Eligibility Eligibility Date Funding Source Not [facility] Eligible 09/01/24 Private Results Reviewed Results Reviewed: RUN: 09/01/24 1410 PAGE 1 [facility] [address] [place] [id number] Medical Art Therapist: Alexei Brian M.D. Specimen Inquiry Name: SandromervinSaritha pool Age/Sex: 43/F : 1980 Unit#: [id number] Attend Dr: Aliya Desai Re09/01/24 Status: REG REF Location: [id number] Disch: SPEC : [id number] FE: 09/01/24 STATUS: COMP REQ : [id number] RECD: 09/01/[address]: Aliya Desai COMP: 09/01/24-123 ENTERED: 09/01/24-[address] [facility] [address]: ORDERED: CMP, IRON PROF, Lipid Panel, Vitamin D 25-OH, TSH Rflx Test Result Flag Reference Sodium 139 135-145 mmol/L Potassium 3.7 3.3-5.1 mmol/L CL 103 96-108 mmol/L CO2 28 22-29 mmol/L Gap 12 12-20 BUN 8 L 9-16 mg/dL Creat 0.83 0.5-1.4 mg/dL EGFR > 60 NOTE: For -Citizen Of [place] individuals, multiply the result by 1.210. Chronic Kidney Disease: Estimated GFR < 60 mL/min/1.73m2 Severe Kidney Disease: Estimated GFR < 15 mL/min/1.73m2 Glucose, Random 77 60-115 mg/dL CA 10.1 # 8.4-10.2 mg/dL Iron 71 30-160 mcg/dL TIBC 269 228-428 mcg/dL Saturation 26 15-50 % UIBC 198 ug/dL Total Bili 0.4 0.0-1.0 mg/dL AST (GOT) 25 5-31 U/L ALT (GPT) 22 0-31 U/L Protein, Total 7.5 6.5-8.0 g/dL Alb 4.3 3.5-5.0 g/dL Triglyceride 82 <150 mg/dL Desirable Triglyceride: less than 150 mg/dL Borderline High Triglyceride 150-199 mg/dL High Triglyceride: 200-499 mg/dL Very High Triglyceride: greater than or equal to 5OO mg/dL Cholesterol 198 <200 mg/dL Desirable Cholesterol: less than 200 mg/dL Borderline High Cholesterol: 200-239 mg/dL High Cholesterol: greater than 239 mg/dL LDL Calculated 109 H <100 mg/dL Desirable LDL: less than 100 mg/dL Near Optimal/Above Optimal LDL: 110-129 mg/dL Borderline High LDL: 130-159 mg/dL High LDL: 160-189 mg/dL Very High LDL: greater than or equal to 190 mg/dL HDL 73 >40 mg/dL Desirable HDL: greater than 40 mg/dL Note: This HDL assay may give artificially low results in patients with liver disease. Alk Phos 94 39-117 U/L Vit D 25-OH Tot 23.7 L >30 ng/mL Health Based Reference Values* < 20 ng/mL Deficient 20-30 ng/mL Insufficient > 30 ng/mL Sufficient *Holick MF. N Engl J Med. 2007;357:266-280 Care must be taken in interpreting Vitamin D results fr om different laboratories and methodologies. Published data demonstrated that results from patients undergoing hemodialysis may show a negative bias when tested with various automated 25-OH vitamin D assays when compared to LC-MS/MS. When testing samples from patients whose predominant form of Vitamin D is Vitamin D2, such as patients receiving Vitamin D2 supplementation, results that are subtherapeutic should be confirmed with another method such as LC-MS/MS. TSH 1.80 0.32-4.0 uIU/mL END OF REPORT Coding Level of Care Code Est Pt Level 5 (39833) Complex EM visit Add On G2211 Diagnoses Diarrhea, unspecified type R19.7 Diarrhea type: unspecified type S/P colon resection Z90.49 Dysmenorrhea N94.6 Moderate episode of recurrent major depressive disorder F33.1 Major depression episode severity: moderate KENZIE (generalized anxiety disorder) F41.1 Marijuana use F12.90 Transient lingual papillitis K14.0 GERD without esophagitis K21.9 Cervical cancer screening Z12.4 Laboratory exam ordered as part of routine general medical examination Z00.00 Vitamin D deficiency E55.9 Folic acid deficiency (non anemic) E53.8 Additional Codes KENZIE-7 Assessment Billing - KENZIE-7 Assessment Tool: KENZIE-7 Assessment 09734 ([id number]) Assessment & Plan Assessment & Plan (1) Diarrhea: Code(s): R19.7 - Diarrhea, unspecified Category: Medical Qualifiers: Diarrhea type: unspecified type Qualified Code(s): R19.7 - Diarrhea, unspecified Plan: . (2) S/P colon resection: Code(s): Z90.49 - Acquired absence of other specified parts of digestive tract Category: Medical Plan: . (3) Dysmenorrhea: Code(s): N94.6 - Dysmenorrhea, unspecified Category: Medical Plan: . (4) MDD (major depressive disorder), recurrent episode: Code(s): F33.9 - Major depressive disorder, recurrent, unspecified Category: Medical Qualifiers: Major depression episode severity: moderate Qualified Code(s): F33.1 - Major depressive disorder, recurrent, moderate Plan: . (5) KENZIE (generalized anxiety disorder): Code(s): F41.1 - Generalized anxiety disorder Category: Medical Plan: . (6) Marijuana use: Code(s): F12.90 - Cannabis use, unspecified, uncomplicated Category: Medical Plan: Marijuana: Natural = Safe, Right? Marijuana is readily available to use in many states in the [facility]. Understanding the possible risks of use is important to ensure the safety. No matter how you use marijuana (smoke it, eat it, or apply to your skin), it may cause problems with both short term and halfway use How marijuana affects your BRAIN: Potential effects from Short Term Use Poor focus, memory and reaction time Difficulty with problem solving Hallucinations, paranoia, anxiety Potential effects from [employer] Server Use Memory problems and trouble learning new things Depression, hallucinations, paranoia, anxiety, worsening PTSD symptoms addiction Brain. It is not safe to drive while on marijuana. It makes it hard to electricity trading analyst distance, concentrate, react quickly to signals and sounds, be alert and coordinated. If alcohol is combined, this risk is even higher! In regular users, some of the effects from intermediate school teacher use may last for days or even weeks after stopping marijuana. How inhaling marijuana affects your LUNGS: Inhaling harmful chemicals Gases Small particles Carcinogens (toxins linked to cancer) Breathing problems similar to tobacco smokers Daily cough with mucus Difficulty breathing Lung infections (bronchitis, pneumonia) Lungs How marijuana affects your HEART: Increases risk of heart attack Within the first hour of smoking Increases heart rate 20?100% increase after smoking Increase lasts up to three hours Changes in heart rhythm Feels like your heart skips a beat, or is fluttering, or beating too fast or too slow Heart Is it SAFE to use marijuana with other medications? A combination that can be concerning is the use of opioids and/or benzodiazepines with marijuana. Opioids + Benzodiazepines + Marijuana: Drowsiness: All three can cause drowsiness. Reaction time: All three can reduce reaction time. Do not drive or operate machinery. Overdose: Opioids and Benzodiazepines can cause reduced breathing and in some cases, breathing can stop and a person can . Marijuana containing higher levels of THC may cause difficulty with thinking and memory and this could result in medication errors where extra doses of opioids, benzodiazepines, or other medications may be taken. What is the harm? Example of Opioids Morphine (MS Contin?, Verito?) Oxycodone (Percocet?, OxyContin?) Hydrocodone (Vicodin?, [place]?) Fentanyl (Duragesic?) Methadone Heroin Example of Benzodiazepines Lorazepam (Ativan?) Diazepam (Valium?) Alprazolam (Xanax?) Clonazepam (Klonopin?) If you have sp ecific questions about the safety of using marijuana with other medications, please contact your provider or pharmacist. Some marijuana users can become addicted! You can have problems with marijuana withdrawal. You may have withdrawal symptoms the day after you stop using. These can get worse 2 to 3 days after using and can take 1 to 2 weeks or longer to go away. Recovery and Treatment Contact your provider or health care team if you are having concerns about your marijuana use or to learn more about available treatment services. The marijuana plant is not an FDA-approved medicine: The U.S. Food and Drug Administration (FDA) has not approved the marijuana plant as a medication due to lack of studies on the risks and benefits. Marijuana contains over 100 chemical substances known as cannabinoids. Some of these, like tetrahydrocannabinol (THC), have mind altering effects and can be intoxicating. Cannabidiol (CBD), another cannabinoid, does not cause the same ?high? users of THC experience. THC has been studied for the treatment of several conditions, including nausea and increasing appetite. CBD is similarly being studied for a number of conditions, including childhood epilepsy and inflammation. What is different between the marijuana product I get from the marijuana shop and a prescription from the pharmacy? The right dose of any medicine is important. A specific dose of THC is approved to treat nausea, but high doses of THC may cause vomiting. The ingredients in a medicine must be measured and stay the same from one dose to the next. The marijuana plant contains unknown ingredients that change from plant to plant. This makes it hard to control the ?dose? of marijuana needed to treat a condition and use it in the same way we use other medicines. Future studies are ongoing to establish the role of the marijuana plant and the cannabinoids found in the plant for treatment of medical conditions. If you have questions about using a marijuana product for a medical condition, please discuss this with your medical provider to determine the most appropriate treatment for you. [place] Providers are not able to prescribe marijuana products. Information in this document was compiled by the [facility] Excellence in Substance Abuse treatment and Education (CESTE). It contains information from factsheets by the National [place] on Drug Abuse (www.drugabuse.gov) and presentation by Gilmer Muñoz, Gilmer Lerma, & Juan Pablo Buckner (2010) entitled ?What providers need to know about cannabis use in Veterans with mental health conditions: Research, policy, practice,? and an additional reference: Lia Jaramillo M.D., Yusuf Matthews, Ph.D., Reed Maravilla M.D., and Katelyn Travis, Ph.D: Adverse Effects of Marijuana. N Engl J Med 2014; 370:2524-0916, April 05, 2014 DOI: 10.1056/FOFNre1424136. [place] P[employer] Academic Detailing Service (7) Transient lingual papillitis: Comment: resolved. Code(s): K14.0 - Glossitis Category: Medical Plan: . (8) GERD without esophagitis: Code(s): K21.9 - Gastro-esophageal reflux disease without esophagitis Category: Medical Plan: . (9) Cervical cancer screening: Code(s): Z12.4 - Encounter for screening for malignant neoplasm of cervix Category: Medical Plan: . (10) Laboratory exam ordered as part of routine general medical examination: Code(s): Z00.00 - Encounter for general adult medical examination without abnormal findings Category: Medical Plan: . (11) Vitamin D deficiency: Code(s): E55.9 - Vitamin D deficiency, unspecified Category: Medical (12) Folic acid deficiency (non anemic): Code(s): E53.8 - Deficiency of other specified B group vitamins Category: Medical Plan: . Plan . Orders: Orders MM tomosynthesis screening BI Today Z12.31 - Encounter for screening mammogram for malignant neoplasm of breast IRON PROFILE Today Z00.00 - Encounter for general adult medical examination without abnormal findings Comprehensive Met. Panel Today Z00.00 - Encounter for general adult medical examination without abnormal findings TSH reflex Free T4 Today Z00.00 - Encounter for general adult medical exam ination without abnormal findings Vitamin B12 and Folate Today Z00.00 - Encounter for general adult medical examination without abnormal findings Vitamin D 25-OH Total Today Z00.00 - Encounter for general adult medical examination without abnormal findings Hemoglobin A1c Today Z00.00 - Encounter for general adult medical examination without abnormal findings TDaP Immunization Today Z23 - Encounter for immunization Complete Blood Count no Diff Today Z00.00 - Encounter for general adult medical examination without abnormal findings Lipid Panel Today Z00.00 - Encounter for general adult medical examination without abnormal findings Microalbumin, Random (w Creat) Today Z00.00 - Encounter for general adult medical examination without abnormal findings Referrals Gastroenterology Referral R19.7 - Diarrhea, unspecified, Z90.49 - Acquired absence of other specified parts of digestive tract TELLER SUPERVISOR Referral N94.6 - Dysmenorrhea, unspecified, Z12.4 - Encounter for screening for malignant neoplasm of cervix Patient Instructions: Walk-In Care (Urgent Care): We Make it Easy Walk-in for urgent medical issues such as: ? Seasonal Allergies ? Insect Bites ? Cough ? Diarrhea ? Acute Asthma Attacks ? Back, Knee or Joint Pain ? Ear Infection ? Fever without a Rash ? Headaches ? Nausea ? [place], Rash or Skin Irritation ? Sore Throat ? Sports Physicals ? Vomiting Most insurances are accepted. Patients do not need to be part of the [facility] to seek care at the walk-in clinic. Locations [address] [place] [address] [place] [address] ? [phone] [facility] in [place] provides services to ages 18 and over. Open Wednesday-Wednesday: 8 a.m. to 5 p.m. and Wednesday: 9 a.m. to 3 p.m.* *Hours may vary due to staffing availability. To confirm Walk-In Care hours in [place], please call [phone]. [address] [place] [address] ? [phone] [facility] in [place] provides services to ages 12 and over. Open Wednesday-Wednesday: 8 a.m. to 5 p.m. Hours may vary due to staffing availability. To confirm Walk-In Care hours in [place], please call [phone]. LABORATORY SERVICES: [facility] Lab ? Primary Location [address] [place] [address] Wednesday through Wednesday 6:00 AM ? 5:00 PM Wednesday 7:00 AM ? 11:00 AM* [phone] The [facility] Lab is centrally located near the front entrance of the Medical Center for easy outpatient access. Convenient parking is provided for outpatients. *Hours may vary due to staffing availability. To confirm Laboratory hours for any location, please call [phone]. Offsite Location For your convenience, we offer offsite laboratory draw stations at the following locations: [address] [facility] [place] ? [address], [address], [place] Wednesday through Wednesday 7:30 AM ? 1:00 PM* [phone] *Hours may vary due to staffing availability. To confirm Laboratory hours for any location, please call [phone]. [place] ? [address] [facility] [place] Wednesday through Wednesday 6:00 AM ? 3:30 PM* Wednesday 6:30 AM ? 3 PM* [phone] *Hours may vary due to staffing availability. To confirm Laboratory hours for any location, please call [phone] [place] [address] Wednesday through Wednesday 7:30 AM ? 4:00 PM* [phone] *Hours may vary due to staffing availability. To confirm Laboratory hours for any location, please call [phone] [place] [address] Wednesday through 9:00 AM ? 4:00 PM* *Hours may vary due to staffing availability. To confirm Laboratory hours for any location, please call [phone]. Appointments are not necessary. Walk-ins are welcome. Like all the departments throughout the [facility], our Lab undergoes frequent reviews to ensure the quality and accuracy of test results, and our staff takes special pride in its status as a nationally accredited facility. Patient Portal: ONE PATIENT. ONE RECORD. BETTER CARE. [facility] has a fully integrated, cutting- edge mobile electronic health information system that has revolutionized the way we care for our patients and manage our organization. This system improves communication and coordination enabling us to provide safe, higher-quality care, and an overall positive experience for staff and patients. Our first priority, as always, is to deliver the highest quality care possible. The system is running in the background supporting that priority. This portal is for all [facility] services and practices. If you are experiencing any technical difficulties with enrolling or logging into the Patient Portal please complete the [facility] Patient Portal Technical Support Form. [facility] now offers a new secure on-line interactive tool for patients to review their health information ? Patient Portal. This interactive web portal will enable patients and their families to take an active role in their care by providing easy, secure access to their health information via the internet. The Patient Portal provides patients with instant access to their health information, including laboratory results, medications, allergies, demographic information, visit history, and more. In addition to managing their own care, parents and health care proxies with authorized consent will appreciate the ability to access the records of those individuals for whom they provide care. Please note: if you wish to gain access (Proxy) to another patient?s portal, you will be required to come to the Medical Records Department in person at [facility]. Both the patient giving proxy access and the proxy will need to provide photo identification and complete the appropriate authorization. The Patient Portal also allows track their appointments online. The [facility] Patient Portal also saves patients time by allowing them to submit updates to their demographic and contact information prior to their visits. Portal email notifications will also alert patients to any new activity on their portal, such as test results and new appointments. In order to initially enroll in the [facility] Patient Portal, you will need to enter some required information including the following: ? your [facility] Medical Record number ? your personal home email address ? name ? date of Please note: In order to enroll in the [facility] Patient Portal, we need to have your email address on file in your electronic medical record. The email address needs to be specific for one person (yourself) in order for your Portal enrollment to be successful. You can update your email address in person with our Registration staff when you are registering for a hospital visit. Otherwise, you will need to come to the Health Information Management (Medical Records) Department at [facility]. We are open from Wednesday ? Wednesday from 7:30 a.m. ? 4:30 p.m. You will be required to present a photo id. Once you have successfully enrolled in the Patient Portal, you will receive a one-time user id and password for the Portal, sent to your email address. This will allow you to log into the Patient Portal within 99 hrs and reset your own logon id and password, and define personal security questions. Once your permanent login and password have been set, you can log into the [facility] Patient Portal at any time via the blue button above or from the Portal Logon button on any page of the [facility] website. [facility] encourage all of our patients to enroll in Patient Portal as it presents a valuable opportunity for patients and their families to actively participate in their care and stay healthy Welcome to [facility]. We look forward to working with you.
[2024-09-01 09:34] VITALS: BP 102/68; PULSE 73; RESP 12; O2SAT 97; BMI 26.2
== END 2024-09-01 10:10 | disposition home or self-care (01) ==
LOC: HO.HMCFM 09:08
PROVIDERS: PCP Nurse Practitioner Family; Visit Provider Nurse Practitioner Family
DX: R19.7 Diarrhea, unspecified (principal); F33.1 Major depressive disorder, recurrent, moderate; Z90.49 Acquired absence of other specified parts of digestive tract; N94.6 Dysmenorrhea, unspecified; F41.1 Generalized anxiety disorder; F12.90 Cannabis use, unspecified, uncomplicated; K14.0 Glossitis; K21.9 Gastro-esophageal reflux disease without esophagitis; E55.9 Vitamin D deficiency, unspecified; E53.8 Deficiency of other specified B group vitamins

== ENCOUNTER 2024-09-01 10:13 | Outpatient (REF) | payer MEDICARE, MEDICAID, SELFPAY ==
[2024-09-01 11:39] LABS: Hematocrit 43.5 % (37.0-47.0); Hemoglobin 14.7 g/dl (12.0-16.0); Mean Corpuscular HGB Conc 33.8 g/dl (31.0-35.0); Mean Corpuscular Hemoglobin 28.8 pg (27.0-33.0); Mean Corpuscular Volume 85.1 fL (80.0-98.0); Mean Platelet Volume 10.2 fL (9.4-12.3); Platelet Count 300 X10*3/uL (160-400); Red Blood Count 5.11 X10*6/uL (4.20-5.50); Red Cell Distribution Width 13.2 % (11.0-16.0); White Blood Count 6.5 X10*3/uL (4.8-10.8)
[2024-09-01 11:44] LABS: Estimated Average Glucose 103 mg/dL; Hemoglobin A1C 124.6383 umol/L; Hemoglobin A1c % 5.2 % (<6.0); Total Hemoglobin (HGBA1C) 3734.4855 umol/L
[2024-09-01 12:31] LABS: Vitamin D 25-OH Total 23.7 ng/mL (>30)
[2024-09-01 12:43] LABS: Folate 3.9 ng/mL (> or = 4.0); Vitamin B12 289 pg/mL (200-900)
[2024-09-01 12:48] LABS: Anion Gap 12 (12-20)
[2024-09-01 12:53] LABS: Alanine Aminotransferase 22 U/L (0-31); Albumin Level 4.3 g/dL (3.5-5.0); Alkaline Phosphatase 94 U/L (39-117); Aspartate Amino Transferase 25 U/L (5-31); Bilirubin Total 0.4 mg/dL (0.0-1.0); Blood Urea Nitrogen 8 mg/dL (9-16); Calcium 10.1 mg/dL (8.4-10.2); Carbon Dioxide 28 mmol/L (22-29); Chloride 103 mmol/L (96-108); Cholesterol 198 mg/dL (<200); Estimated Glomerular Filt Rate > 60; Glucose Random 77 mg/dL (60-115); HDL Cholesterol 73 mg/dL (>40); Iron 71 mcg/dL (30-160); LDL Cholesterol Calculated 109 mg/dL (<100); Percent Iron Saturation 26 % (15-50); Potassium 3.7 mmol/L (3.3-5.1); Sodium 139 mmol/L (135-145); Total Iron Binding Capacity 269 mcg/dL (228-428); Total Protein 7.5 g/dL (6.5-8.0); Triglycerides 82 mg/dL (<150); Unsaturated Iron Binding 198 ug/dL
[2024-09-01 14:54] LABS: Microalbum/Creatinine Ratio Ur 6.6 ug/mg cr (<30)
== END 2024-09-01 10:14 | disposition home or self-care (01) ==
LOC: HO.WFDLDS 10:13
PROVIDERS: Visit Provider Nurse Practitioner Family
DX: R19.7 Diarrhea, unspecified (principal); N94.6 Dysmenorrhea, unspecified; F33.1 Major depressive disorder, recurrent, moderate; F41.1 Generalized anxiety disorder; F12.90 Cannabis use, unspecified, uncomplicated; K21.9 Gastro-esophageal reflux disease without esophagitis; E55.9 Vitamin D deficiency, unspecified; E53.8 Deficiency of other specified B group vitamins; Z90.49 Acquired absence of other specified parts of digestive tract; Z00.00 Encounter for general adult medical examination without abnormal findings; Z23 Encounter for immunization
CPT/HCPCS: 36415; 80053; 80061; 82043; 82306; 82570; 82607; 82746; 83036; 83540; 84443; 85027; 90471; 90715; 96127; 99212

== ENCOUNTER 2024-10-11 07:56 | Outpatient (AMB) | payer MEDICARE, MEDICAID, SELFPAY ==
--- NOTE | 2024-10-11 07:59 | A.OFFPC_ITS ---
Vital Signs 10/11/24 08:05 Height 5 ft 2 in Weight 143 lb BMI 26.2 BP 120/70 Blood Pressure Location Lt brachial Position Sitting Respiration 13 Pulse 88 Pulse Source Pulse Oximeter Pulse Oximetry (%) 98 Oxygen Delivery Method Room Air Intake Visit Reasons: CPE Intake Note: Cpe Mechanical Service Representative Required: No Allergies Sulfa (Sulfonamide Antibiotics) [Sulfa (Sulfonamides)] Allergy (Mild, Verified 10/11/24 08:03) NAUSEA & VOMITING venlafaxine [From Effexor] Allergy (Mild, Verified 10/11/24 08:03) RASH sulfamethoxazole [From Bactrim] Adverse Reaction (Mild, Verified 10/11/24 08:03) NAUSEA trimethoprim [From Bactrim] Adverse Reaction (Mild, Verified 10/11/24 08:03) NAUSEA Medication List - Last Reconciled 10/11/24 by Aliya Desai, TEST CONDUCTOR-BC duloxetine 20 mg PO BID Tobacco use date assessed: 10/11/24 Dental Screening Dental Screen Date: 10/11/24 Did you have a dental visit in the last 12 months?: No Did you have a dental problem in the last 6 months where you did not have access to dental care?: No Was dental information given to patient?: Patient has dentist HPI HPI Comments History of Present Illness Details 43-year-old female with generalized anxi ety disorder, major depressive disorder, GERD, current marijuana user, vit d def, folate acid def w/o anemia Status post electroconvulsive therapy, 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 Colon Dr Travis 2022, repeat 05/22/24 repeat colonoscopy in 2 years (2025) ? Mammo pending ? DEXA n/a still getting periods ? PAP > 3 years ago. Last one done at PCP. Referred to weaving loom operator ? Tdap 09/01/24, declined flu Specialists: General surgery GI Counselor & Psych Here today for CPE. ongoing gastrointestinal issues, particularly diarrhea. This has been persistent and sometimes occurs even when fasting. The problem seems to be exacerbated by the sensation of swallowing air, resulting in a feeling of fullness. She has an appointment scheduled with Dr. Travis in December for further evaluation. She reports the diarrhea is not as severe as it has been, but it remains a significant concern. Additionally, the patient has a history of depression. She was previously on Zoloft and Mirtazapine, which were discontinued due to weight gain-related discomfort. Currently, she is on Duloxetine, but reports it is not entirely effective in managing her depressive symptoms. She has upcoming appointments with her psychiatrist for medication review and has been attending therapy biweekly, which she finds beneficial. The patient has Vitamin D and folate deficiencies, as determined by recent lab work. Experiences a recurring rash on her face, mostly affecting eye brows but now effecting right eyelid . There is no itching associated with the rash. Complaining of headaches.? Reports as migraines.? Located behind the right eye.? Resolves with Tylenol and rest.? Does admit light sensitivity during these periods of headache.? They occur infrequently. Has pain in her right elbow area.? Present for months.? Thought it would go away on its own but has not.? She denies any fever, chills, trauma, redness to the joint.? She reports that not using her right arm improves the pain. Results reviewed: labs wnl except low vit d and folate Plan - For gastrointestinal issues, the patie nt will follow up with Dr. Travis in December. - Continue current therapy for depressio n; follow-up with psychiatrist for potential medication adjustment. Biweekly therapy to be continued for mental health support. - To address Vitamin D and folate defici ency, patient will begin [id number] multivitamin, with levels to be rechecked annually. - Apply desonide ointment twice a day fo r rash on eyelid, advised not to get it in the eyes. - Referral made to the parlor chaperone f or routine eye examination due to reported headaches and rash near eyes. - For possible golfer?s elbow, discuss t he use of a counterforce band and consider a short course of NSAIDs for symptom relief We arranged a referral for a comprehensive eye evaluation, especially in light of her headache frequency, ensuring that serious conditions are ruled out. Patient was informed and verbally consented to the use of an ambient scribe for clinic note documentation during this visit. RTO 1 YEAR CPE LABS DONE 1 WEEK BEFORE, SOONER PRN This note is constructed using voice recognition software. While every effort has been made to ensure accuracy in unit [employer], still errors may have been included Sometimes, these errors may affect the content or meaning of the given sentence . An additional 15 minutes was spent addressing the problem(s) noted at todays visit. This includes time spent before the visit reviewing the chart, time spent during the visit, and time spent after the visit on documentation PFSH Medical History Anxiety GERD (gastroesophageal reflux disease) History of electroconvulsive therapy Depression Surgical History Hx of esophagogastroduodenoscopy (~09/2023) History of colon resection Hx of colonoscopy H/O tooth extraction Family History Mother Mental health disorder Sister Mental health disorder Father Substance abuse Diabetes Cardiovascular disease Hypertensive pulmonary arterial disease Brother Substance abuse Maternal Grandmother Cancer Social History (Updated 09/01/24 @ 09:32 by Ora Tucker MA) Household Members: Friend(s) Household Members Other:: roomate Housing: Apartment Are you a primary day care home mother to a significant other at home: No Do you presently have visiting nurse or other home services: No Alcohol intake: never Patient Tobacco Use Status: Current everyday Tobacco user Tobacco use type: Smokeless Tobacco e-Cigarette/Vaping Use: Currently Using Substance Use Type: Marijuana service: No Current occupational status: employed Cognitive needs: No Hearing needs: No Vision needs: No Questionnaire PHQ-9 Over the last 2 weeks, how often have you been bothered by any of the following problems? 12428 - PHQ-9 Billing: Patient declined-do not bill Source: Developed by Drs. Ashok De Guzman, Candy Valentino, Otoniel Larsen and colleagues, with an educational garrick from [employer]. Thrive Questionnaire Date Thrive assessed: 10/11/24 I am a: Patient What is your living situation today?: I have a steady place to live Within the past 12 months, did the food you bought not last and you didn't have the money to get more?: Never true Within the past 12 months, did you worry whether your food would run out before you got money to buy more?: Sometimes True Do you have trouble paying for medicines?: No Do you have trouble getting transportation to medical appointments?: No Do you have trouble paying your heating and electricity bill?: No Do you have trouble taking care of your child, family member or friend?: No Do you have trouble with day-to-day activities such as bathing, preparing meals, shopping, managing finances, etc.?: Yes Are you currently unemployed and looking for a job?: No Are you interested in more education?: No Please select the resources that you would like help with: None Currently or been in a relationship where the following occur: No concerns reported THRIVE Score: 1 AUDIT C Alcohol Use Questionnaire (AUDIT-C) 3. How often do you have six or more drinks on one occasion?: Never Total Score: 0 KENZIE-7 AMB Questionnaire KENZIE-7 Date KENZIE - 7 assessed: 09/01/24 Source: Developed by Drs. Ashok De Guzman, Candy Valentino, Otoniel Larsen and colleagues, with an educational garrick from [employer]. Physical exam (Primary Care) Vital Signs: Last Vital Signs Pulse 88 10/11/24 08:05 Resp 13 10/11/24 08:05 BP 120/70 10/11/24 08:05 Pulse Ox 98 10/11/24 08:05 Oxygen Delivery Method Room Air 10/11/24 08:05 BMI result Body Mass Index 26.2 Tobacco/Smoking Status: Tobacco use Status Tobacco use date assessed 10/11/24 10/11/24 08:07 Patient Tobacco Use Status Current everyday Tobacco 10/11/24 08:01 Tobacco use type Smokeless Tobacco 10/11/24 08:01 e-Cigarette/Vaping Use Currently Using 10/11/24 08:01 Thrive Assessment: Date of Thrive Assessment Date Thrive assessed 10/11/24 10/11/24 08:01 Currently or been in a relationship where the following occur: No concerns reported Const Other: General: Well developed, well nourished, in no acute distress. Appears stated age. Head: Normocephalic, atraumatic. Eyes: Pupils are equal, round and reactive to light and accommodation. Conjunctivae are clear. Vision grossly normal. Eczematous patch noted to right upper eyelid proximal to canthus, the skin around bilateral eyebrows has a dry bread flaking rash Ears: TMs clear AU, EACS WNL Nose: Patent, without discharge. Mouth: There are no ulcers or lesions noted. No inflammation, no post nasal drip, no plaques nor exudates. Neck: Supple, no adenopathy or thyromegaly. Lungs: Clear to auscultation bilaterally. No rales, rhonchi or wheeze noted. Good air flow in all rajan. Heart: Regular rate and rhythm. No murmurs, click, rubs or gallops are noted. Abdomen: Bowel sounds present in all quadrants. The abdomen is soft, nontender, with no masses or organomegaly noted. No hernias are noted. Musculoskeletal: Pain over medial epicondyle with palpation on the right side otherwise Joints are nontender, without swelling, redness, or effusions. Range of motion is observed to be normal. Pulses: Peripheral pulses are equal and palpable bilaterally. Extremities: No clubbing, cyanosis nor edema is noted. Neurologic: Gait and station normal. Cranial Nerves 2-12 intact. Motor strength grossly symmetrical and intact. No sensory loss. Balance normal. Skin: No rashes, ulcers, or lesions noted. Turgor is good. Skin color is good. Hair and nails are without abnormalities. Psych: Normal eye contact, affect and mood appropriate, and normal interactions. Patient is alert and appropriate to context. Coding Level of Care Code Est Pt Level 2 (03330) Est Pt Prev Care 40-64y(37628) Diagnoses Encounter for general adult medical examination with abnormal findings Z00. Vitamin D deficiency E55.9 Diarrhea, unspecified type R19.7 Diarrhea type: unspecified type Folic acid deficiency (non anemic) E53.8 Blurred vision, bilateral H53.8 Periodic headache syndrome, not intractable G43.C0 Intractability: not intractable Migraine type: periodic headache syndrome Eczematous dermatitis of right upper eyelid H01.131 Eyelid: upper Laterality: right Golfers elbow of right upper extremity M77.01 Assessment & Plan Assessment & Plan (1) Encounter for general adult medical examination with abnormal findings: Code(s): Z00.01 - Encounter for general adult medical examination with abnormal findings (2) Vitamin D deficiency: Code(s): E55.9 - Vitamin D deficiency, unspecified Category: Medical (3) Diarrhea: Code(s): R19.7 - Diarrhea, unspecified Category: Medical Qualifiers: Diarrhea type: unspecified type Qualified Code(s): R19.7 - Diarrhea, unspecified (4) Folic acid deficiency (non anemic): Code(s): E53.8 - Deficiency of other specified B group vitamins Category: Medical (5) Blurred vision, bilateral: Code(s): H53.8 - Other visual disturbances Category: Medical (6) Migraine headache: Code(s): G43.909 - Migraine, unspecified, not intractable, without status migrainosus Category: Medical Qualifiers: Intractability: not intractable Migraine type: periodic headache syndrome Qualified Code(s): G43.C0 - Periodic headache syndromes in child or adult, not intractable (7) Eyelid dermatitis, eczematous: Code(s): H01.139 - Eczematous dermatitis of unspecified eye, unspecified eyelid Category: Medical Qualifiers: Eyelid: upper Laterality: right Qualified Code(s): H01.131 - Eczematous dermatitis of right upper eyelid (8) Golfers elbow of right upper extremity: Code(s): M77.01 - Medial epicondylitis, right elbow Category: Medical Plan . Orders: Orders Hemoglobin A1c 1 Year E53.8 - Deficiency of other specified B group vitamins, E55.9 - Vitamin D deficiency, unspecified, Z00.00 - Encounter for general adult medical examination without abnormal findings Lipid Panel 1 Year E53.8 - Deficiency of other specified B group vitamins, E55.9 - Vitamin D deficiency, unspecified, Z00.00 - Encounter for general adult medical examination without abnormal findings Vitamin D 25-OH Total 1 Year E53.8 - Deficiency of other specified B group vitamins, E55.9 - Vitamin D deficiency, unspecified, Z00.00 - Encounter for general adult medical examination without abnormal findings Complete Blood Count no Diff 1 Year E53.8 - Deficiency of other specified B group vitamins, E55.9 - Vitamin D deficiency, unspecified, Z00.00 - Encounter for general adult medical examination without abnormal findings Comprehensive Met. Panel 1 Year E53.8 - Deficiency of other specified B group vitamins, E55.9 - Vitamin D deficiency, unspecified, Z00.00 - Encounter for general adult medical examination without abnormal findings Microalbumin, Random (w Creat) 1 Year E53.8 - Deficiency of other specified B group vitamins, E55.9 - Vitamin D deficiency, unspecified, Z00.00 - Encounter for general adult medical examination without abnormal findings TSH reflex Free T4 1 Year E53.8 - Deficiency of other specified B group vitamins, E55.9 - Vitamin D deficiency, unspecified, Z00.00 - Encounter for general adult medical examination without abnormal findings Vitamin B12 and Folate 1 Year E53.8 - Deficiency of other specified B group vi tamins, E55.9 - Vitamin D deficiency, unspecified, Z00.00 - Encounter for general adult medical examination without abnormal findings Referrals Ophthalmology Referral G43.909 - Migraine, unspecified, not intractable, without status migrainosus, H53.8 - Other visual disturbances Medications: New multivitamin 1 tab PO DAILY 90 tabs 0RF desonide 0.05% 1 appl topical BID-QID PRN 15 grams 0RF skin irritation Patient Instructions: Health screenings for women You should visit your health care provider from time to time, even if you are healthy. The purpose of these visits is to: Screen for medical issues Assess your risk for future medical problems Encourage a healthy lifestyle Update vaccinations and other preventive care services Help you get to know your provider in case of an illness Information Even if you feel fine, you should still see your provider for regular checkups. These visits can help you avoid problems in the future. For example, the only way to find out if you have high blood pressure is to have it checked regularly. High blood sugar and high cholesterol levels also may not have any symptoms in the early stages. A simple blood test can check for these conditions. There are specific times when you should see your provider or receive specific health screenings. The [place] Preventive Services Task Force publishes a list of recommended screenings. Below are screening guidelines for women ages 18 to 39. BLOOD PRESSURE SCREENING Your blood pressure should be checked at least once every 3 to 5 years if: Your blood pressure is in the normal range (top number less than 120 mm Hg and bottom number less than 80 mm Hg) You don't have risk factors for high blood pressure Ask your provider if you need your blood pressure checked more often if: The top number is 120 to 129 mm Hg or the bottom number is 70 to 79 mm Hg You have diabetes, heart disease, kidney problems, are overweight, or have certain other health conditions You have a first-degree relative with high blood pressure You are Black You had high blood pressure during a If the top number is 130 mm Hg or greater or the bottom number is 80 mm Hg or greater, this is considered stage 1 hypertension. Schedule an appointment with your provider to learn how you can reduce your blood pressure. Watch for blood pressure screenings in your area. Ask your provider if you can stop in to have your blood pressure checked. BREAST CANCER SCREENING Experts do not agree about the benefits of breast self-exams in finding breast cancer or saving lives. Talk to your provider about what is best for you. A screening mammogram is not recommended for most women under age 40. Your provider may discuss and recommend mammograms, MRI scans, or ultrasounds if you have an increased risk for breast cancer, such as: A mother or sister who had breast cancer at a young age (most often starting screening earlier than the age the close relative was diagnosed) You carry a high-risk genetic marker CERVICAL CANCER SCREENING Cervical cancer screening should start at age 21 years unless your provider advises otherwise. After the first test: Women ages 21 through 29 should have a Pap test every 3 years. Exoprts do not agree on whether HPV testing is recommended for this age group. Women ages 30 through 65 should be screened with either a Pap test every 3 years or the HPV test every 5 years or both tests every 5 years (called cotesting ). Women who have been treated for precancer (cervical dysplasia) should continue to have Pap tests for 20 years after treatment or until age 65, whichever is longer. If you have had your uterus and cervix removed (total hysterectomy), and you have not been diagnosed with cervical cancer or precancer (high grade cervical neoplasia), you do not need cervical cancer screening. CHOLESTEROL SCREENING Cholesterol screening should begin at: Age 45 for women with no known risk factors for coronary heart disease Age 20 for women with known risk factors for coronary heart disease Repeat cholesterol screening should take place: Every 5 years for women with normal cholesterol levels More often if changes occur in lifestyle (including weight gain and diet) More often if you have diabetes, heart disease, kidney problems, or certain other conditions DIABETES SCREENING You should be screened for diabetes starting at age 35 and then repeated every 3 years if you have no risk factors for diabetes. Screening may need to start earlier and be repeated more often if you have other risk factors for diabetes, such as: You have a first degree relative with diabetes. You are overweight or have obesity. You have high blood pressure, prediabetes, or a history of heart disease. Screening for diabetes should be done if you are planning to become and you are overweight and have other risk factors such as high blood pressure. DENTAL EXAM Go to the dentist once or twice every year for an exam and cleaning. Your dentist will evaluate if you need more frequent visits. EYE EXAM Have an eye exam every 5 to 10 years before age 40. If you have vision problems, have an eye exam every 2 years or more often if recommended by your provider. You should have an eye exam that includes an examination of your retina (back of your eye) at least every year if you have diabetes. IMMUNIZATIONS Commonly needed vaccines include: Flu shot: get one every year. COVID-19 vaccine: ask your provider what is best for you. Tetanus-diphtheria and acellular pertussis (Tdap) vaccine: have one at or after age 19 as one of your tetanus-diphtheria vaccines if you did not receive it as an adolescent. Tetanus-diphtheria: have a booster (or Tdap) every 10 years. Varicella vaccine: receive 2 doses if you never had chickenpox or the varicella vaccine. Hepatitis B vaccine: receive 2, 3, or 4 doses, depending on your exact circumstances. Measles, mumps, and rubella (MMR) vaccine: receive 1 to 2 doses if you are not already immune to MMR. Your provider can tell you if you are immune. Ask your provider about the human papillomavirus (HPV) vaccine if: You have not received the HPV vaccine in the past You have not completed the full vaccine series (you should catch up on this shot) Ask your provider if you should receive other immunizations if you have certain health problems that increase your risk for some diseases such as pneumonia. INFECTIOUS DISEASE SCREENING Women who are sexually active should be screened for chlamydia and gonorrhea up until age 25. Women 25 years and older should be screened for chlamydia and gonorrhea if at high risk. Screening for hepatitis C: All adults ages 18 to 79 should get a one-time test for hepatitis C. people should be screened at every . Screening for human immunodeficiency virus (HIV): All people ages 15 to 65 should get a one-time test for HIV. Depending on your lifestyle and medical history, you may also need to be screened for infections such as syphilis and HIV, as well as other infections. PHYSICAL EXAM All adults should visit their provider from time to time, even if they are healthy. The purpose of these visits is to: Screen for disease Assess your risk of future medical problems Encourage a healthy lifestyle Update your vaccinations and other preventive care services Maintain a relationship with a provider in case of an illness Your height, weight, and BMI should be checked at every exam. During your exam, your provider may ask you about: Depression and anxiety Diet and exercise Alcohol and tobacco use Safety issues, such as using seat belts, smoke detectors, and intimate partner violence Your medicines and risk for interactions SKIN SELF-EXAM Your provider may check your skin for signs of skin cancer, especially if you're at high risk, such as if you: Have had skin cancer before Have close relatives with skin cancer Have a weakened immune system OTHER SCREENING Talk with your provider about colon cancer screening if you have a strong family history of colon cancer or polyps, or if you have had inflammatory bowel disease or polyps yourself. Routine bone density screening of women under 40 is not recommended.
[2024-10-11 08:05] VITALS: BP 120/70; PULSE 88; RESP 13; O2SAT 98; BMI 26.2
--- OUTSIDE RECORDS SUMMARY | 2024-10-11 22:54 | XMS_ITS ---
Author Organization [facility] Address [address] [place] [address] Care Team Providers Care Engineering Instructor Name Role Phone Aliya Desai Primary Care Provider Ashok Klein [phone] REASON FOR VISIT reschedule appt on 12/29/2024 @ 2:40 pm. Encounters Encounter Location Date Provider Diagnosis [facility] [address] [place] [address] [address] [place] [address] 09/15/2024 Ashok Travis PLAN OF TREATMENT Next Appt Details Provider Name:Ashok Travis , 12/06/2024 02:20:00 PM, [address], [address], [place], [address],
--- OUTSIDE RECORDS SUMMARY | 2024-10-11 22:54 | XMS_ITS ---
Author Organization [facility] Address [address] [place] [address] Care Team Providers Care Milk Pickup Driver Name Role Phone Aliya Desai Primary Care Provider Ashok Klein Unavailable [phone] ALLERGIES Allergen (clinical drug ingredient) Drug/Non Drug Allergy documented on EMR Reaction Allergy Type Onset Date Status Substance with sulfonamide structure and antibacterial mechanism of action (substance) Sulfa Antibiotics Unknown Drug Allergy Active Effexor Unknown Drug Allergy Active REASON FOR VISIT Patient presents today for hiatal hernia MEDICATIONS Medication SIG (Take, Route, Fr equency, Duration) Notes Start Date End Date Status Mirtazapine 15 MG Oral for 30 Active Sertraline HCl 200 MG 1 capsule Orally O nce a day for 30 day(s) 02/10/2023 Active SOCIAL HISTORY Tobacco Use: Social History Observation Description Date Details (start date - stop date) Never Smoker NA - NA Sex Assigned At : Social History Observation Description Sex Assigned At Unknown Tobacco Use/Smoking Question Answer Notes Patient is a nonsmoker Alcohol Screen Question Answer Notes Did you have a drink containing alcohol in the p ast year? No Points 0 Interpretation Negative PROBLEMS Problem Type ICD Code Onset Dates Problem Status W/U Status Risk SNOMED Code Notes Problem Colon cancer screening (Z12.11) Active confirmed Colon cancer screening (083081514) VITAL SIGNS BMI 22.48 kg/m2 02/08/2024 Blood pressure systolic 00 mm Hg 02/08/20 24 Blood pressure diastolic 00 mm Hg 024 Height 61 in 02/08/2024 Weight 119 lbs 02/08/2024 Encounters Encounter Location Date Provider Diagnosis [facility] [address] [place] [address] 02/08/2024 Ashok Travis History of adenomato us polyp of colon Z86.010 ; Villous adenoma of colon D37.4 ; Abnormal CT scan, colon R93.3 and Colon cancer screening Z12.11 ASSESSMENTS Encounter Date Diagnosis Assessment Notes Treatment Notes Treatment Clinical Notes 02/08/2024 History of adenomatous polyp of colon (ICD-10 - Z86.010) 02/08/2024 Villous adenoma of colon (ICD-10 - D37.4) 02/08/[address] scan, colon (ICD-10 - R93.3) 02/08/2024 Colon cancer screening (ICD-10 - Z12.11) PLAN OF TREATMENT Future Test Test Name Order Date COLONOSCOPY 02/08/2024 Next Appt Details Follow Up: prn, Reason: Provider Name:Ashok Travis , 12/06/2024 02:20:00 PM, [address], [address], [place], [address], Progress Notes * Examination Category Sub-Category Detail Notes General Examination GENERAL APPEARANCE: pleasant , well nourished, well developed, in no acute distress HEAD: EYES: sclera non-icteric EARS: NOSE: THROAT: NECK/THYROID: no cervical lymphade nopathy, neck supple HEART: S1, S2 normal CHEST: LUNGS: clear to auscultatio n bilaterally ABDOMEN: normal bowel sounds, no guarding or rigidity, no guarding or rigidity, no masses palpable, soft, nontender, nondistended NEUROLOGIC: alert and oriented SKIN: nonjaundiced, no spi arlen angiomata EXTREMITIES: no edema PERIPHERAL PULSES: BACK: BREASTS: MUSCULOSKELETAL: MALE GENITOURINARY: LYMPH NODES: RECTAL EXAM: FEMALE GENITOURINARY: ORAL CAVITY: mucosa moist
--- OUTSIDE RECORDS SUMMARY | 2024-10-11 22:54 | XMS_ITS ---
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 confirmed History of gastrointestinal tract bypass (059088658) Encounters Encounter Location Date Provider Diagnosis [facility] [address] [place] [id number] 05/22/2024 Ashok Travis Colon cancer scree marguerite Z12.11 ; Personal history of colonic polyps Z86.010 ; Intestinal bypass and anastomosis status Z98.0 and Other hemorrhoids K64.8 ASSESSMENTS Encounter Date Diagnosis Assessment Notes Treatment Notes Treatment Clinical Notes 05/22/2024 Colon cancer screening (ICD-10 - Z12.11) 05/22/2024 Personal history of colonic polyps (ICD-10 - Z86.010) 05/22/2024 Intestinal bypass and anastomosis status (ICD-10 - Z98.0) 05/22/2024 Other hemorrhoids (ICD-10 - K64.8) PLAN OF TREATMENT Next Appt Details Provider Name:Ashok Travis , 12/06/2024 02:20:00 PM, [address], [address], [place], [address],
--- OUTSIDE RECORDS SUMMARY | 2024-10-11 22:55 | XMS_ITS | Patient Health Record ---
Author Organization [facility] Address [address] [place] [address] Care Team Providers Care Concrete Technician Name Role Phone Aliya Desai Primary Care Provider Ashok Klein Unavailable [phone] ALLERGIES Allergen (clinical drug ingredient) Drug/Non Drug Allergy documented on EMR Reaction Allergy Type Onset Date Status Substance with sulfonamide structure and antibacterial mechanism of action (substance) Sulfa Antibiotics Unknown Drug Allergy Active Effexor Unknown Drug Allergy Active RESULTS Component Value Reference Range Notes Ur Preg Test Reviewed date:05/22/2024 11:25:01 PM Interpretation: Performing Lab:[facility], [address] [place] [id number] Notes/Report: Urine NEGATIVE NEGATIVE This test was developed to detect early . False negative results may occur after the 5th - 7th week of when using this test method. If clinically indicated, consider a serum hCG. REASON FOR REFERRAL No Information MEDICATIONS Medication SIG (Take, Route, Fr equency, Duration) Notes Start Date End Date Status Mirtazapine 15 MG Oral for 30 Active Sertraline HCl 200 MG 1 capsule Orally O nce a day for 30 day(s) 02/10/2023 Active IMMUNIZATIONS Vaccine Route Administration Date Status Comme nts Influenza Unknown 02/10/2023 Refused SOCIAL HISTORY Tobacco Use: Social History Observation [...] W/U Status Risk SNOMED Code Notes Problem Diarrhea, unspecified type (R19.7) Active confirmed 95153406 Problem Abnormal CT scan, colon (R93.3) Active confirmed 538252959 Problem Colonic mass (K63.89) Active confirmed 805468864 Problem Diarrhea of presumed infectious origin (R19.7) Active confirmed 80375256 Problem Abdominal discomfort (R10.9) Active confirmed 01918272 Problem Nausea (R11.0) Active confirmed 1949703 07 Problem Anorexia (R63.0) Active confirmed 89504473 Problem History of adenomatous polyp of colon (Z86.010) Active confirmed 145678873 Problem Villous adenoma of colon (D37.4) Active confirmed 021765419 Problem Colon cancer screening (Z12.11) Active confirmed Colon cancer screening (354101525) Problem Personal history of colonic polyps (Z86.010) Active confirmed History of poly p of colon (situation) (266695906) Problem Intestinal bypass and anastomosis status (Z98.0) Active confirmed History of gastrointestinal tract bypass (644421793) VITAL SIGNS Blood pressure diastolic 00 mm Hg 02/08/2024 Height 61 in 02/08/2024 Blood pressure systolic 00 mm Hg 02/08/2024 Weight 119 lbs 02/08/2024 BMI 22.48 kg/m2 02/08/2024 Encounters Encounter Location Date Provider Diagnosis [facility] Out[facility] [address] [place] [id number] 05/22/2024 Ashok Travis Colon cancer screening Z12.11 ; Personal history of colonic polyps Z86.010 ; Intestinal bypass and anastomosis status Z98.0 and Other hemorrhoids K64.8 [facility] [address] [place] [address] 02/08/2024 Ashok Travis History of adenomatous polyp of colon Z86.010 ; Villous adenoma of colon D37.4 ; Abnormal CT scan, colon R93.3 and Colon cancer screening Z12.11 [facility] [address] [place] [address] 09/15/2024 Ashok Travis ASSESSMENTS Encounter Date Diagnosis Assessment Notes Treatment Notes Treatment Clinical Notes 05/22/2024 Colon cancer screening (ICD-10 - Z12.11) 05/22/2024 Personal history of colonic polyps (ICD-10 - Z86.010) 02/08/2024 History of adenomatous polyp of colon (ICD-10 - Z86.010) 02/08/2024 Villous adenoma of colon (ICD-10 - D37.4) 05/22/2024 Intestinal bypass and anastomosis status (ICD-10 - Z98.0) 02/08/[address] scan, colon (ICD-10 - R93.3) 05/22/2024 Other hemorrhoids (ICD-10 - K64.8) 02/08/2024 Colon cancer screening (ICD-10 - Z12.11) PLAN OF TREATMENT Pending Test Test Name Order Date CHEM 7 PROFILE 03/22/2023 LIVER PROFILE 03/22/2023 LIVER PROFILE 02/12/2023 CEA 02/12/2023 CBC w DIFF 03/22/2023 CBC w DIFF 02/12/2023 XR ABD UPRIGHT AND CHEST 03/22/2023 STOOL WBC 03/22/2023 C DIFFICILE RFLX PCR 03/22/2023 Celiac Panel 10 03/22/2023 XR KUB 03/22/2023 GI PANEL 03/22/2023 Future Test Test Name Order Date COLONOSCOPY 02/10/2023 UPPER GI ENDOSCOPY 07/20/2023 COLONOSCOPY 02/08/2024 Next Appt Details Provider Name:Ashok Travis , 12/06/2024 02:20:00 PM, [address] [place] [address], [address], [place], [address], Insurance Providers Payer Name Payer Address Payer Phone Subscriber Number Group Number Insured Name Patient Relationship to Insured Coverage Start Date Coverage End Date MEDICARE OF [place] [address] [place] CHAVEZ [id number] [phone] [id number] EV GALVIN Self - patient is the insured MEDICAID OF [employer] [address] [place] [address] [id number] EV GALVIN Self - patient is the insured MEDICAL (GENERAL) HISTORY Medical History History ICD Code Anxiety/Depression--receiving TMS with Artemio Burch as of the 02/08/24 OV GERD Denies OR,DM,CVA,Lung disease,renal dise ase Colonoscopy in January of 2023 with the finding of a large tubulovillous adenoma in the sigmoid colon for which she had the below surgery with Dr. Lackey. The pathology revealed a tubulovillous adenoma with high-grade dysplasia, but no carcinoma. The colonoscopy also revealed two > 1 cm tubular adenomas. There was no inflammatory bowel disease and biopsies were negative for microscopic colitis. Negative laboratories for celiac disease in March of 2023 EGD in 09/2023 was normal ot her than a minimal hiatal hernia. Gastric biopsies were negative for H. pylori and duodenal biopsies were negative for celiac disease Surgical History Surgery Date(Month/Year) Dr. Lackey Laparoscopic an terior resection of the large tubulovillous adenoma of the sigmoid colon
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
--- OUTSIDE RECORDS SUMMARY | 2024-10-11 22:55 | XMS_ITS ---
Author Organization [facility], [facility] Address [address], [place] [id number] Care Team Providers Care Lease Administration Analyst Name Role Phone JANETTE GUTIÉRREZ Primary Care Provider [phone] Cait Gutiérrez Unavailable [phone] ALLERGIES Allergen (clinical drug ingredient) Drug/Non Drug Allergy documented on EMR Reaction Allergy Type Onset Date Status Substance with sulfonamide structure and antibacterial mechanism of action (substance) Sulfa Antibiotics rash Drug Allergy Active REASON FOR VISIT F/U URGENT CARE, FLU MEDICATIONS Medication SIG (Take, Route, Frequency, Duration) Notes Start Date End Date Status Percocet 5-325 MG 1 tablet as needed Orally every 6 hrs Not-Taking Tylenol 325 MG 1 capsule as needed Orally every 6 hrs Not-Taking Hydrocortisone (Perianal) 1 % 1 application Externally Twice a day for 30 days 03/12/2023 Not-Taking Ondansetron 4 MG 1 tablet on the tong ue and allow to dissolve Orally twic a day for 10 days 03/12/2023 Not-Taking Sertraline HCl 200 MG 1 capsule Orally O nce a day 11/19/2022 Active SOCIAL HISTORY Tobacco Use: Social History [...] of cocaine and ecstacy Lives with roommate VITAL SIGNS Height 61.5 in 11/16/2023 Height-cm 156.21 cm 11/16/2023 Encounters Encounter Location Date Provider Diagnosis [facility], [facility] [address], [place] [id number] 11/16/2023 Cait Fagan Influenza A J10.1 ASSESSMENTS Encounter Date Diagnosis [...] and coordination of care. PLAN OF TREATMENT Treatment Notes Assessment Notes Influenza A Saritha states that she is feeling better [...] she does not continue to improve by Other Total time spent wit h patient 20 minutes which includes face to face visit, education and coordination of care. Next Appt Details Follow Up: prn, Reason: Progress Notes * SARITHA GALVINDOB:1980 ( 42 yo F)Acc No.[id number]:11/16/2023 Progress Note Patient:??CHARLIECRESCENCIOSARITHA MARTINEZ Provider:??Cait Fagan DNP :1980?Age:42 Y?Sex:Fe male Date:11/16/2023 Phone: Address: [address], [facility], [place] Pcp:JANETTE GUTIÉRREZ Subjective: * Chief Complaints: * ?F/U URGENT CARE, FLU * HPI: ?Patient Care Team:?Music Copyist:??Dr. Travis in [place].? Psychiatrist DR Burch ?Therapist Sudha Perez. ?Visit info:? Virtual Care Communication method: both audio and video ?Patient's location during visit: home ?Provider's location during visit: home office ?Verbal Consent Obtained: We know that your privacy is very important, and we want you to know that we take all steps to make sure your privacy is protected, including all confidentiality protections under the law. [facility]'s virtual care platforms are HIPAA compliant and meet other (federal and state) privacy and security laws. Even though your communications with [facility] are private and secure, there is always some risk with any information that is transmitted through the internet. ?Saritha presents today via Telehealth for F/U Urgent Care visit. ?Went to on Wednesday - body aches, slight headache, cough that was sudden onset on Wed. Diagnosed with Flu A - not treated at , went in just for swab confirmation. ?Presently still feels horrible , severe body aches - slight relief with IBU/Tylenol Q6hrs. Low grade fever 99.3-99.3 over weekend and now back to normal at 97.5. Notes diarrhea episodes, dry cough - can feel in chest, but no SOB or wheezing. Not presently treating. * ROS:?all systems reviewed and are non-contributory unless specified in the HPI. * Medical History:?? * Health Information Technologist History:??Menstrual hist ory:??LMP:??10/18/2023,?Age of Menarche:??13.??Last pap smear date??2022 neg.??Last mammogram date??nvr.?? * OB History:?? Histo ry:??Total pregnancies:??0.?? * Surgical History:??colon res ection 03/04/23 * Hospitalization/Major Diagno stic Procedure:??Colon Resection [facility] 03/04/23-03/09/23 * Family History:??Father: dec eased 72 yrs, [...] No. 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 ?vapes daily Past use of cocaine and ecstacy Lives with roommate. * Medications:??TakingSertrali ne HCl 200 MG Capsule 1 capsule Orally Once a day Taking Sertraline HCl 200 MG Capsule 1 capsule Orally Once a day Not-TakingTylenol 325 MG Capsule 1 capsule as needed Orally every 6 hrs Percocet 5-325 MG Tablet 1 tablet as needed Orally every 6 hrs As neededOndansetron 4 MG Tablet Disintegrating 1 tablet on the tongue and allow to dissolve Orally twic a day As neededHydrocortisone (Perianal) 1 % Cream 1 application Externally Twice a day Not-Taking Tylenol 325 MG Capsule 1 capsule as needed Orally every 6 hrs Not-Taking Percocet 5-325 MG Tablet 1 tablet as needed Orally every 6 hrs As neededNot-Taking Ondansetron 4 MG Tablet Disintegrating 1 tablet on the tongue and allow to dissolve Orally twic a day As neededNot- Taking Hydrocortisone (Perianal) 1 % Cream 1 application Externally Twice a day DiscontinuedVitamin D3 125 MCG (5000 UT) Capsule 1 capsule Orally Once a day Propranolol HCl 10 MG Tablet 1 tablet Orally twice daily busPIRone HCl 30 MG Tablet 1 tablet Orally Twice a day Famotidine 20 MG Tablet 1 tablet at bedtime as needed Orally Once a day Estrace 0.1 MG/GM Cream 0.5gm Vaginal once a night for 7 nights and then 3 nights a week Medication List reviewed and reconciled with the patientDiscontinued Vitamin D3 125 MCG (5000 UT) Capsule 1 capsule Orally Once a day Discontinued Propranolol HCl 10 MG Tablet 1 tablet Orally twice daily Discontinued busPIRone HCl 30 MG Tablet 1 tablet Orally Twice a day Discontinued Famotidine 20 MG Tablet 1 tablet at bedtime as needed Orally Once a day Discontinued Estrace 0.1 MG/GM Cream 0.5gm Vaginal once a night for 7 nights and then 3 nights a week Medication List reviewed and reconciled with the patient * Allergies:??Sulfa Antibiotic s: rash - Side Effects - Criticality Unknown Objective: * Vitals:??BP: Not Taken - Tel ehealth, Ht: 61.5 in, Ht-cm: 156.21 cm. * Examination: ?General Examination: ?General appearance: no acute distress, speaking full sentences, thoughts clear and appropriate. ? Head: normocephalic, atraumatic. ? Eyes: sclera anicteric. ? Oral cavity: with good dentition, tongue is midline. ? Lungs: non-labored breathing, no audible shortness of breath or wheezing. ? Neurologic: alert and oriented, cooperative with exam. ? Psych: with good judgement and insight, speech is clear and coherent, normal affect / mood. Assessment: * Assessment: 1.??Influenza A - J10.1 (Fifi beltrán)?? Plan: * Treatment: 2.??Others?? Notes: Total time spent with patient 20 minutes which includes face to face visit, education and coordination of care.? * Procedure Codes:??25422 Tele health Established patient visit, 20-29 minutes, Modifiers: GT * Preventive Medicine:?Last CPE: 01/07/2023 Colonoscopy: 4/14/23 Found 1 polyps and a mass , had surgery to remove (resection of colon) and it was neg per pt , done at [facility] Endoscopy: nvr Covid Vac: Yes Flu Vac: No. * Follow Up:??prn * Billing Information: * Visit Code:?? * Procedure Codes:?? 38570 Telehealth Established patient visit, 20-29 minutes. Modifiers: GT * Sign off status: Completed true * Provider:??Cait Fagan DNP Date:?? History and Physical Notes * HPI (History of Present Illness) Category Sub-Category Detail Notes Category Not es Patient Care Team Music Copyist: Dr. Travis in [place] Psychiatrist DR Burch Therapist Sudha Perez Visit info Virtual Care Communication method: both audio and video Patient's location during visit: home Provider's location during visit: home office Verbal Consent Obtained: We know that your privacy is very important, and we want you to know that we take all steps to make sure your privacy is protected, including all confidentiality protections under the law. [facility]'s virtual care platforms are HIPAA compliant and meet other (federal and state) privacy and security laws. Even though your communications with [facility] are private and secure, there is always some risk with any information that is transmitted through the internet. Saritha presents today via Telehealth for F/U Urgent Care visit. Went to on Wednesday - body aches, slight headache, cough that was sudden onset on Sat. Diagnosed with Flu A - not treated at , went in just for swab confirmation. Presently still feels horrible , severe body aches - slight relief with IBU/Tylenol Q6hrs. Low grade fever 99.3-99.3 over weekend and now back to normal at 97.5. Notes diarrhea episodes, dry cough - can feel in chest, but no SOB or wheezing. Not presently treating. Examination Category Sub-Category Detail Notes Category Not es General Examination General appearance: no acute distress, speaking full sentences, thoughts clear and appropriate. Head: normocephalic, atraumatic. Eyes: sclera anicteric. Oral cavity: with good dentition, tongue is midline. Lungs: non-labored breathing, no audible shortness of breath or wheezing. Neurologic: alert and oriented, cooperative with exam. Psych: with good judgement and insight, speech is clear and coherent, normal affect / mood.
== END 2024-10-11 16:56 | disposition home or self-care (01) ==
PROVIDERS: PCP Nurse Practitioner Family; Visit Provider Nurse Practitioner Family
DX: Z00.00 Encounter for general adult medical examination without abnormal findings (principal); R19.7 Diarrhea, unspecified; E55.9 Vitamin D deficiency, unspecified; E53.8 Deficiency of other specified B group vitamins; H53.8 Other visual disturbances; G43.C0 Periodic headache syndromes in child or adult, not intractable; H01.131 Eczematous dermatitis of right upper eyelid; M77.01 Medial epicondylitis, right elbow

== ENCOUNTER → 2024-10-11 07:56 | Outpatient (BNVA) | payer MEDICARE, MEDICAID, SELFPAY | PROVIDERS: PCP Nurse Practitioner Family; Visit Provider Nurse Practitioner Family | DX: Z00.01 Encounter for general adult medical examination with abnormal findings (principal); E55.9 Vitamin D deficiency, unspecified; R19.7 Diarrhea, unspecified; E53.8 Deficiency of other specified B group vitamins; H53.8 Other visual disturbances; G43.C0 Periodic headache syndromes in child or adult, not intractable; H01.131 Eczematous dermatitis of right upper eyelid; M77.01 Medial epicondylitis, right elbow | CPT/HCPCS: 99212; 99396 ==

== ENCOUNTER 2024-11-10 10:22 | Outpatient (REF) | payer MEDICARE, MEDICAID, SELFPAY ==
--- OUTSIDE RECORDS SUMMARY | 2024-11-10 10:38 | XMS_ITS ---
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
--- OUTSIDE RECORDS SUMMARY | 2024-11-10 10:38 | XMS_ITS ---
Author Organization [facility] Address [address] [place] [address] Care Team Providers Care Developmental Mathematics Instructor Name Role Phone Aliya Desai Primary Care Provider Ashok Klein [phone] REASON FOR VISIT reschedule appt on 12/29/2024 @ 2:40 pm. Encounters Encounter Location Date Provider Diagnosis [facility] [address] [place] [address] [address] [place] [address] 09/15/2024 Ashok Travis PLAN OF TREATMENT Next Appt Details Provider Name:Ashok Travis , 12/06/2024 02:20:00 PM, [address] [facility], [address], [place], [address],
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
--- OUTSIDE RECORDS SUMMARY | 2024-11-10 10:39 | XMS_ITS ---
Author Organization [facility], [facility] Address [address], [place] [address] Care Team Providers Care Industrial Maintenance Instructor Name Role Phone JANETTE GUTIÉRREZ Primary Care Provider [phone] Cait Gutiérrez Unavailable [phone] ALLERGIES Allergen (clinical drug ingredient) Drug/Non Drug [...] 11/16/2023 Encounters Encounter Location Date Provider Diagnosis [facility], [facility] [address], [place] [phone] 11/16/2023 Cait Fagan Influenza A J10.1 ASSESSMENTS [...] * SARITHA GALVINDOB:1980 ( 42 yo F)Acc No.[id number]:11/16/2023 Progress Note Patient:??CHARLIECRESCENCIOSARITHA MARTINEZ Provider:??Cait Fagan DNP :1980?Age:42 Y?Sex:Fe male Date:11/16/2023 Phone: Address: [address], [facility], [place] Pcp:JANETTE GUTIÉRREZ Subjective: * Chief Complaints: * ?F/U URGENT CARE, FLU * HPI: ?Patient Care Team:?Director Microbiology:??Dr. Travis in [place].? Psychiatrist DR Burch ?Therapist Sudha Perez. ?Visit info:? Virtual Care Communication method: both audio and video ?Patient's location during visit: home ?Provider's location during visit: home office ?Verbal Consent Obtained: We know that your privacy is very important, and we want you to know that we take all steps to make sure your privacy is protected, including all confidentiality protections under the law. [facility]'s virtual care platforms are HIPAA compliant and meet other (federal and state) privacy and security laws. Even though your communications with [facility] are private and secure, there is [...] in the HPI. * Medical History:?? * [facility] History:??Menstrual hist ory:??LMP:??10/18/2023,?Age of Menarche:??13.??Last pap smear date??2022 neg.??Last mammogram date??nvr.?? * OB History:?? Histo ry:??Total pregnancies:??0.?? * Surgical History:??colon res ection 03/04/23 * Hospitalization/Major Diagno stic Procedure:??Colon Resection [facility] 03/04/23-03/09/23 * Family History:??Father: dec eased 72 [...] No. 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 ?vapes daily Past use of cocaine [...] education and coordination of care.? * Procedure Codes:??73579 Tele health Established patient visit, 20-29 minutes, Modifiers: GT * Preventive Medicine:?Last CPE: 01/07/2023 Colonoscopy: 4/14/23 Found 1 polyps and a mass , had surgery to remove (resection of colon) and it was neg per pt , done at [facility] Endoscopy: nvr Covid Vac: Yes Flu Vac: No. * Follow Up:??prn * Billing Information: * Visit Code:?? * Procedure Codes:?? 62130 Telehealth Established patient visit, 20-29 minutes. Modifiers: GT * Sign off status: Completed true * Provider:??Cait Fagan DNP Date:?? History and Physical Notes * HPI (History of Present Illness) Category Sub-Category Detail Notes Category Not es Patient Care Team Director Microbiology: Dr. Travis in [place] Psychiatrist DR Burch Therapist Sduha Perez Visit info Virtual Care Communication method: both audio and video Patient's location during visit: home Provider's location during visit: home office Verbal Consent Obtained: We know that your privacy is very important, and we want you to know that we take all steps to make sure your privacy is protected, including all confidentiality protections under the law. [facility]'s virtual care platforms are HIPAA compliant and meet other (federal and state) privacy and security laws. Even though your communications with [facility] are private and secure, there is [...]
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
--- OUTSIDE RECORDS SUMMARY | 2024-11-10 10:39 | XMS_ITS ---
Author Organization [facility] Address [address] [place] [address] Care Team Providers Care Scalehouse Attendant Name Role Phone Aliya Desai Primary Care Provider Ashok Klein Unavailable [phone] ALLERGIES Allergen (clinical drug ingredient) Drug/Non Drug [...] screening (Z12.11) Active confirmed Colon cancer screening (484014208) VITAL SIGNS BMI 22.48 kg/m2 02/08/2024 Blood pressure systolic 00 mm Hg 02/08/20 24 Blood pressure diastolic 00 mm Hg 024 Height 61 in 02/08/2024 Weight 119 lbs 02/08/2024 Encounters Encounter Location Date Provider Diagnosis [facility] [address] [place] [address] 02/08/2024 Ashok Travis History of adenomato us [...] 02:20:00 PM, [address], [address], [place], [address], Progress Notes * Examination Category Sub-Category Detail [...]
--- OUTSIDE RECORDS SUMMARY | 2024-11-10 10:39 | XMS_ITS | Patient Health Record ---
Author Organization [facility] Address [address] [place] [address] Care Team Providers Care Fruit Vendor Name Role Phone Aliya Desai Primary Care Provider Ashok Klein Unavailable [phone] ALLERGIES Allergen (clinical drug ingredient) Drug/Non Drug Allergy documented on EMR Reaction Allergy Type Onset Date Status Substance with sulfonamide structure and antibacterial mechanism of action (substance) Sulfa Antibiotics Unknown Drug Allergy Active Effexor Unknown Drug Allergy Active RESULTS Component Value Reference Range Notes Ur Preg Test Reviewed date:05/22/2024 11:25:01 PM Interpretation: Performing Lab:[facility], [address] [place] [phone] Notes/Report: Urine NEGATIVE NEGATIVE This test was [...] Problem Diarrhea, unspecified type (R19.7) Active confirmed 71753404 Problem Abnormal CT scan, colon (R93.3) Active confirmed 838901908 Problem Colonic mass (K63.89) Active confirmed 089404024 Problem Diarrhea of presumed infectious origin (R19.7) Active confirmed 64629233 Problem Abdominal discomfort (R10.9) Active confirmed 57557905 Problem Nausea (R11.0) Active confirmed 4282229 07 Problem Anorexia (R63.0) Active confirmed 17688446 Problem History of adenomatous polyp of colon (Z86.010) Active confirmed 025346371 Problem Villous adenoma of colon (D37.4) Active confirmed 636681329 Problem Colon cancer screening (Z12.11) Active confirmed Colon cancer screening (147522509) Problem Personal history of colonic polyps (Z86.010) Active confirmed History of poly p of colon (situation) (823701507) Problem Intestinal bypass and anastomosis status (Z98.0) Active confirmed History of gastrointestinal tract bypass (644647610) VITAL SIGNS Blood pressure diastolic 00 mm Hg 02/08/2024 Height 61 in 02/08/2024 Blood pressure systolic 00 mm Hg 02/08/2024 Weight 119 lbs 02/08/2024 BMI 22.48 kg/m2 02/08/2024 Encounters Encounter Location Date Provider Diagnosis [facility] Outpatient [address] [place] [id number] 05/22/2024 Ashok Travis Colon cancer screening Z12.11 ; Personal history of colonic polyps Z86.010 ; Intestinal bypass and anastomosis status Z98.0 and Other hemorrhoids K64.8 [facility] [address] [place] [address] 02/08/2024 Ahsok Travis History of adenomatous polyp of colon Z86.010 ; Villous adenoma of colon D37.4 ; Abnormal CT scan, colon R93.3 and Colon cancer screening Z12.11 [facility] [address] [facility] [address] [place] [address] 09/15/2024 Ashok Travis ASSESSMENTS Encounter Date Diagnosis [...] Provider Name:Ashok Travis , 12/06/2024 02:20:00 PM, [address] [place] [address], [address], [place], [address], Insurance Providers Payer Name Payer Address Payer Phone Subscriber Number Group Number Insured Name Patient Relationship to Insured Coverage Start Date Coverage End Date MEDICARE OF [place] [address] EVANGELISTA CHAVEZ [id number] EV GALVIN Self - patient is the insured MEDICAID OF [employer] [address] [place] [address] [id number] EV GALVIN Self - patient is the insured MEDICAL (GENERAL) HISTORY Medical History History ICD Code Anxiety/Depression--receiving TMS with Artemio Burch as of the 02/08/24 OV GERD Denies KS,DM,CVA,Lung disease,renal dise ase Colonoscopy in January of [...]
== END 2024-11-10 10:23 | disposition home or self-care (01) ==
LOC: HO.MAMMO 10:22
PROVIDERS: PCP Nurse Practitioner Family; Visit Provider Nurse Practitioner Family
DX: Z12.31 Encounter for screening mammogram for malignant neoplasm of breast (principal)
CPT/HCPCS: 77063; 77067

== ENCOUNTER → 2024-11-10 10:30 | Outpatient (BNV) | payer MEDICARE, MEDICAID, SELFPAY | PROVIDERS: PCP Nurse Practitioner Family; Visit Provider Internal Medicine | DX: Z12.31 Encounter for screening mammogram for malignant neoplasm of breast (principal) | CPT/HCPCS: 77063; 77067 ==

== ENCOUNTER 2024-11-16 13:52 | Outpatient (AMB) | payer MEDICARE, MEDICAID, SELFPAY ==
[2024-11-16 14:00] VITALS: BP 120/70; BMI 25.6
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
== END 2024-11-16 15:18 | disposition home or self-care (01) ==
PROVIDERS: PCP Nurse Practitioner Family; Visit Provider Advanced Practice Midwife
DX: Z01.419 Encounter for gynecological examination (general) (routine) without abnormal findings (principal)
CPT/HCPCS: G0101; Q0091

== ENCOUNTER 2025-04-13 09:05 | Outpatient (AMB) | payer MEDICARE, MEDICAID, SELFPAY ==
--- NOTE | 2025-04-13 09:11 | MHC.PC.OV ---
Vital Signs 04/13/25 09:17 Height 5 ft 2 in Weight 125 lb BMI 22.9 BP 99/66 Blood Pressure Location Rt brachial Position Sitting Respiration 12 Pulse 98 Pulse Source Pulse Oximeter Temp 97.3 F Temp Source Oral Pulse Oximetry (%) 99 Oxygen Delivery Method Room Air Intake Visit Reasons: Nauseous /off Intake Note: Patient c/o nauseous. 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: No Allergies Sulfa (Sulfonamide Antibiotics) [Sulfa (Sulfonamides)] Allergy (Mild, Verified 04/13/25 09:24) NAUSEA & VOMITING venlafaxine [From Effexor] Allergy (Mild, Verified 04/13/25 09:24) RASH sulfamethoxazole [From Bactrim] Adverse Reaction (Mild, Verified 04/13/25 09:24) NAUSEA trimethoprim [From Bactrim] Adverse Reaction (Mild, Verified 04/13/25 09:24) NAUSEA Medication List - Last Reconciled 04/13/25 by Aliya Desai, PIG HANDLER-BC desonide 0.05% 1 appl topical BID-QID PRN duloxetine 90 mg PO ONCE ondansetron HCl 4 mg PO Q8H quetiapine ER 50 mg PO BEDTIME Tobacco use date assessed: 04/13/25 Dental Screening Dental Screen Date: 04/13/25 Did you have a dental visit in the last 12 months?: Yes Did you have a dental problem in the last 6 months where you did not have access to dental care?: No Was dental information given to patient?: Patient has dentist HPI HPI Comments History of Present Illness Details 44-year-old female with generalized anxiety disorder, major depressive disorder, GERD, current marijuana user, vit d def, folate acid def w/o anemia Status post electroconvulsive therapy, 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 Colon Dr Travis 2022, repeat 05/22/24 repeat colonoscopy in 2 years (2025) ? Mammo 11/2024 ? DEXA n/a still getting periods ? PAP 11/2024 ? Tdap 09/01/24, declined flu Specialists: General surgery GI Dr Travis, appt 04/12/25 Counselor & Psych History of Present Illness - The patient is a 44-year-old female presenting with chronic nausea. - Chronic nausea associated with dizziness, lightheadedness, and hot flashes. - Assumed nausea related to perimenopausal status. - Anticipating treatment with Zofran after recent prescription from GI Dr Travis who she saw yesterday - Chronic diarrhea with partial alleviation through fiber supplement usage. - No substantial relief from dietary adjustments regarding lactose and caffeine. - Notable difficulty with eating due to nausea and reports weight fluctuations. - Menstrual-associated exacerbation of symptoms. - Will be seeing Menopause specialist in [facility] this month. - Noted family history of gallbladder disease, including historical cholecystectomy in sibling. - Wt down however at baseline, the increase in wt as relative to remeron for which she has stopped. - Stopped taking MVI - recommended in the past for Vit d and folate def. Review of Systems - Gastrointestinal: Reports nausea and diarrhea. Denies vomiting and abdominal pain. - Reproductive: Reports menstrual irregularities, symptoms believed linked to perimenopause. - General: Reports dizziness, lightheadedness, and weight changes. Physical Exam General: Well developed, well nourished, in no acute distress. Appears stated age. Head: Normocephalic, atraumatic. Eyes: Pupils are equal, round and reactive to light and accommodation. Conjunctivae are clear. Scleras anicteric bilatl. Lungs: Clear to auscultation bilaterally. No rales, rhonchi or wheeze noted. Good air flow in all rajan. Heart: Regular rate and rhythm. No murmurs, click, rubs or gallops are noted. Abdomen: Bowel sounds present in all quadrants. The abdomen is soft, with no masses or organomegaly noted. No hernias are noted. + murphys Psych: Mood and affect appropriate. Patient reports feeling nauseous and lightheaded, particularly around menstruation, and has been experiencing chronic nausea without vomiting. Results - Labs: Folate and Vitamin D previously noted low. Discussion Notes I discussed with the patient the suspicion of gallbladder issues as a potential underlying cause for her chronic nausea, based on the physical examination. We reviewed the planned management of nausea with Zofran and its potential side effect of constipation, considering her chronic diarrhea history. We emphasized the benefit of continuing fiber supplementation to counteract constipation. I proposed a gallbladder ultrasound as a diagnostic step given her family history and clinical findings. The importance of vitamin supplementation with folate and vitamin D was highlighted due to previously observed low levels and potential effects on overall health and neurological function. I confirmed the scheduling of follow-up appointments and advised the patient to ensure her menopause specialist provides notes from their upcoming consultation. Assessment and Plan 1. Chronic Nausea - Assess gallbladder; plan for ultrasound. - Commence Zofran, monitor effects. - Continue fiber supplementation. May need HIDA scan but will wait for US first 2. Perimenopausal Symptoms - Monitor symptoms; upcoming specialist appointment. - Begin multivitamins for folate/Vitamin D. - Continue mental health care adherence. CPE due 10/2025 Patient Instructions - Take Zofran as directed. - Continue taking two fiber supplements daily. - Avoid lactose and minimize caffeine intake. - Make sure to attend your upcoming menopause specialist appointment. - Start a daily multivitamin containing folate and Vitamin D. - If nausea worsens or new symptoms emerge, reach out for medical advice promptly. - Attend US - My office will coordinate f/u once results are back -- will be getting at [facility], asked she get me this info as it is out of the hosp. system Consent Patient was informed and verbally consented to the use of an ambient scribe for clinic note documentation during this visit. Total time spent caring for the patient today was 40 minutes. This includes time spent before the visit reviewing the chart, time spent during the visit, and time spent after the visit on documentation, reviewing laboratory results, diagnostic imaging, medications, performing a medically necessary evaluation, counseling on diagnoses, care coordination, ordering appropriate tests, ordering appropriate medications, review of tests performed by other providers, reporting test results with the patient, communication with other healthcare providers. [facility] Medical History (Updated 04/13/25 @ 09:47 by Aliya Desai, PRECIOUS-JEAN-PIERRE) Anxiety Depression GERD (gastroesophageal reflux disease) History of electroconvulsive therapy Surgical History (Updated 04/13/25 @ 07:51 by Aliya Desai, PRECIOUS-JEAN-PIERRE) H/O tooth extraction History of colon resection Hx of colonoscopy (~2023) Hx of esophagogastroduodenoscopy (~09/2023) Family History Mother Mental health disorder Sister Mental health disorder Father Substance abuse Diabetes Cardiovascular disease Hypertensive pulmonary arterial disease Brother Substance abuse Maternal Grandmother Cancer Social History Household Members: Friend(s) Household Members Other:: roomate Housing: Apartment Are you a primary spiritual care coordinator to a significant other at home: No Do you presently have visiting nurse or other home services: No Alcohol intake: never Patient Tobacco Use Status: Current everyday Tobacco user Tobacco use type: Smokeless Tobacco e-Cigarette/Vaping Use: Currently Using Substance Use Type: Marijuana service: No Current occupational status: employed Cognitive needs: No Hearing needs: No Vision needs: No Female Reproductive History Menstrual Age of Menarche: 13 Questionnaire PHQ-9 Over the last 2 weeks, how often have you been bothered by any of the following problems? 1. Little interest or pleasure in doing things: several days 2. Feeling down, depressed, or hopeless: several days 3. Trouble falling or staying asleep, or sleeping too much: more than half the days 4. Feeling tired or having little energy: more than half the days 5. Poor appetite or overeating: more than half the days 6. Feeling bad about yourself - or that you are a failure or have let yourself or your family down: several days 7. Trouble concentrating on things, such as reading the newspaper or watching television: several days 8. Moving or speaking so slowly that other people could have noticed. Or the opposite - being so fidgety or restless that you have been moving around a lot more than usual: several days 9. Thoughts that you would be better off or of hurting yourself in some way: not at all Total score: 11 Depression Screening Interpretation: Positive Depression Screening Follow-up: Existing condition and In treatment Depression Screening Done: Yes 18638 - PHQ-9 Billing: Yes Source: Developed by Drs. Ashok De Guzman, Candy Valentino, Otoniel Larsen and colleagues, with an educational garrick from [employer]. Thrive Questionnaire Date Thrive assessed: 04/13/25 I am a: Patient What is your living situation today?: I have a steady place to live Within the past 12 months, did the food you bought not last and you didn't have the money to get more?: Never true Within the past 12 months, did you worry whether your food would run out before you got money to buy more?: Never true Do you have trouble paying for medicines?: No Do you have trouble getting transportation to medical appointments?: No Do you have trouble paying your heating and electricity bill?: No Do you have trouble taking care of your child, family member or friend?: No Do you have trouble with day-to-day activities such as bathing, preparing meals, shopping, managing finances, etc.?: No Are you currently unemployed and looking for a job?: No Are you interested in more education?: No Please select the resources that you would like help with: None Currently or been in a relationship where the following occur: No concerns reported THRIVE Score: 0 AUDIT C Alcohol Use Questionnaire (AUDIT-C) 1. How often do you have a drink containing alcohol?: Never 3. How often do you have six or more drinks on one occasion?: Never Total Score: 0 Score Reviewed/Action Taken: Yes KENZIE-7 AMB Questionnaire KENZIE-7 Date KENZIE - 7 assessed: 04/13/25 Feeling nervous, anxious, or on edge: 3 = Nearly every day Not being able to stop or control worryin = Nearly every day Worrying too much about different things: 3 = Nearly every day Trouble relaxin = Nearly every day Being so restless that it is hard to sit still: 2 = More than half the days Becoming easily annoyed or irritable: 2 = More than half the days Feeling afraid as if something awful might happen: 2 = More than half the days Total KENZIE-7 score (0-4 normal; 5-9 mild; 10-14 moderate; 15-21 severe): 18 Source: Developed by Drs. Ashok De Guzman, Candy Valentino, Otoniel Larsen and colleagues, with an educational garrick from [employer]. KENZIE-7 Assessment Billing KENZIE-7 Assessment Tool: KENZIE-7 Assessment 05532 Physical exam (Primary Care) Vital Signs: Last Vital Signs Temp 97.3 F 04/13/25 09:17 Pulse 98 04/13/25 09:17 Resp 12 04/13/25 09:17 BP 99/66 04/13/25 09:17 Pulse Ox 99 04/13/25 09:17 Oxygen Delivery Method Room Air 04/13/25 09:17 BMI result Body Mass Index 22.9 Tobacco/Smoking Status: Tobacco use Status Tobacco use date assessed 04/13/25 04/13/25 09:18 Patient Tobacco Use Status Current everyday Tobacco 04/13/25 09:18 Tobacco use type Smokeless Tobacco 04/13/25 09:18 e-Cigarette/Vaping Use Currently Using 04/13/25 09:18 PHQ-9: PHQ-9 Score PHQ-9: Total score 11 04/13/25 09:18 Depression Screening Interpretation: Positive Depression Screening Follow-up: Existing condition and In treatment Thrive Assessment: Date of Thrive Assessment Date Thrive assessed 04/13/25 04/13/25 09:18 Currently or been in a relationship where the following occur: No concerns reported Coding Level of Care Code Est Pt Level 5 (22442) Complex EM visit Add On G2211 Diagnoses Nausea R11.0 RUQ pain R10.11 Vitamin D deficiency E55.9 Folic acid deficiency (non anemic) E53.8 Additional Codes KENZIE-7 Assessment Billing - KENZIE-7 Assessment Tool: KENZIE-7 Assessment 64768 ([id number]) PHQ-9 - 36412 - PHQ-9 Billing: Yes ([id number]) Assessment & Plan Assessment & Plan (1) Nausea: Code(s): R11.0 - Nausea Category: Medical (2) RUQ pain: Code(s): R10.11 - Right upper quadrant pain Category: Medical (3) Vitamin D deficiency: Code(s): E55.9 - Vitamin D deficiency, unspecified Category: Medical (4) Folic acid deficiency (non anemic): Code(s): E53.8 - Deficiency of other specified B group vitamins Category: Medical Plan . Orders: Orders US abdomen limited Today R10.11 - Right upper quadrant pain, R11.0 - Nausea Medications: Refilled multivitamin 1 tab PO DAILY 90 tabs 0RF
[2025-04-13 09:17] VITALS: BP 99/66; PULSE 98; RESP 12; TEMP 36.3; O2SAT 99; BMI 22.9
--- OUTSIDE RECORDS SUMMARY | 2025-04-13 09:27 | XMS_ITS ---
Author Organization [facility] Address [address] [place] [address] Care Team Providers Care Nurse Assessor Name Role Phone Aliya Desai Primary Care Provider Ashok Klein [phone] REASON FOR VISIT diarrhea Encounters Encounter Location Date Provider Diagnosis [facility] [address] [facility] [address] [place] [id number] 12/29/2024 Ashok Travis Plan Of Treatment Next Appt Details Provider Name:Ashok Travis , 04/16/2026 09:10:00 AM, [address], [address], [place], [address], Progress Notes * EV GALVIN LDOB:1980 (44 yo F)Acc No.[id number]:12/29/2024 Progress Notes Patient:?EV GALVIN Provider:?Ashok Travis MD :1980???Age:44 Y???Sex:Female D ate:12/29/2024 Address:[address] [place], [id number] Pcp:Aliya Desai Subjective: * Chief Complaints: * ???1. Diarrhea. * Medical History:? Objective: * Vitals:? Assessment: Plan: * Treatment: * * The named appointment provid er may or may not be the originator of this progress note, and it is not deemed complete until electronically signed by the appointment provider. Sign off status: Pending * Provider:?Ashok Travis MD Date:? 025 Generated for Nam damon/Bon/Coyitting on:?04/13/2025 09:27 AM EDT
== END 2025-04-13 09:51 | disposition home or self-care (01) ==
LOC: HO.HMCFM 09:05
PROVIDERS: PCP Nurse Practitioner Family; Visit Provider Nurse Practitioner Family
DX: R11.0 Nausea (principal); R10.11 Right upper quadrant pain; E55.9 Vitamin D deficiency, unspecified; E53.8 Deficiency of other specified B group vitamins

== ENCOUNTER → 2025-04-13 09:05 | Outpatient (BNVA) | payer MEDICARE, MEDICAID, SELFPAY | PROVIDERS: PCP Nurse Practitioner Family; Visit Provider Nurse Practitioner Family | DX: R11.0 Nausea (principal); R10.11 Right upper quadrant pain; E55.9 Vitamin D deficiency, unspecified; E53.8 Deficiency of other specified B group vitamins | CPT/HCPCS: 96127; 99212 ==

== ENCOUNTER 2025-07-30 12:45 | Outpatient (AMB) | payer MEDICARE, MEDICAID, SELFPAY ==
--- OUTSIDE RECORDS SUMMARY | 2024-05-22 06:30 | XMS_ITS ---
Author Organization [facility] Address [address] [place] [address] Care Team Providers Care Water Quality Tester Name Role Phone Aliya Desai Primary Care Provider Ashok Klein [phone] REASON FOR VISIT screening colon Problems Problem Type SNOMED Code ICD Code Onset Dates Problem Status W/U Status Risk Notes Problem History of polyp of colon (situation) (497169360) Personal history of colonic polyps (Z86.010) Active confirmed Problem History of gastrointestinal tract bypass (693645840) Intestinal bypass and anastomosis status (Z98.0) Active confirmed Encounters Encounter Location Date Provider [place] [facility] [place] [address] [place] [id number] 05/22/2024 Ashok Travis Colon cancer scree marguerite Z12.11 ; Personal history of colonic polyps Z86.010 ; Intestinal bypass and anastomosis status Z98.0 and Other hemorrhoids K64.8 Assessments Encounter Date Diagnosis (ICD Code) Assessment Notes Treatment Notes Treatment Clinical Notes Section Notes 05/22/2024 Colon cancer screening (ICD-10 - Z12.11) 05/22/2024 Personal history of colonic polyps (ICD-10 - Z86.010) 05/22/2024 Intestinal bypass and anastomosis status (ICD-10 - Z98.0) 05/22/2024 Other hemorrhoids (ICD-10 - K64.8) Plan Of Treatment Next Appt Details Provider Name:Ashok Travis , 04/16/2026 09:10:00 AM, [address], [address], [place], [address], Progress Notes * EV GALVIN LDOB:1980 (44 yo F)Acc No.[id number]:05/22/2024 COLON WITH MAC Patient: EV RIVERA Provider: Cory Travis MD :1980 A ge:43 Y S ex:Female Date:05/22/2024 Address:[address] [place] [address] Pcp:Aliya Desai Subjective: * Chief Complaints: * 1 . Screening colon. * Medical History: Objective: * Vitals: Assessment: * Assessment: 1. C olon cancer screening - Z12.11 (Primary) 2 . P ersonal history of colonic polyps - Z86.010 3 . I ntestinal bypass and anastomosis status - Z98.0 ? 4 . O ther hemorrhoids - K64.8 Plan: * Treatment: * Procedure Codes: G 0105 COLOREC CANCR SCR; COLNSCPY HI RISK, 0529F INTRVL 3+YRS PTS CLNSCP DOCD, Modifiers: 1P , 0528F RCMND FLW-UP 10 YRS DOCD, Modifiers: 1P * Preventive Medicine: [place] Screening: C olonoscopy W as interval between colonoscopies three years or more? N o due to Medical Reason, W as last colonoscopy performed three or more years ago??No due to Medical Reason. * * The named appointment provid er may or may not be the originator of this progress note, and it is not deemed complete until electronically signed by the appointment provider. Sign off status: Pending * Provider: Cory Travis MD Date: 0 05/22/2024 Generated for Nam damon/Bon/eTransmitting on: 0 07/30/2025 01:53 PM EDT
--- OUTSIDE RECORDS SUMMARY | 2024-12-06 10:20 | XMS_ITS ---
Author Organization [facility] Address [address] [place] [address] Care Team Providers Care Tangible Personal Property Appraiser Name Role Phone Aliya Desai Primary Care Provider Ashok Klein [phone] REASON FOR VISIT Patient presents today for diarrhea Encounters Encounter Location Date Provider Diagnosis [facility] [address] [facility] [address] [place] [address] 12/06/2024 Ashok Travis Plan Of Treatment Next Appt Details Provider Name:Ashok Travis , 04/16/2026 09:10:00 AM, [address], [address], [place], [address], Progress Notes * EV GALVIN LDOB:1980 (44 yo F)Acc No.[id number]:12/06/2024 Progress Notes Patient: EV RIVERA Provider: Cory Travis MD :1980 A ge:44 Y S ex:Female Date:12/06/2024 Address:[address] [place], [place] Pcp:Aliya Desai Subjective: * Chief Complaints: * 1 . Patient presents today for diarrhea. * Medical History: Objective: * Vitals: Assessment: Plan: * Treatment: * * The named appointment provid er may or may not be the originator of this progress note, and it is not deemed complete until electronically signed by the appointment provider. Sign off status: Pending * Provider: Cory Travis MD Date: 0 12/06/2024 Generated for Nam damon/Bon/Coyitting on: 0 07/30/2025 01:53 PM EDT
--- OUTSIDE RECORDS SUMMARY | 2024-12-29 10:40 | XMS_ITS ---
Author Organization [facility] Address [address] [place] [address] Care Team Providers Care Research Home Economist Name Role Phone Aliya Desai Primary Care Provider Ashok Klein [phone] REASON FOR VISIT diarrhea Encounters Encounter Location Date Provider Diagnosis [facility] [address] [facility] [address] [place] [address] 12/29/2024 Ashok Travis Plan Of Treatment Next Appt Details Provider Name:Ashok Travis , 04/16/2026 09:10:00 AM, [address], [address], [place], [address], Progress Notes * EV GALVIN LDOB:1980 (44 yo F)Acc No.[id number]:12/29/2024 Progress Notes Patient: EV RIVERA Provider: Cory Travis MD :1980 A ge:44 Y S ex:Female Date:12/29/2024 Address:[address] [facility] Pcp:Aliya Desai Subjective: * Chief Complaints: * 1 . Diarrhea. * Medical History: Objective: * Vitals: Assessment: Plan: * Treatment: * * The named appointment provid er may or may not be the originator of this progress note, and it is not deemed complete until electronically signed by the appointment provider. Sign off status: Pending * Provider: Cory Travis MD Date: 0 12/29/2024 Generated for Nam damon/Bon/eTransmitting on: 0 07/30/2025 01:53 PM EDT
--- NOTE | 2025-07-30 12:50 | A.OFFPC_ITS ---
Vital Signs 07/30/25 12:53 Height 5 ft 2 in Weight 117 lb 2 oz BMI 21.4 BP 94/64 Blood Pressure Location Rt brachial Position Sitting Respiration 12 Pulse 70 Pulse Source Pulse Oximeter Temp 97.8 F Temp Source Oral Pulse Oximetry (%) 98 Oxygen Delivery Method Room Air Intake Visit Reasons: Stomach issues Intake Note: Stomach issues, ongoing. Threshing Operator Required: No Allergies Sulfa (Sulfonamide Antibiotics) (Sulfa (Sulfonamides)) Allergy (Mild, Verified 07/30/25 13:40) NAUSEA & VOMITING venlafaxine (From Effexor) Allergy (Mild, Verified 07/30/25 13:40) RASH sulfamethoxazole (From Bactrim) Adverse Reaction (Mild, Verified 07/30/25 13:40) NAUSEA trimethoprim (From Bactrim) Adverse Reaction (Mild, Verified 07/30/25 13:40) NAUSEA Medication List - Last Reconciled 07/30/25 by Aliya Desai, HEALTH SCIENCES PROGRAM COORDINATOR-BC desonide 0.05% 1 appl topical BID-QID PRN dextrin (Fiber (dextrin)) PO DAILY duloxetine 90 mg PO ONCE multivitamin 1 tab PO DAILY ondansetron HCl 4 mg PO Q8H quetiapine 25 mg PO BID PRN Tobacco use date assessed: 04/13/25 Dental Screening Dental Screen Date: 04/13/25 HPI HPI Comments 2 History of Present Illness Details 44-year-old female with generalized anxi ety disorder, major depressive disorder, GERD, current marijuana user, vit d def, folate acid def w/o anemia Status post electroconvulsive therapy, 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 Colon Dr Travis 2022, repeat 05/22/24 repeat colonoscopy in 2 years (2025) ? Mammo 11/2024 ? DEXA n/a still getting periods ? PAP 11/2024 ? Tdap 09/01/24, declined flu Specialists: General surgery GI Dr Travis, appt 04/12/25 Counselor & Psych History of Present Illness The patient is a 44-year-old female presenting with gastrointestinal complaints. Constipation: - Incomplete bowel movements - Bloating, gas - Stopped fiber supplementation but rest arted about 2 weeks ago. No profound improvement - active w/ GI. Colon UTD. Repeat schedu led 05/2026 Nausea: - Persistent - No vomiting - Appetite reduced Review of Systems - Gastrointestinal: Reports nausea, abdo dianne bloating, gas, early satiety. Denies vomiting or blood in stool. - General: Denies flu-like symptoms from prior flu shots. Physical Exam General: Well developed, well nourished, in no acute distress. Appears stated age. Head: Normocephalic, atraumatic. Eyes: Pupils are equal, round and reactive to light and accommodation. Conjunctivae are clear. Scleras anicteric bilatl. Abdomen: Bowel sounds present in all quadrants. The abdomen is soft, with no masses or organomegaly noted. No hernias are noted. Discussion Notes I discussed with the patient that the symptoms described are consistent with constipation, likely leading to her gastrointestinal complaints. I explained that constipation can cause significant bloating and gas. Considering the patient has tried fiber supplementation with minimal success, I recommended trying polyethylene glycol (MiraLax), which can help. We reviewed that colonoscopy was done approximately two years ago, and another is scheduled for May, providing an upcoming reevaluation opportunity. I also discussed obtaining an abdominal x-ray (KUB) to evaluate for stool load and gas. Risks and benefits of MiraLax were explained, and the schedule for supplementation was discussed. The patient declined a flu shot due to past adverse reactions. Follow-up will be based on her progress and the results of the planned diagnostic investigations. Patient was given time to ask questions. All questions were answered to their satisfaction. Assessment and Plan 1. Constipation - Initiate MiraLax regimen QHS. Increase to BID prn - Obtain KUB x-ray for assessment 2. Nausea - Dietary adjustments as needed I will post results to the portal once avail and provide fu as needed. Patient Instructions - Start taking MiraLax: mix one capful w ith 8 ounces of liquid before bedtime. - Go for a KUB x-ray to check the amount of stool and gas. - Try eating smaller, more frequent meal s if full quickly. - Follow up per schedule to review x-ray outcomes and symptom improvement. Consent Patient was informed and verbally consented to the use of an ambient scribe for clinic note documentation during this visit. Total time spent caring for the patient today was 30 minutes. This includes time spent before the visit reviewing the chart, time spent during the visit, and time spent after the visit on documentation, reviewing laboratory results, diagnostic imaging, medications, performing a medically necessary evaluation, counseling on diagnoses, care coordination, ordering appropriate tests, ordering appropriate medications, review of tests performed by other providers, reporting test results with the patient, communication with other healthcare providers. [facility] Medical History (Updated 07/30/25 @ 13:55 by Aliya Desai, [facility]) Anxiety Depression GERD (gastroesophageal reflux disease) History of electroconvulsive therapy Surgical History Hx of esophagogastroduodenoscopy (~09/2023) History of colon resection Hx of colonoscopy (~2023) H/O tooth extraction Family History Mother Mental health disorder Sister Mental health disorder Father Substance abuse Diabetes Cardiovascular disease Hypertensive pulmonary arterial disease Brother Substance abuse Maternal Grandmother Cancer Social History (Updated 07/30/25 @ 12:58 by Sirena Pearson CMA) Household Members: Friend(s) Household Members Other:: roomate Housing: Apartment Are you a primary rn acute care to a significant other at home: No Do you presently have visiting nurse or other home services: No Alcohol intake: never Patient Tobacco Use Status: Current everyday Tobacco user Tobacco use type: Smokeless Tobacco e-Cigarette/Vaping Use: Currently Using Use of substances other than those prescribed or required for medical reasons: Yes Substance Use Type: Marijuana service: No Current occupational status: employed Cognitive needs: No Hearing needs: No Vision needs: No Female Reproductive History Menstrual Age of Menarche: 13 Questionnaire Thrive Questionnaire Date Thrive assessed: 04/06/25 I am a: Patient What is your living situation today?: I have a steady place to live Within the past 12 months, did the food you bought not last and you didn't have the money to get more?: Never true Within the past 12 months, did you worry whether your food would run out before you got money to buy more?: Never true Do you have trouble paying for medicines?: No Do you have trouble getting transportation to medical appointments?: No Do you have trouble paying your heating and electricity bill?: No Do you have trouble taking care of your child, family member or friend?: No Do you have trouble with day-to-day activities such as bathing, preparing meals, shopping, managing finances, etc.?: No Are you currently unemployed and looking for a job?: No Are you interested in more education?: No Please select the resources that you would like help with: None Currently or been in a relationship where the following occur: No concerns reported THRIVE Score: 0 KENZIE-7 AMB Questionnaire KENZIE-7 Date KENZIE - 7 assessed: 04/13/25 Source: Developed by Drs. Ashok De Guzman, Candy Valentino, Otoniel Larsen and colleagues, with an educational garrick from [employer]. Physical exam (Primary Care) Vital Signs: Last Vital Signs Temp 97.8 F 07/30/25 12:53 Pulse 70 07/30/25 12:53 Resp 12 07/30/25 12:53 BP 94/64 07/30/25 12:53 Pulse Ox 98 07/30/25 12:53 Oxygen Delivery Method Room Air 07/30/25 12:53 BMI result Body Mass Index 21.4 Tobacco/Smoking Status: Tobacco use Status Tobacco use date assessed 04/13/25 07/30/25 12:58 Patient Tobacco Use Status Current everyday Tobacco 07/30/25 12:58 Tobacco use type Smokeless Tobacco 07/30/25 12:58 e-Cigarette/Vaping Use Currently Using 07/30/25 12:58 Thrive Assessment: Date of Thrive Assessment Date Thrive assessed 04/06/25 07/30/25 12:58 Currently or been in a relationship where the following occur: No concerns reported Coding Level of Care Code Est Pt Level 4 (45601) Complex EM visit Add On G2211 Diagnoses Constipation, unspecified constipation type K59.00 Constipation type: unspecified constipation type Influenza vaccination declined Z28.21 Nausea R11.0 S/P colon resection Z90.49 Assessment & Plan Assessment & Plan (1) Constipation: Code(s): K59.00 - Constipation, unspecified Category: Medical Qualifiers: Constipation type: unspecified constipation type Qualified Code(s): K59.00 - Constipation, unspecified (2) Influenza vaccination declined: Code(s): Z28.21 - Immunization not carried out because of patient refusal Category: Medical (3) Nausea: Code(s): R11.0 - Nausea Category: Medical (4) S/P colon resection: Code(s): Z90.49 - Acquired absence of other specified parts of digestive tract Category: Surgical Plan . Orders: Orders XR KUErick Today K59.00 - Constipation, unspecified
[2025-07-30 12:53] VITALS: BP 94/64; PULSE 70; RESP 12; TEMP 36.6; O2SAT 98; BMI 21.4
--- OUTSIDE RECORDS SUMMARY | 2025-07-30 13:54 | XMS_ITS | Patient Health Record ---
Author Organization [facility] Address [address] [place] [phone] Care Team Providers Care Corner Cutter Name Role Phone Aliya Desai Primary Care Provider Ashok Klein Unavailable [phone] Allergies Allergen (clinical drug ingredient) Drug/Non Drug Allergy documented on EMR Reaction Allergy Type Onset Date Status Substance with sulfonamide structure and antibacterial mechanism of action (substance) Sulfa Antibiotics Unknown Drug Allergy Active Effexor Unknown Drug Allergy Active Reason For Referral No Information Medications Medication SIG (Take, Route, Frequency, Duration) Notes Start Date End Date Status QUEtiapine Fumarate 25 MG Oral for 30 Days Active DULoxetine HCl 30 MG TAKE ONE CAPSULE BY MOUTH EVERY MORNING WITH 60MG CAPSULE Oral for 30 Days Active DULoxetine HCl 60 MG TAKE 1 CAPSULE BY M OUTH DAILY Oral for 30 Days Active Ondansetron 4 MG 1 tablet on the tong ue and allow to dissolve Orally Every 6 hours when needed for nausea for 30 days 04/12/2025 Active Immunizations Vaccine Route Administration Date Status Comme nts Influenza Unknown 02/10/2023 Refused Social History Tobacco Use: Social History Observation Description Date Details (start date - stop date) Never Smoker NA - NA Tobacco Use/Smoking Question Answer Notes Patient is a nonsmoker Alcohol Screen Question Answer Notes Did you have a drink containing alcohol in the p ast year? No Points 0 Interpretation Negative Section Notes: Patient uses vape nicotine, smokes marijuana nightly Patient uses vape nicotine, smokes marijuana nightly Patient uses vape nicotine, smokes marijuana nightly Patient uses vape nicotine, smokes marijuana night to help sleep Problems Problem Type SNOMED Code ICD Code Onset Dates Problem Status W/U Status Risk Notes Problem Colon cancer screening (783075169) Colon cancer screening (Z12.11) Active confirmed Problem 459618162 History of adenomatous polyp of colon (Z86.010) Active confirmed Problem History of polyp of colon (situation) (106000315) Personal history of colonic polyps (Z86.010) Active confirmed Problem 972349499 Nausea (R11.0) Active confirmed Problem 67988800 Anorexia (R63.0) Active confirmed Problem History of gastrointestinal tract bypass (728431110) Intestinal bypass and anastomosis status (Z98.0) Active confirmed Problem 443665955 Abnormal CT scan, colon (R93.3) Active confirmed Problem 08241632 Diarrhea, unspecified type (R19.7) Active confirmed Problem 989131239 Villous adenoma of colon (D37.4) Active confirmed Problem 73253645 Abdominal discomfort (R10.9) Active confirmed Problem 53001998 Diarrhea of presumed infectious origin (R19.7) Active confirmed Problem 134497395 Colonic mass (K63.89) Active confirmed Vital Signs Blood pressure diastolic 77 mm Hg 04/12/2025 Height 61 in 04/12/2025 Blood pressure systolic 111 mm Hg 04/12/2025 Weight 123 lbs 04/12/2025 BMI 23.24 kg/m2 04/12/2025 Encounters Encounter Location Date Provider Diagnosis [facility] [address] [place] [phone] 04/12/2025 Ashok Travis Nausea R11.0 ; Irritable bowel syndrome K58.9 ; Villous adenoma of colon D37.4 ; Diarrhea, unspecified type R19.7 and Colon cancer screening Z12.11 [facility] [address] [place] [phone] 09/15/2024 Ashok Travis [facility] [address] [place] [phone] 12/05/2024 Ashok Travis [facility] [address] [place] [phone] 02/07/2025 Ashok Travis Assessments Encounter Date Diagnosis (ICD Code) Assessment Notes Treatment Notes Treatment Clinical Notes Section Notes 04/12/2025 Irritable bowel syndrome (ICD-10 - K58.9) Overall, Saritha appears quite well. We did review her negative colonoscopy from last summer and I advised her that she would be due for a follow-up colonoscopy in the summer 2025 for follow-up given the original findings in 2022. We did review that some of her current GI symptoms seem consistent with a mild irritable bowel syndrome. I did advise her to continue her Metamucil and Imodium as needed, as well as to minimize things like lactose and caffeine in her diet. I will send over a prescription for her to try some Zofran as needed for any nausea. She did have the basically negative upper endoscopy in 2022 as well and I do not think any further workup in that regard is required. If things remain well I will see her in 1 year for a follow-up visit and then schedule her follow-up colonoscopy. I did advise her to contact me in the interim if she has any problems or questions I can be of assistance with. Saritha was comfortable with this plan. Thank you again for allowing me to participate in Saritha's care. I shall continue to keep you advised of her progress. 04/12/2025 Nausea (ICD-10 - R11.0) Try the Zofran as needed Overall, Saritha appears quite well. We did review her negative colonoscopy from last summer and I advised her that she would be due for a follow-up colonoscopy in the summer 2025 for follow-up given the original findings in 2022. We did review that some of her current GI symptoms seem consistent with a mild irritable bowel syndrome. I did advise her to continue her Metamucil and Imodium as needed, as well as to minimize things like lactose and caffeine in her diet. I will send over a prescription for her to try some Zofran as needed for any nausea. She did have the basically negative upper endoscopy in 2022 as well and I do not think any further workup in that regard is required. If things remain well I will see her in 1 year for a follow-up visit and then schedule her follow-up colonoscopy. I did advise her to contact me in the interim if she has any problems or questions I can be of assistance with. Saritha was comfortable with this plan. Thank you again for allowing me to participate in Saritha's care. I shall continue to keep you advised of her progress. 04/12/2025 Villous adenoma of colon (ICD-10 - D37.4) Overall, Saritha appears quite well. We did review her negative colonoscopy from last summer and I advised her that she would be due for a follow-up colonoscopy in the summer 2025 for follow-up given the original findings in 2022. We did review that some of her current GI symptoms seem consistent with a mild irritable bowel syndrome. I did advise her to continue her Metamucil and Imodium as needed, as well as to minimize things like lactose and caffeine in her diet. I will send over a prescription for her to try some Zofran as needed for any nausea. She did have the basically negative upper endoscopy in 2022 as well and I do not think any further workup in that regard is required. If things remain well I will see her in 1 year for a follow-up visit and then schedule her follow-up colonoscopy. I did advise her to contact me in the interim if she has any problems or questions I can be of assistance with. Saritha was comfortable with this plan. Thank you again for allowing me to participate in Saritha's care. I shall continue to keep you advised of her progress. 04/12/2025 Diarrhea, unspecified type (ICD-10 - R19.7) Continue the Metamucil and Imodium as needed for any diarrhea. Adjust Lactose and Caffeine as needed Overall, Saritha appears quite well. We did review her negative colonoscopy from last summer and I advised her that she would be due for a follow-up colonoscopy in the summer 2025 for follow-up given the original findings in 2022. We did review that some of her current GI symptoms seem consistent with a mild irritable bowel syndrome. I did advise her to continue her Metamucil and Imodium as needed, as well as to minimize things like lactose and caffeine in her diet. I will send over a prescription for her to try some Zofran as needed for any nausea. She did have the basically negative upper endoscopy in 2022 as well and I do not think any further workup in that regard is required. If things remain well I will see her in 1 year for a follow-up visit and then schedule her follow-up colonoscopy. I did advise her to contact me in the interim if she has any problems or questions I can be of assistance with. Saritha was comfortable with this plan. Thank you again for allowing me to participate in Saritha's care. I shall continue to keep you advised of her progress. 04/12/2025 Colon cancer screening (ICD-10 - Z12.11) Repeat colonoscopy in 2025 Overall, Saritha appears quite well. We did review her negative colonoscopy from last summer and I advised her that she would be due for a follow-up colonoscopy in the summer 2025 for follow-up given the original findings in 2022. We did review that some of her current GI symptoms seem consistent with a mild irritable bowel syndrome. I did advise her to continue her Metamucil and Imodium as needed, as well as to minimize things like lactose and caffeine in her diet. I will send over a prescription for her to try some Zofran as needed for any nausea. She did have the basically negative upper endoscopy in 2022 as well and I do not think any further workup in that regard is required. If things remain well I will see her in 1 year for a follow-up visit and then schedule her follow-up colonoscopy. I did advise her to contact me in the interim if she has any problems or questions I can be of assistance with. Saritha was comfortable with this plan. Thank you again for allowing me to participate in Saritha's care. I shall continue to keep you advised of her progress. Plan Of Treatment Pending Test Test Name Order Date CHEM [...] COLONOSCOPY 02/08/2024 Next Appt Details Provider Name:Ashok Hawa Travis , 04/16/2026 09:10:00 AM, [address], [address], [place], [address], Insurance Providers Payer Name Payer Address Payer Phone Subscriber Number Group Number Insured Name Patient Relationship to Insured Coverage Start Date Coverage End Date [place] [address] [place] [address] [id number] SARITHA GALVIN Self - patient is the insured MEDICAID OF [facility] [address] [place] [address] [id number] SARITHA GALVIN Self - patient is the insured Medical (General) History Medical History History ICD Code Anxiety/Depression--receiving TMS with Artemio Burch as of the 02/08/24 OV GERD Denies [place],DM,CVA,Lung disease,renal dise ase Colonoscopy in January of [...] duodenal biopsies were negative for celiac disease Follow-up screening colonosc opy in May 2024 was negative for any polyps or colitis Surgical History Surgery Date(Month/Year) Dr. 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
== END 2025-07-30 13:52 | disposition home or self-care (01) ==
LOC: HO.HMCFM 12:46
PROVIDERS: PCP Nurse Practitioner Family; Visit Provider Nurse Practitioner Family
DX: K59.00 Constipation, unspecified (principal); Z28.21 Immunization not carried out because of patient refusal; R11.0 Nausea; Z90.49 Acquired absence of other specified parts of digestive tract

== ENCOUNTER → 2025-07-30 12:45 | Outpatient (BNVA) | payer MEDICARE, MEDICAID, SELFPAY | PROVIDERS: PCP Nurse Practitioner Family; Visit Provider Nurse Practitioner Family | DX: F41.1 Generalized anxiety disorder (principal); F32.A Depression, unspecified; K21.9 Gastro-esophageal reflux disease without esophagitis; K59.00 Constipation, unspecified; R11.0 Nausea; Z28.21 Immunization not carried out because of patient refusal; Z90.49 Acquired absence of other specified parts of digestive tract | CPT/HCPCS: 99212 ==

== ENCOUNTER 2025-07-31 08:41 | Outpatient (REF) | payer MEDICARE, MEDICAID, SELFPAY ==
--- OUTSIDE RECORDS SUMMARY | 2024-05-22 06:30 | XMS_ITS ---
Author Organization [facility] Address [address] [place] [address] Care Team Providers Care Service Station Helper Name Role Phone lAiya Desai Primary Care Provider Ashok Klein [phone] REASON FOR VISIT screening colon Problems Problem Type SNOMED Code ICD Code Onset Dates Problem Status W/U Status Risk Notes Problem History of polyp of colon (situation) (736368727) Personal history of colonic polyps (Z86.010) Active confirmed Problem History of gastrointestinal tract bypass (521659491) Intestinal bypass and anastomosis status (Z98.0) Active confirmed Encounters Encounter Location Date Provider Diagnosis [facility] Outpatient [address] [place] [address] [id number] 05/22/2024 Ashok Travis Colon cancer scree marguerite [...] 09:10:00 AM, [address], [address], [place], [address], Progress Notes * EV GALVIN LDOB:1980 (44 yo F)Acc No.[id number]:05/22/2024 COLON WITH MAC Patient: EV RIVERA Provider: Cory Travis MD :1980 A ge:43 Y S ex:Female Date:05/22/2024 Address:[address] [place] [address] Pcp:Aliya Desai Subjective: * Chief Complaints: * [...] 05/22/2024 Generated for Nam damon/Bon/eTransmitting on: 0 07/31/2025 09:10 AM EDT
--- OUTSIDE RECORDS SUMMARY | 2024-12-06 10:20 | XMS_ITS ---
Author Organization [facility] Address [address] [place] [address] Care Team Providers Care Customer Advisor Name Role Phone Aliya Desai Primary Care Provider Ashok Klein [phone] REASON FOR VISIT Patient presents today for diarrhea Encounters Encounter Location Date Provider Diagnosis [facility] [address] [facility] [address] [place] [address] 12/06/2024 Ashok Travis Plan Of Treatment Next Appt Details Provider Name:Ashok Travis , 04/16/2026 09:10:00 AM, [address], [address], [place], [address], Progress Notes * EV GALVIN LDOB:1980 (44 yo F)Acc No.[id number]:12/06/2024 Progress Notes Patient: EV RIVERA Provider: Cory Travis MD :1980 A ge:44 Y S ex:Female Date:12/06/2024 Address:[address] [place], [place] Pcp:Aliya Desai Subjective: * Chief Complaints: * [...] 12/06/2024 Generated for Nam damon/Bon/Coyitting on: 0 07/31/2025 09:10 AM EDT
--- OUTSIDE RECORDS SUMMARY | 2024-12-29 10:40 | XMS_ITS ---
Author Organization [facility] Address [address] [place] [address] Care Team Providers Care Occupational Therapist Per Diem Name Role Phone Aliya Desai Primary Care Provider Ashok Klein [phone] REASON FOR VISIT diarrhea Encounters Encounter Location Date Provider Diagnosis [facility] [address] [facility] [address] [place] [address] 12/29/2024 Ashok Travis Plan Of Treatment Next Appt Details Provider Name:Ashok Travis , 04/16/2026 09:10:00 AM, [address], [address], [place], [address], Progress Notes * EV GALVIN LDOB:1980 (44 yo F)Acc No.[id number]:12/29/2024 Progress Notes Patient: EV RIVERA Provider: Cory Travis MD :1980 A ge:44 Y S ex:Female Date:12/29/2024 Address:[address] [facility] Pcp:Aliya Desai Subjective: * Chief Complaints: * [...] MD Date: 0 12/29/2024 Generated for Nam damon/Bon/Zenobiasmitting on: 0 07/31/2025 09:10 AM EDT
--- NOTE | ~2025-07-31 | XR_ITS ---
EXAMINATION: XR ABDOMEN KUB CLINICAL INDICATION: K59.00 - Constipation, unspecified COMPARISON: 03/23/2023. TECHNIQUE: AP view of the abdomen. FINDINGS: Bowel gas pattern is normal/nonspecific. There is no focally dilated loop. There is no significant constipation identified. An anastomotic suture line is noted in the sigmoid colon. There is no organomegaly or large abdominal mass. No abnormal soft tissue calcifications are identified. The lung bases are clear. The bony structures appear normal. XR/XR KUB IMPRESSION: Normal KUB radiograph. No evidence of significant constipation or bowel obstruction. Electronically signed by: Jorgito Beckman MD 07/31/2025 09:14 AM EDT
--- OUTSIDE RECORDS SUMMARY | 2025-07-31 09:11 | XMS_ITS | Patient Health Record ---
Author Organization [facility] Address [address] [place] [phone] Care Team Providers Care Data Integrity Consultant Name Role Phone Aliya Desai Primary Care Provider Ashok Klein Unavailable [phone] Allergies Allergen (clinical drug ingredient) Drug/Non Drug [...] Status Risk Notes Problem Colon cancer screening (379399743) Colon cancer screening (Z12.11) Active confirmed Problem 953056282 History of adenomatous polyp of colon (Z86.010) Active confirmed Problem History of polyp of colon (situation) (518536579) Personal history of colonic polyps (Z86.010) Active confirmed Problem 504283758 Nausea (R11.0) Active confirmed Problem 40838286 Anorexia (R63.0) Active confirmed Problem History of gastrointestinal tract bypass (124094599) Intestinal bypass and anastomosis status (Z98.0) Active confirmed Problem 329955514 Abnormal CT scan, colon (R93.3) Active confirmed Problem 41780618 Diarrhea, unspecified type (R19.7) Active confirmed Problem 162561375 Villous adenoma of colon (D37.4) Active confirmed Problem 33679986 Abdominal discomfort (R10.9) Active confirmed Problem 71094546 Diarrhea of presumed infectious origin (R19.7) Active confirmed Problem 762824385 Colonic mass (K63.89) Active confirmed Vital Signs Blood pressure diastolic 77 mm Hg 04/12/2025 Height 61 in 04/12/2025 Blood pressure systolic 111 mm Hg 04/12/2025 Weight 123 lbs 04/12/2025 BMI 23.24 kg/m2 04/12/2025 Encounters Encounter Location Date Provider Diagnosis [facility] [address] [place] [phone] 04/12/2025 Ashok Travis Nausea R11.0 ; Irritable bowel syndrome K58.9 ; Villous adenoma of colon D37.4 ; Diarrhea, unspecified type R19.7 and Colon cancer screening Z12.11 [facility] [address] [place] [phone] 09/15/2024 Ashok Travis [facility] [address] [place] [phone] 12/05/2024 Ashok Travis [facility] [address] [place] [phone] 02/07/2025 Ashok Travis Assessments Encounter Date Diagnosis (ICD Code) Assessment Notes Treatment Notes Treatment Clinical Notes Section Notes 04/12/2025 Irritable bowel syndrome (ICD-10 - K58.9) Overall, Sairtha appears quite well. We did review her [...] Hawa Travis , 04/16/2026 09:10:00 AM, [address], [address], [place], [address], Insurance Providers Payer Name Payer Address Payer Phone Subscriber Number Group Number Insured Name Patient Relationship to Insured Coverage Start Date Coverage End Date MEDICARE OF [place] [address] [place] [address] [id number] SARITHA GALVIN Self - patient is the insured MEDICAID OF [facility] [address] [place] [address] [id number] SARITHA GALVIN Self - patient is the insured Medical (General) History Medical History History ICD Code Anxiety/Depression--receiving TMS with Artemio Burch as of the 02/08/24 OV GERD Denies [place],DM,CVA,Lung disease,renal dise ase Colonoscopy in January of [...]
== END 2025-07-31 08:42 | disposition home or self-care (01) ==
LOC: HO.XRAY 08:41
PROVIDERS: PCP Nurse Practitioner Family; Visit Provider Nurse Practitioner Family
DX: K59.00 Constipation, unspecified (principal)
CPT/HCPCS: 74018

== ENCOUNTER → 2025-07-31 08:50 | Outpatient (BNV) | payer MEDICARE, MEDICAID, SELFPAY | PROVIDERS: PCP Nurse Practitioner Family; Visit Provider Radiology Diagnostic Radiology | DX: K59.00 Constipation, unspecified (principal) | CPT/HCPCS: 74018 ==

== ENCOUNTER 2025-08-17 13:15 | Outpatient (AMB) | payer MEDICARE, MEDICAID, SELFPAY ==
--- OUTSIDE RECORDS SUMMARY | 2024-05-22 06:30 | XMS_ITS ---
Author Organization [facility] Address [address] [place] [address] Care Team Providers Care Training Representative Name Role Phone Aliya Desai Primary Care Provider Ashok Klein [phone] REASON FOR VISIT screening colon Problems Problem Type SNOMED Code ICD Code Onset Dates Problem Status W/U Status Risk Notes Problem History of polyp of colon (situation) (651793732) Personal history of colonic polyps (Z86.010) Active confirmed Problem History of gastrointestinal tract bypass (961660215) Intestinal bypass and anastomosis status (Z98.0) Active confirmed Encounters Encounter Location Date Provider Diagnosis [facility] [place] [address] [place] [address] [id number] 05/22/2024 Ashok Travis Colon cancer scree marguerite [...] Plan Of Treatment Next Appt Details Provider Name:Ashko Hawa Thaddeus , 04/16/2026 09:10:00 AM, [address], [address], [place], [address], Progress Notes * EV GALVIN LDOB:1980 (44 yo F)Acc No.[id number]:05/22/2024 COLON WITH MAC Patient: EV RIVERA Provider: Cory Travis MD :1980 A ge:43 Y S ex:Female Date:05/22/2024 Address:[address] [place] [address] Pcp:Aliya Desai Subjective: * Chief Complaints: * [...] 0 05/22/2024 Generated for Nam damon/Bon/eTransmitting on: 1 03:57 PM EDT
--- OUTSIDE RECORDS SUMMARY | 2024-12-06 10:20 | XMS_ITS ---
Author Organization [facility] Address [address] [place] [address] Care Team Providers Care Necktie Centralizing Machine Operator Name Role Phone Aliya Desai Primary Care Provider Ashok Klein [phone] REASON FOR VISIT Patient presents today for diarrhea Encounters Encounter Location Date Provider Diagnosis [facility] [address] [facility] [address] [place] [address] 12/06/2024 Ashok Travis Plan Of Treatment Next Appt Details Provider Name:Ashok Travis , 04/16/2026 09:10:00 AM, [address], [address], [place], [address], Progress Notes * EV GALVIN LDOB:1980 (44 yo F)Acc No.[id number]:12/06/2024 Progress Notes Patient: EV RIVERA Provider: Cory Travis MD :1980 A ge:44 Y S ex:Female Date:12/06/2024 Address:[address] [place], [place] Pcp:Aliya Desai Subjective: * Chief Complaints: * [...] MD Date: 0 12/06/2024 Generated for Nam damon/Bon/Bird on: 1 03:57 PM EDT
--- OUTSIDE RECORDS SUMMARY | 2024-12-29 10:40 | XMS_ITS ---
Author Organization [facility] Address [address] [place] [address] Care Team Providers Care Public Health Social Worker Name Role Phone Aliya Desai Primary Care Provider Ashok Klein [phone] REASON FOR VISIT diarrhea Encounters Encounter Location Date Provider Diagnosis [facility] [address] [facility] [address] [place] [address] 12/29/2024 Ashok Travis Plan Of Treatment Next Appt Details Provider Name:Ashok Travis , 04/16/2026 09:10:00 AM, [address], [address], [place], [address], Progress Notes * EV GALVIN LDOB:1980 (44 yo F)Acc No.[id number]:12/29/2024 Progress Notes Patient: EV RIVERA Provider: Cory Travis MD :1980 A ge:44 Y S ex:Female Date:12/29/2024 Address:[address] [facility] Pcp:Aliya Desai Subjective: * Chief Complaints: * [...] 0 12/29/2024 Generated for Nam damon/Bon/eTransmitting on: 1 03:56 PM EDT
--- NOTE | 2025-08-17 13:19 | MHC.PC.OV ---
Vital Signs 08/17/25 13:29 Height 5 ft 2 in Weight 114 lb 2 oz BMI 20.9 BP 99/66 Blood Pressure Location Lt brachial Position Sitting Respiration 12 Pulse 72 Pulse Source Pulse Oximeter Temp 97.2 F Temp Source Oral Pulse Oximetry (%) 98 Oxygen Delivery Method Room Air Intake Visit Reasons: Urinary tract infection Intake Note: Patient c/o frequency urination, abd px, and lower back px. Patient needs refill on meds. Tree Driller Required: No Allergies Sulfa (Sulfonamide Antibiotics) (Sulfa (Sulfonamides)) Allergy (Mild, Verified 08/17/25 13:39) NAUSEA & VOMITING venlafaxine (From Effexor) Allergy (Mild, Verified 08/17/25 13:39) RASH sulfamethoxazole (From Bactrim) Adverse Reaction (Mild, Verified 08/17/25 13:39) NAUSEA trimethoprim (From Bactrim) Adverse Reaction (Mild, Verified 08/17/25 13:39) NAUSEA Medication List - Last Reconciled 08/17/25 by Aliya Desai, PRODUCTION CONTROL COORDINATING CLERK- ciprofloxacin HCl 500 mg PO BID desonide 0.05% 1 appl topical BID-QID PRN dextrin (Fiber (dextrin)) PO DAILY duloxetine 90 mg PO ONCE multivitamin 1 tab PO DAILY ondansetron HCl 4 mg PO Q8H quetiapine 25 mg PO BID PRN tamsulosin (Flomax) 0.4 mg PO BEDTIME Tobacco use date assessed: 08/17/25 Dental Screening Dental Screen Date: 08/17/25 Did you have a dental visit in the last 12 months?: Yes Did you have a dental problem in the last 6 months where you did not have access to dental care?: No Was dental information given to patient?: Patient has dentist HPI HPI Comments History of Present Illness Details 44-year-old female with generalized anxiety disorder, major depressive disorder, GERD, current marijuana user, vit d def, folate acid def w/o anemia Status post electroconvulsive therapy, 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 Colon Dr Travis 2022, repeat 05/22/24 repeat colonoscopy in 2 years (2025) ? Mammo 11/2024 ? DEXA n/a still getting periods ? PAP 11/2024 ? Tdap 09/01/24, declined flu Specialists: General surgery GI Dr Travis, appt 04/12/25 Counselor & Psych History of Present Illness The patient is a 44-year-old female presenting with urinary frequency and pelvic pain. Urinary frequency and pelvic pain: - Onset 4 days ago, worsened last night. - Severe pelvic pressure and lower back pain, bilat - No burning during urination or hematuria. - Mild vaginal discharge noted. Denies STD concerns. - Cramping feels like before menses; menses are late, denies chance of . - Decreased appetite, generally feels unwell. - Heating pad and laying down help. Bloating and gastrointestinal discomfort: - Experiencing significant bloating and fullness. - Gas symptoms have increased. - Interference with social activities. - KUB done recently and did not show constipation; active w/ GI. Did not try simethicone yet. Weight loss: - Unintentional loss observed from 117 lb to 114 lb. Family history of kidney disease: - Father with kidney disease and partial nephrectomy. - Aunt with severe renal issues linked to kidney stones. Review of Systems - Genitourinary: Reports frequent urination, lower back pain, mild vaginal discharge; denies hematuria, burning during urination. - Gastrointestinal: Reports significant bloating, gas; denies nausea, vomiting. - General: Reports unintentional weight loss; denies fever. - Recent History: Denies changes in diet impacting symptoms; reports recent episode similar to previous shingles. Physical Exam General: Well developed, well nourished, in no acute distress. Appears stated age. Head: Normocephalic, atraumatic. Eyes: Pupils are equal, round and reactive to light and accommodation. Conjunctivae are clear. Scleras nonicteric Lungs: Clear to auscultation bilaterally. No rales, rhonchi or wheeze noted. Good air flow in all rajan. Heart: Regular rate and rhythm. No murmurs, click, rubs or gallops are noted. Abdomen: Bowel sounds present in all quadrants. The abdomen is soft, nontender, with no masses or organomegaly noted. No hernias are noted. She has flank pain but i dont think this is really CVAT as the pain is localized to her back and does not radiate into abd. Pulses: Peripheral pulses are equal and palpable bilaterally. Extremities: No clubbing, cyanosis nor edema is noted. Psych: Mood and affect appropriate, though patient reports frustration and mental health impact due to ongoing symptoms. Diagnostic results Pending Results - Labs: Urine shows presence of ketones, bilirubin, and protein. - Tests: Urinalysis suggests signs of dehydration. - Diagnostics: Recent KUB showed no stones. Discussion Notes I discussed with the patient the likely diagnosis of urinary tract problems possibly due to dehydration and potential kidney involvement. We discussed using an ultrasound to examine the kidneys and bladder further. I recommended ciprofloxacin, considering her allergies, and warned of small risk of tendon rupture if dehydrated. We also plan to use Flomax to facilitate any stone passage, pending ultrasound results. I advised sipping fluids consistently to stay hydrated to avoid exacerbation. The patient was informed about potential outcomes, and ER intervention was advised in case of severe symptoms. A follow-up for results of urine culture and further care plan was scheduled via the portal. Patient was given time to ask questions. All questions were answered to their satisfaction. Assessment and Plan 1. Urinary frequency and pelvic pain - Renal and bladder ultrasound ordered. - Ciprofloxacin, dosed twice daily for 5 days. - Flomax recommended for improved urinary flow. - Advise on enhanced fluid intake. 2. Bloating and gastrointestinal discomfort - Gas-X suggested before meals. - Monitor dietary influence on symptoms. 3. Possible dehydration - Maintain regular fluid intake. - Expand with fluids like juice, soup. 4. Weight loss - Monitor unintentional weight loss. 5. Family history of kidney disease - Evaluate past family renal issues. - Proceed with kidney function monitoring. Patient Instructions - Take ciprofloxacin as prescribed, with food, for 5 days. - Take Flomax in the evening with dinner. - Drink fluids throughout the day. Try soups or juices if plain water is difficult. - Use Gas-X before eating to help with gas. - Monitor condition and go to ER if you have severe symptoms like a high fever. - Look out for results and updates in your online patient portal. Consent The patient provided informed consent for ciprofloxacin and Flomax after discussing the benefits and risks, including potential for tendon rupture with ciprofloxacin in dehydration. Risks, alternatives, and precautions were reviewed thoroughly. Specifics related to ultrasound were explained, emphasizing its diagnostic role for renal evaluations. Consent was obtained directly from the patient after a thorough understanding of the procedures involved. Patient was informed and verbally consented to the use of an ambient scribe for clinic note documentation during this visit. Total time spent caring for the patient today was 30 minutes. This includes time spent before the visit reviewing the chart, time spent during the visit, and time spent after the visit on documentation, reviewing laboratory results, diagnostic imaging, medications, performing a medically necessary evaluation, counseling on diagnoses, care coordination, ordering appropriate tests, ordering appropriate medications, review of tests performed by other providers, reporting test results with the patient, communication with other healthcare providers. [facility] Medical History (Updated 08/17/25 @ 14:47 by Aliya Desai [facility]) Anxiety Depression GERD (gastroesophageal reflux disease) History of electroconvulsive therapy Surgical History Hx of esophagogastroduodenoscopy (~09/2023) History of colon resection Hx of colonoscopy (~2023) H/O tooth extraction Family History Mother Mental health disorder Sister Mental health disorder Father Substance abuse Diabetes Cardiovascular disease Hypertensive pulmonary arterial disease Brother Substance abuse Maternal Grandmother Cancer Social History (Updated 07/30/25 @ 12:58 by Sirena Pearsno CMA) Household Members: Friend(s) Household Members Other:: roomate Housing: Apartment Are you a primary critical care technician to a significant other at home: No Do you presently have visiting nurse or other home services: No Alcohol intake: never Patient Tobacco Use Status: Current everyday Tobacco user Tobacco use type: Smokeless Tobacco e-Cigarette/Vaping Use: Currently Using Substance Use Type: Marijuana service: No Current occupational status: employed Cognitive needs: No Hearing needs: No Vision needs: No Female Reproductive History Menstrual Age of Menarche: 13 Questionnaire Thrive Questionnaire Date Thrive assessed: 04/06/25 I am a: Patient What is your living situation today?: I have a steady place to live Within the past 12 months, did the food you bought not last and you didn't have the money to get more?: Never true Within the past 12 months, did you worry whether your food would run out before you got money to buy more?: Never true Do you have trouble paying for medicines?: No Do you have trouble getting transportation to medical appointments?: No Do you have trouble paying your heating and electricity bill?: No Do you have trouble taking care of your child, family member or friend?: No Do you have trouble with day-to-day activities such as bathing, preparing meals, shopping, managing finances, etc.?: No Are you currently unemployed and looking for a job?: No Are you interested in more education?: No Please select the resources that you would like help with: None Currently or been in a relationship where the following occur: No concerns reported THRIVE Score: 0 KENZIE-7 AMB Questionnaire KENZIE-7 Date KENZIE - 7 assessed: 04/13/25 Source: Developed by Drs. Ashok De Guzman, Candy Valentino, Otoniel Larsen and colleagues, with an educational garrick from [employer]. Physical exam (Primary Care) Vital Signs: Last Vital Signs Temp 97.2 F 08/17/25 13:29 Pulse 72 08/17/25 13:29 Resp 12 08/17/25 13:29 BP 99/66 08/17/25 13:29 Pulse Ox 98 08/17/25 13:29 Oxygen Delivery Method Room Air 08/17/25 13:29 BMI result Body Mass Index 20.9 Tobacco/Smoking Status: Tobacco use Status Tobacco use date assessed 08/17/25 08/17/25 13:41 Patient Tobacco Use Status Current everyday Tobacco 08/17/25 13:19 Tobacco use type Smokeless Tobacco 08/17/25 13:19 e-Cigarette/Vaping Use Currently Using 08/17/25 13:19 Thrive Assessment: Date of Thrive Assessment Date Thrive assessed 04/06/25 08/17/25 13:19 Currently or been in a relationship where the following occur: No concerns reported Results AMB Urinalysis, Automated UA Leukoctes 0 Jeannine/uL Last Edit by Ora Braden MA on 08/17/25 13:44 UA Nitrite Negative Last Edit by Ora Braden MA on 08/17/25 13:44 UA Urobilinogen 3.5 mg/dL Last Edit by Ora Braden MA on 08/17/25 13:44 UA Protein 015 mg/dL Last Edit by Ora Braden MA on 08/17/25 13:44 UA pH 5.0 Last Edit by Ora Braden MA on 08/17/25 13:44 UA Blood 0 Dread/uL Last Edit by Ora rBaden MA on 08/17/25 13:44 UA Specific [place] 1.030 Last Edit by Ora Braden MA on 08/17/25 13:44 UA Ketone Positive Last Edit by Ora Braden MA on 08/17/25 13:44 UA Bilirubin 17 mg/dL Last Edit by Ora Braden MA on 08/17/25 13:44 UA Glucose 0 mg/dL Last Edit by Ora Braden MA on 08/17/25 13:44 Results Reviewed Results Reviewed: Laboratory Last Values Urine pH (Auto) 5.0 08/17/25 13:30 Specific [place] (Auto) 1.030 08/17/25 13:30 Urine Protein (Auto) 015 mg/dL 08/17/25 13:30 Glucose (UA)(Auto) 0 mg/dL 08/17/25 13:30 Urine Ketones (Auto) Positive 08/17/25 13:30 Urine Blood (Auto) 0 Dread/uL 08/17/25 13:30 Urine Nitrite (Auto) Negative 08/17/25 13:30 Urine Bilirubin (Auto) 17 mg/dL 08/17/25 13:30 Urine Urobilinogen (Auto) 3.5 mg/dL 08/17/25 13:30 Leukocyte Esterase (Auto) 0 Jeannine/uL 08/17/25 13:30 Coding Level of Care Code Est Pt Level 4 (24490) Complex EM visit Add On G2211 Diagnoses UTI symptoms R39.9 Urinary frequency R35.0 Family history of kidney disease Z84.19 Bilateral flank pain R10.A3 Laterality: bilateral Assessment & Plan Assessment & Plan (1) UTI symptoms: Code(s): R39.9 - Unspecified symptoms and signs involving the genitourinary system Category: Medical (2) Urinary frequency: Code(s): R35.0 - Frequency of micturition Category: Medical (3) Family history of kidney disease: Code(s): Z84.19 - Family history of other disorders of kidney and ureter Category: Medical (4) Flank pain: Code(s): R10.A0 - Flank pain, unspecified side Category: Medical Qualifiers: Laterality: bilateral Qualified Code(s): R10.A3 - Flank pain, bilateral Plan . Orders: Orders US renal BI Today R10.A0 - Flank pain, unspecified side, R35.0 - Frequency of micturition, Z84.19 - Family history of other disorders of kidney and ureter Urine Culture Today R39.9 - Unspecified symptoms and signs involving the genitourinary system AMB Urinalysis Automated Today Z13.9 - Encounter for screening, unspecified US bladder Today R10.A0 - Flank pain, unspecified side, R35.0 - Frequency of micturition, Z84.19 - Family history of other disorders of kidney and ureter Medications: New ciprofloxacin HCl 500 mg PO BID 10 tabs 0RF tamsulosin (Flomax) 0.4 mg PO BEDTIME 14 caps 0RF Refilled desonide 0.05% 1 appl topical BID-QID PRN 15 grams 12RF skin irritation
[2025-08-17 13:29] VITALS: BP 99/66; PULSE 72; RESP 12; TEMP 36.2; O2SAT 98; BMI 20.9
--- OUTSIDE RECORDS SUMMARY | 2025-08-17 15:57 | XMS_ITS | Patient Health Record ---
Author Organization [facility] Address [address] [place] [phone] Care Team Providers Care Hospital Security Officer Name Role Phone Aliya Desai Primary Care Provider Ashok Klein Unavailable [phone] Allergies Allergen (clinical drug ingredient) Drug/Non Drug Allergy documented on EMR Reaction Allergy Type Onset Date Status Substance with sulfonamide structure and antibacterial mechanism of action (substance) Sulfa Antibiotics Unknown Drug Allergy Active Effexor Unknown Drug Allergy Active Reason For Referral No Information Medications Medication SIG (Take, Route, Frequency, Duration) Notes Start Date End Date Status QUEtiapine Fumarate 25 MG Oral; Duration: 30 Days Active DULoxetine HCl 30 MG TAKE ONE CAPSULE BY MOUTH EVERY MORNING WITH 60MG CAPSULE Oral; Duration: 30 Days Active DULoxetine HCl 60 MG TAKE 1 CAPSULE BY M OUTH DAILY Oral; Duration: 30 Days Active Ondansetron 4 MG 1 tablet on the tong ue and allow to dissolve Orally Every 6 hours when needed for nausea; Duration: 30 days 04/12/2025 Active Immunizations Vaccine Route [...] Status Risk Notes Problem Colon cancer screening (387953814) Colon cancer screening (Z12.11) Active confirmed Problem History of adenomatous polyp of colon (875432626) History of adenomatous polyp of colon (Z86.010) Active confirmed Problem History of polyp of colon (situation) (894177929) Personal history of colonic polyps (Z86.010) Active confirmed Problem Nausea (870852342) Nausea (R11.0) Active confir med Problem Anorexia (16181772) Anorexia (R63.0) Active confirmed Problem History of gastrointestinal tract bypass (158611134) Intestinal bypass and anastomosis status (Z98.0) Active confirmed Problem Computed tomography result abnormal (393808762) Abnormal CT scan, colon (R93.3) Active confirmed Problem Diarrhea (42942786) Diarrhea, unspecified type (R19.7) Active confirmed Problem Villous adenoma of colon (771249328) Villous adenoma of colon (D37.4) Active confirmed Problem Abdominal discomfort (88666518) Abdominal discomfort (R10.9) Active confirmed Problem Diarrhea of presumed infectious origin (12506650) Diarrhea of presumed infectious origin (R19.7) Active confirmed Problem Mass of colon (finding) (777383439) Colonic mass (K63.89) Active confirmed Vital Signs Blood pressure diastolic 77 mm Hg 04/12/2025 Height 61 in 04/12/2025 Blood pressure systolic 111 mm Hg 04/12/2025 Weight 123 lbs 04/12/2025 BMI 23.24 kg/m2 04/12/2025 Encounters Encounter Location Date Provider Diagnosis [facility] [address] [place] [phone] 04/12/2025 Ashok Travis Nausea R11.0 ; Irritable bowel syndrome K58.9 ; Villous adenoma of colon D37.4 ; Diarrhea, unspecified type R19.7 and Colon cancer screening Z12.11 [facility] [address] [place] [phone] 09/15/2024 Ashok Travis [facility] [address] [place] [phone] 12/05/2024 Ashok Travis [facility] [address] [place] [phone] 02/07/2025 Ashok Travis Assessments Encounter Date Diagnosis [...] Provider Name:Ashok Travis , 04/16/2026 09:10:00 AM, [address] [place] [address], [address], [place], [address], Insurance Providers Payer Name Payer Address Payer Phone Subscriber Number Group Number Insured Name Patient Relationship to Insured Coverage Start Date Coverage End Date MEDICARE OF [place] [address] [place]AVEZ [id number] [phone] [id number] CHARLIECRESCENCIOSARITHA MARTINEZ Self - patient is the insured [id number] [address] [place] [phone] [id number] SARITHA GALVIN Self - patient is the insured Medical (General) History Medical History History ICD Code Anxiety/Depression--receiving TMS with Artemio Burch as of the 02/08/24 OV GERD Denies SD,DM,CVA,Lung disease,renal dise ase Colonoscopy in January of [...]
== END 2025-08-17 14:09 | disposition home or self-care (01) ==
LOC: HO.HMCFM 13:16
PROVIDERS: PCP Nurse Practitioner Family; Visit Provider Nurse Practitioner Family
DX: R39.9 Unspecified symptoms and signs involving the genitourinary system (principal); R35.0 Frequency of micturition; Z84.19 Family history of other disorders of kidney and ureter; R10.A3 Flank pain, bilateral

== ENCOUNTER 2025-08-17 13:15 | Outpatient (REF) | payer MEDICARE, MEDICAID, SELFPAY | END 2025-08-17 13:16 | disposition home or self-care (01) | LOC: HO.LAB 13:15 | PROVIDERS: PCP Nurse Practitioner Family; Visit Provider Nurse Practitioner Family | DX: R39.9 Unspecified symptoms and signs involving the genitourinary system (principal); R35.0 Frequency of micturition; R10.A3 Flank pain, bilateral; Z79.2 Long term (current) use of antibiotics; Z79.899 Other long term (current) drug therapy; Z84.19 Family history of other disorders of kidney and ureter | CPT/HCPCS: 87086; 99212 ==

== ENCOUNTER 2025-08-17 15:42 | Outpatient (REF) | payer MEDICARE, MEDICAID, SELFPAY ==
--- NOTE | ~2025-08-17 | US_ITS ---
EXAMINATION: US RETROPERITONEAL COMPLETE (RENAL) CLINICAL INFORMATION: Frequency of micturition. COMPARISON: None TECHNIQUE: Real-time imaging of the kidneys and bladder. FINDINGS: RIGHT KIDNEY: 10 x 3.2 x 4.8 cm (SAG x AP x TRV). The kidney is normal in size, contour, and echogenicity. Renal cortical thickness is normal. No calculi or focal parenchymal lesions. No hydronephrosis. LEFT KIDNEY: 9.8 x 4.5 x 4.8 cm (SAG x AP x TRV). The kidney is normal in size, contour, and echogenicity. Renal cortical thickness is normal. No calculi or focal parenchymal lesions. No hydronephrosis. BLADDER: Well distended and normal. Bilateral ureteral jets are demonstrated. Prevoid bladder volume is 284 mL. Postvoid bladder volume is 14 mL. Incidental 2.2 x 1.5 x 2 cm left ovarian cyst. US/US retroperitoneal comp IMPRESSION: Normal renal and bladder ultrasound.. Electronically signed by: Katelyn Man MD 08/17/2025 05:17 PM EDT
== END 2025-08-17 15:43 | disposition home or self-care (01) ==
LOC: HO.US 15:42
PROVIDERS: PCP Nurse Practitioner Family; Visit Provider Nurse Practitioner Family
DX: R35.0 Frequency of micturition (principal); R10.A0 Flank pain, unspecified side; Z84.19 Family history of other disorders of kidney and ureter
CPT/HCPCS: 76770

== ENCOUNTER → 2025-08-17 15:46 | Outpatient (BNV) | payer MEDICARE, MEDICAID, SELFPAY | PROVIDERS: PCP Nurse Practitioner Family; Visit Provider Radiology Diagnostic Radiology | DX: R35.0 Frequency of micturition (principal) | CPT/HCPCS: 76770 ==